=== PATIENT | female | born 1990 | race Caucasian/White ===

== ENCOUNTER 2016-06-20 18:29 | Emergency (ER) | payer MEDICAID ==
[~2016-06-20] VITALS: Ht 167.6 cm; Wt 98.9 kg
[~2016-06-20 18:29] MED LIST: ALBUTEROL-200 PUFFS/ IH; ANUSOL 1%-12.5%1 OIN TP; BACTRIM DS 8001 TAB PO; CLINDAMYCIN300 MG PO; DARVOCET-N 1001 EACH PO; DARVOCET-N6 EACH/PAK PO; DILAUDID2 MG PO; ELIMITE 5%60 GM/TUB1 TP; ENDOMETRIN100 MG VG; FLEXERIL10 MG PO; HYDROMORPHONE 44 MG PO; IBU-8800 MG PO; IMPLANON68 MG ID; KEFLEX 500MG.500 MG PO; KEFLEX500 M1 PO; LABETALOL200 MG PO; LEVAQUIN500 MG PO; LEVSIN/SL0.125 MG SL; LORTAB 5/500 501 TAB PO; MECLIZINE HYDRO25 MG PO; MEDROXYPROGESTE10 MG PO; MELOXICAM15 MG PO; MOTRIN 400MG.400 MG PO; MOTRIN600 MG PO; NAPROSYN 500MG500 MG PO; NOMEDS *; NOMEDS XX; NORCO 325 MG-51 TAB PO; ONDANSETRON ODT4 MG SL; PERCOCET 325 MG1 TA4 PO; PERCOCET 5/3251 EACH PO; PERCOCET 650 MG1 TAB PO; PHENERGAN 25MG.25 M1 PO; PHENERGAN25 M3 PO; PREDNISONE 20MG20 MG PO; PRENATAL PLUS1 TA1 PO; PROGESTERONE VG; PROVERA10 MG OR; PYRIDIUM 200MG200 MG PO; PYRIDIUM100 MG PO; ROBITUSSIN120 ML/BOT PO; SEPTRA DS 800 M1 TAB PO; TYLENOL ES500 M1 PO; TYLENOL ES500 MG PO; TYLENOL W/CODEI1 TA2 PO; TYLENOL WITH CO1 TA1 PO; ULTRAM 50 MG TA50 MG PO; ULTRAM50 MG PO; VERMOX100 MG PO; VIBRAMYCIN 100100 MG PO; VICODIN 5/500 T1 TAB PO; VOLTAREN75 MG PO; ZOFRAN ODT4 MG PO; ZOFRAN4 MG PO
[2016-06-20 18:45] LABS: UTC STREP SCREEN NOT DETECTED (NOTDETECTED)
[2016-06-20 18:47] VITALS: BP 124/89
[2016-06-20] MEDS ORDERED: ZITHROMAX Z PA250 MG PO (18:48)
[2016-06-20] MEDS ORDERED: MEDROL 4MG. DOSE4 MG PO (18:48)
--- NOTE | 2016-06-20 18:49 | Urgent Treatment Center Report ---
History of Present Issue Date/Time Seen by Provider 06/20/16 1842 Visit Reason Pt arrived:Walked Presenting Problem:HEADACHES, BLISTERS IN HER THROAT, FEVERS AND CHILLS. Location if Accident: Onset of symptoms date/time:/ or onset unknown for:MEDICAL HX UNKNOWN Have you (or family members/close friends) recently traveled outside the [place]? N If Yes, where/when: Have you had exposure to infectious disease within the past month? TB? Other? Specify: Patient states that she has blisters in her throat having fever chills and headaches state that she just doesn't feel well at all for the last 2 days. ALLERGIES Coded Allergies: penicillin G (06/10/15) History Medical History General CAD? No Angina: No [place]: No Hypertension? No Hyperlipidemia? No CHF? No DVT? No PE? No COPD? No Asthma? Yes Anemia? No GERD? No Gastric ulcers? No GI Bleed? No Hernia? No Thyroid Problems? No Hypothyroidism? No CVA? No Seizures? No Diabetes? No Insulin Pump: No Home FSBS? No Renal Insuffiency? No UTI? Yes Stones? No BPH? No GB Disease: Yes Nephritic Syndrome? No Asplenia? No Hepatitis? No Sickle Cell Disease? No Arthritis? No Migraines? No Cataracts? No Glaucoma? No MRSA? No HIV? No TB? No Anxiety? No Depression? No Cancer? No Immunization HX DT/Tetanus 1-4 Years Ago Flu Refused Pneumonia Refuses Surgical Hx Previous Surgery?Y D & C RT FALLOPIAN TUBE Family History Family HX Diabetes Yes CAD No Hypertension Yes Hyperlipidemia No Cancer Yes TB No Social History Smoking Hx Smoker: Current Every Day Smoker Tobacco: Yes Type Cigarettes Packs/day 1 1/2 - 2 Packs Alcohol Alcohol: No Review of Systems All Other Systems Reviewed and Negative Constitutional chills, fever ENT throat pain. Musculoskeletal other (body aches) Physical Exam Vital Signs Vital Signs Date Time Temp Pulse Resp B/P Pulse O2 O2 Flow FiO2 Ox Delivery Rate 06/20 1846 98.3 103 20 124/89 97 06/20 183 98.3 103 20 124/89 97 General Appearance Patient appears ill, sitting in chair, pale in color Ear, Nose, Throat tonsillar exudate, tonsillar swelling, Throat bright red, blisters noted on tonsils, white drainage from lesions noted Respiratory Status Yes: trachea midline, chest symmetrical. No: respiratory distress. 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 No Results/Orders Laboratory Tests 06/20/161835: Influenza Type A Ag Pending, Influenza Type B Ag Pending, Group A Strep Screen Pending Orders Procedure Date/time Status UTC STREP SCREEN 06/21 1835 Active UTC FLU A,B 06/21 1835 Active Departure Departure Time of Disposition 1848 Disposition DC Home or Self Care(routine) Clinical Impression Primary Impression: Upper respiratory infection Qualifiers: URI type: acute tonsillitis Pharyngitis/tonsillitis etiology: unspecified etiology Qualified Code: J03.90 - Acute tonsillitis, unspecified Condition STABLE Referrals Berry Cage MD (Family) Patient Instructions Sore Throat Additional Instructions Over the counter Motrin or Tylenol as needed for fever Follow up with family doctor Return if needed Discharge Counseling Counseled pt/family regarding diagnosis, test results, medications/RX, home care, follow up needs Prescriptions Current Visit Scripts Azithromycin (Zithromycin (Z-LEN) 250MG Tab) 250 MG PO DAILY #6 TAB TAKE TWO (2) TABLETS ON DAY 1, THEN ONE (1) TABLET DAY #2 THRU #5 Methylprednisolone (Medrol Dose Len) 4 MG PO UD #1 LEN TAKE DIRECTED ON PACKAGING at 1849
== END 2016-06-20 18:53 | disposition home or self-care (01) ==
LOC: UTC 18:29
PROVIDERS: Nurse Practitioner
DX: J03.90 Acute tonsillitis, unspecified (principal)

== ENCOUNTER 2016-10-18 23:10 | Emergency (ER) | payer MEDICAID ==
[~2016-10-18] VITALS: Ht 167.6 cm; Wt 95.3 kg
[~2016-10-18 23:10] MED LIST changes: +CLINDAMYCIN HC300 MG PO; +IBUPROFEN800 MG PO; +MEDROL 4MG. DOSE4 MG PO; +ZITHROMAX Z PA250 MG PO
[2016-10-18 23:24] LABS: URINE BILIRUBIN - DIPSTICK NEGATIVE (NEG); URINE BLOOD NEGATIVE (NEG)
--- NOTE | 2016-10-18 23:24 | Emergency Room Report ---
History of Present Illness Time Seen by MD Quiles Presenting Problem in Triage Pt arrived:Walked Presenting Problem:THINKS SHE MAY BE REQUESTING TEST AND WANTS CONTROL BAR REMOVED. 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 N Clinical Suspician of Infection? N Mental Status: 1 - Regular (Normal Baseline) Sepsis Risk:Low Sepsis Risk Have you (or family members/close friends) recently traveled outside the [place]? N If Yes, where/when: Have you had exposure to infectious disease within the past month? N TB? Other? Specify: Source patient, RN notes reviewed, family, old records Exam Limitations no limitations Comment pt with abm menses and had possible home preg test pos - no bleeding - has implant Cardiac Chest Pain Chest pain indicative of cardiac No Timing/Duration this evening Severity moderate ALLERGIES Coded Allergies: penicillin G (08/09/16) History Medical History General CAD? No Angina: No [place]: No Hypertension? No Hyperlipidemia? No CHF? No DVT? No PE? No COPD? No Asthma? Yes Anemia? No GERD? No Gastric ulcers? No GI Bleed? No Hernia? No Thyroid Problems? No Hypothyroidism? No CVA? No Seizures? No Diabetes? No Insulin Pump: No Home FSBS? No Renal Insuffiency? No End Stage Renal Disease? No UTI? Yes Stones? No BPH? No GB Disease: Yes Nephritic Syndrome? No Asplenia? No Hepatitis? No Sickle Cell Disease? No Arthritis? No Migraines? Yes Cataracts? No Glaucoma? No MRSA? No HIV? No TB? No Anxiety? No Depression? No Cancer? 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 Respiratory denies cough, denies shortness of breath, denies wheezing Cardiovascular denies chest pain, denies palpitations, denies syncope Gastrointestinal see HPI, denies abdominal pain, nausea, denies vomiting Genitourinary see HPI. denies: dysuria, frequency, hesitancy, hematuria. Musculoskeletal denies back pain, denies joint pain, denies joint swelling, denies neck pain Skin denies rash Psychiatric/Neurological denies seizure Physical Exam Vital Signs Vital Signs Date Time Temp Pulse Resp B/P Pulse O2 O2 Flow FiO2 Ox Delivery Rate 10/18 2313 98.2 83 18 154/100 99 - WBC >12,000 or <4,000 or 10% bands? 2 or more SIRS Criteria Met? B/P:154/100 MAP:118 Creatinine >2.0? UA output<0.5ml/kg/hr for 2 hrs? Platelet count >100,000? Lactate >2.0mmol/1? INR >1.2 or PTT > than 60 sec? Evidence of Organ Dysfunction? Provider documented clinical suspician of infection? N Sepsis Criteria Count: 0 Sepsis Risk: Low Sepsis Risk General Appearance no apparent distress Eye Exam - bilateral eye PERRL, bilateral eye EOMI Ear, Nose, Throat normal ENT inspection Neck supple Respiratory Status No: respiratory distress. 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 No Results/Orders Laboratory Tests 10/18/165: Urine Color YELLOW, Urine Appearance CLEAR, Urine pH 6.0, Ur Specific [place] >= 1.030, Urine Protein TRACE H, Urine Ketones NEGATIVE, Urine Blood NEGATIVE, Urine Nitrate NEGATIVE, Urine Bilirubin NEGATIVE, Urine Urobilinogen 0.2, Ur Leukocyte Esterase NEGATIVE, Urine RBC OCC, Urine WBC 3-5, Ur Squamous Epith Cells 3-5, Amorphous Sediment 1+, Urine Bacteria 1+, Urine Mucus 1+, Urine Glucose NEGATIVE Orders Procedure Date/time Status URINALYSIS/COMPLETE 10/18 2316 Complete URINE 10/18 2316 Complete Departure Departure Time of Disposition 2344 Disposition DC Home or Self Care(routine) Clinical Impression Primary Impression: Menstrual abnormality Condition STABLE Referrals Berry Cage MD (Family) Patient Instructions Medications and Additional Instructions see autotransfusionist for follow up Discharge Counseling Counseled pt/family regarding diagnosis, test results, follow up needs ED Critical Care Critical Care No at [id number]
--- NOTE | 2016-10-18 23:24 | Emergency Room Report ---
History of Present Illness Time Seen by MD Quiles Presenting Problem in Triage Pt arrived:Walked Presenting Problem:THINKS SHE MAY BE REQUESTING TEST AND WANTS CONTROL BAR REMOVED. 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 N Clinical Suspician of Infection? N Mental Status: 1 - Regular (Normal Baseline) Sepsis Risk:Low Sepsis Risk Have you (or family members/close friends) recently traveled outside the [place]? N If Yes, where/when: Have you had exposure to infectious disease within the past month? N TB? Other? Specify: Source patient, RN notes reviewed, family, old records Exam Limitations no limitations Comment pt with abm menses and had possible home preg test pos - no bleeding - has implant Cardiac Chest Pain Chest pain indicative of cardiac No Timing/Duration this evening Severity moderate ALLERGIES Coded Allergies: penicillin G (08/09/16) History Medical History General CAD? No Angina: No [place]: No Hypertension? No Hyperlipidemia? No CHF? No DVT? No PE? No COPD? No Asthma? Yes Anemia? No GERD? No Gastric ulcers? No GI Bleed? No Hernia? No Thyroid Problems? No Hypothyroidism? No CVA? No Seizures? No Diabetes? No Insulin Pump: No Home FSBS? No Renal Insuffiency? No End Stage Renal Disease? No UTI? Yes Stones? No BPH? No GB Disease: Yes Nephritic Syndrome? No Asplenia? No Hepatitis? No Sickle Cell Disease? No Arthritis? No Migraines? Yes Cataracts? No Glaucoma? No MRSA? No HIV? No TB? No Anxiety? No Depression? No Cancer? 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 Respiratory denies cough, denies shortness of breath, denies wheezing Cardiovascular denies chest pain, denies palpitations, denies syncope Gastrointestinal see HPI, denies abdominal pain, nausea, denies vomiting Genitourinary see HPI. denies: dysuria, frequency, hesitancy, hematuria. Musculoskeletal denies back pain, denies joint pain, denies joint swelling, denies neck pain Skin denies rash Psychiatric/Neurological denies seizure Physical Exam Vital Signs Vital Signs Date Time Temp Pulse Resp B/P Pulse O2 O2 Flow FiO2 Ox Delivery Rate 10/18 2313 98.2 83 18 154/100 99 - WBC >12,000 or <4,000 or 10% bands? 2 or more SIRS Criteria Met? B/P:154/100 MAP:118 Creatinine >2.0? UA output<0.5ml/kg/hr for 2 hrs? Platelet count >100,000? Lactate >2.0mmol/1? INR >1.2 or PTT > than 60 sec? Evidence of Organ Dysfunction? Provider documented clinical suspician of infection? N Sepsis Criteria Count: 0 Sepsis Risk: Low Sepsis Risk General Appearance no apparent distress Eye Exam - bilateral eye PERRL, bilateral eye EOMI Ear, Nose, Throat normal ENT inspection Neck supple Respiratory Status No: respiratory distress. 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 No Results/Orders Laboratory Tests 10/18/165: Urine Color YELLOW, Urine Appearance CLEAR, Urine pH 6.0, Ur Specific [place] >= 1.030, Urine Protein TRACE H, Urine Ketones NEGATIVE, Urine Blood NEGATIVE, Urine Nitrate NEGATIVE, Urine Bilirubin NEGATIVE, Urine Urobilinogen 0.2, Ur Leukocyte Esterase NEGATIVE, Urine RBC OCC, Urine WBC 3-5, Ur Squamous Epith Cells 3-5, Amorphous Sediment 1+, Urine Bacteria 1+, Urine Mucus 1+, Urine Glucose NEGATIVE Orders Procedure Date/time Status URINALYSIS/COMPLETE 10/18 2316 Complete URINE 10/18 2316 Complete Departure Departure Time of Disposition 2344 Disposition DC Home or Self Care(routine) Clinical Impression Primary Impression: Menstrual abnormality Condition STABLE Referrals Berry Cage MD (Family) Patient Instructions Medications and Additional Instructions see window decorator for follow up Discharge Counseling Counseled pt/family regarding diagnosis, test results, follow up needs ED Critical Care Critical Care No at [id number]
--- OUTSIDE RECORDS SUMMARY | 2016-10-18 23:32 | External Medical Summary Rpt ---
Author Author , Organization [employer] Address Unknown Phone Unavailable Care Team Providers Care Foster Winder Name Role Phone A Mariama LONG MD PSC, A Unavailable Unavailable Mariama LONG MD PSC ALFARIS MOH, ALFARIS Unavailable Unavailable MOH ALFARIS MOH, ALFARIS Unavailable Unavailable MOH Casey Israel MD, Unavailable Unavailable Casey DOE, GOLDY DOE Unavailable Unavailable [facility] Unavailable Unavailable [facility], [facility] Unavailable Unavailable [facility]IES, [facility]available Unavailable SERVICE, [facility] Unavailable Unavailable SERVICE, [facility] LANGSTON VEL, LANGSTON Unavailable Unavailable VEL LANGSTON VEL, LANGSTON Unavailable Unavailable VEL MELA LANGSTON, Unavailable Unavailable MELA LANGSTON [facility], Unavailable Unavailable [facility], Unavailable Unavailable [facility] СЕРГЕЙ LEVY, Unavailable Unavailable СЕРГЕЙ LEVY MARIPOSA, ANTONIO Unavailable Unavailable MARIPOSA ANTONIO MARIPOSA, ANTONIO Unavailable Unavailable MARIPOSA ISABELA ALVAREZ, Unavailable Unavailable ISABELA ALVAREZ MD, Unavailable Unavailable GIANCARLO CARBAJAL MD HARPEYvon LÓPEZ, HARPEL Unavailable Unavailable LÓPEZ HARPEYvon LÓPEZ, HARPEL Unavailable Unavailable LÓPEZ [facility] Unavailable Unavailable CENTER, [facility] Unavailable Unavailable CENTER, HOSP Unavailable Unavailable INC, [facility] Un[facility], [facility] OZ W[facility], Unavailable Unavailable O[facility] W[facility] Unavailable Unavailable SERVICES, [facility] RANDY RACHEL, RANDY RACHEL Unavailable Unavailable RANDY RACHEL, RANDY RACHEL Unavailable Unavailable [facility] Unavailable Unavailable LAB[facility] Unavailable Unavailable LAB, [id number], Unavailable Unavailable [id number] CHRISTEN PRESCOTT, CHRISTEN PRESCOTT Unavailable Unavailable CHRISTEN PRESCOTT, CHRISTEN PRESCOTT Unavailable Unavailable SOKAN BAB, SOKAN BAB Unavailable Unavailable [facility] Unavailable Unavailable #[id number], [id number] DOREEN BARCLAY III, Unavailable Unavailable DOREEN BARCLAY III TANNER FELIPE HART Unavailable Unavailable LONG A, ETHAN A Unavailable Unavailable Purpose Continuity of Care Document - 04-05-2009 through 2016 Problems Code Diagnosis DOS Provider Status 1121 CANDIDIASIS 11-28-2013 [facility] S V259 UNSPECIFIED 11-28-2013 HARPEL LÓPEZ CONTRACEPTI VE MANAGEMENT V7231 ROUTINE 11-28-2013 HARPEL LÓPEZ GYNECOLOGIC AL EXAMINATION 6825 CELLULITIS 07-02-2013 ALFARIS MOH AND ABSCESS OF BUTTOCK 8471 THORACIC 02-14-2013 RANDY RACHEL SPRAIN AND STRAIN V8534 BODY MASS 02-14-2013 RANDY RACHEL INDEX 34.0-34.9 ADULT 8483 SPRAIN AND 01-20-2013 RANDY RACHEL STRAIN OF RIBS 00480 OTHER ACUTE 01-15-2013 [facility] PAIN V2509 OT GENERAL 11-22-2012 HARPEL LÓPEZ CNSL&ADVICE CONTRACEPT MANAGEMENT V242 ROUTINE 11-15-2012 HARPEL LÓPEZ FOLLOW-UP 64441 SEVERE 10-13-2012 HARPEL LÓPEZ PRE-ECLAMPS IA, WITH DELIVERY 22488 ABNORM 10-13-2012 HARPEL LÓPEZ HEART RATE/RHYTHM ANTPRTM COND/COMP 75501 C/S DELIV 10-13-2012 HARPEL LÓPEZ W/O INDICAT DELIV W/WO ANTPRTM COND V270 OUTCOME OF 10-13-2012 HARPEL LÓPEZ DELIVERY SINGLE LIVEBORN 84682 MILD OR 10-11-2012 CHRISTEN PRESCOTT UNSPECIFIED PRE-ECLAMPS IA WITH DELIVERY 09885 ABN FETL 10-11-2012 CHRISTEN PRESCOTT HRT RATE/RHYTHM DELIV W/WO ANTPRTM COND 00975 UNSPEC 10-08-2012 HARPEL LÓPEZ HYPERTENSIO N COND/COMPL 22941 OTHER 10-08-2012 [facility] SPECIFED [facility] COMPLICATIO N ANTEPARTUM V221 SUPERVISION 10-08-2012 HARPEL LÓPEZ OF OTHER NORMAL 73800 OTH CURRENT 09-17-2012 [facility] E ELSW ANTPRTM 7245 UNSPECIFIED 09-17-2012 [facility] 789.67 789.67 09-17-2012 [facility] ABDOMINAL [facility] TENDERNESS, Hospital GENERALIZED 21432 ABDOMINAL 09-17-2012 [facility] TENDERNESS, [facility] GENERALIZED 36423 HEAD 09-17-2012 [facility] INJURY, AMBULANCE UNSPECIFIED SERVICE E849.8 E849.8 09-17-2012 [facility] ACCIDENT IN [facility] E880.9 E880.9 FALL 09-17-2012 [facility] ON [facility] STAIR/STEP Hospital [facility] E8809 ACCIDENTAL 09-17-2012 ABHIJIT FALL ON OR EMERGENCY FROM OTHER SERVICES STAIRS OR STEPS E8889 UNSPECIFIED 09-17-2012 [facility] V22.2 V22.2 PREG 09-17-2012 [facility] Hospital V222 09-17-2012 [facility] INCIDENTAL [facility] V286 SCREENING 09-13-2012 [facility] STREPTOCOCC INC US B 5990 URINARY 08-30-2012 [facility] TRACT [facility] INFECTION INC SITE NOT SPECIFIED 13355 THREATENED 08-30-2012 [facility] PRE[facility] LABOR ANTEPARTUM 79407 UNSPECIFIED 07-29-2012 HARPEL LÓPEZ VAGINITIS AND VULVOVAGINI TIS V771 SCREENING 07-18-2012 [facility] FOR [facility] DIABETES INC MELLITUS 32572 DECR 06-19-2012 [facility] MOVMNTS MGMT MOTH ANTPRTM COND/COMP 558.9 558.9 06-09-2012 [facility] IT NEC 5589 OTH&UNSPEC 06-09-2012 [facility]ECT[facility] US SERVICES GASTROENTER ITIS&COLITI S 75725 OTH CURRENT 06-09-2012 [facility]NAL [facility] CCE-COMPL SERVICES PG CB/PP-UNS EOC V2889 OTHER 05-23-2012 [facility] SPECIFIED [facility] SCREENING 32731 UNSPEC 03-25-2012 HARPEL LÓPEZ HEMORRHAGE EARLY ANTEPARTUM 62748 THREATENED 03-16-2012 [facility] , [facility] ANTEPARTUM INC 94776 UNSPEC 03-16-2012 ANTONIO MARIPOSA HEMORR EARLY PG UNSPEC EPIS CARE 6268 OTH D/O 03-09-2012 [facility] MENSTRUATIO [facility] N&OTH ABN INC BLEED FE GNT TRACT V2881 ENCOUNTER 03-01-2012 HARPEL LÓPEZ FOR ANATOMIC SURVEY V704 EXAMINATION 03-01-2012 HARPEL LÓPEZ FOR MEDICOLEGAL REASON 86285 TRICHOMONAL 08-28-2011 HARPEL LÓPEZ VULVOVAGINI TIS V745 SCREENING 08-17-2011 HARPEL LÓPEZ EXAMINATION FOR VENEREAL DISEASE 6262 EXCESSIVE 08-07-2011 HARPEL LÓPEZ OR FREQUENT MENSTRUATIO N 7840 HEADACHE 05-24-2011 Lori LONG MD [facility] 7614 FETUS/NEWBO 03-03-2011 GIANCARLO Love RN AFFECTED ANURADHA DOE ECTOPIC MOTHER V2502 GENERAL 03-03-2011 GIANCARLO Love CNSL ANURADHA DOE INITIATION OT CONTRACEPT MEASURES 6202 OTHER AND 02-17-2011 GIANCARLO Love UNSPECIFIED ANURADHA DOE OVARIAN CYST 27014 TUBAL 02-17-2011 PATHOLOGY & CYTOLOGY WITHOUT LAB INTRAUTERIN E 77289 UNSPEC 02-16-2011 [facility] WITHOUT IMAGING ASS INTRAUTERIN E PG 632 MISSED 02-11-2011 [facility] V7242 02-08-2011 [facility] EXAMINATION HE[facility] OR TEST CENTER POSITIVE RESULT 6269 UNS D/O 05-31-2009 ABHIJIT MENSTRUATIO EMERGENCY N&OTH ABN SERVICES BLEED FE ASSOCIATES GNT TRACT 10687 UNSPECIFIED 05-21-2009 [facility] DENTAL [facility] CARIES INC 5259 UNSPECIFIED 05-21-2009 ABHIJIT DISORDER EMERGENCY TEETH&SUPPO SERVICES [facility] STRUCTURES 6238 OTHER 04-27-2009 [place] NONINFLAMMA [facility] DISORDER VAGINA B34.9 VIRAL INFECTION, UNSPECIFIED B86 SCABIES E86.0 DEHYDRATION H81.399 OTHER PERIPHERAL VERTIGO, UNSPECIFIED EAR J40 BRONCHITIS, NOT SPECIFIED ACUTE OR CHRONIC K11.20 SIALOADENIT IS, UNSPECIFIED K52.9 NONINFECTIV E GASTROENTER ITIS AND COLITIS, UNSPECIFIED K75.9 INFLAMMATOR Y LIVER DISEASE, UNSPECIFIED K80.00 CALCULUS OF GALLBLADDER W ACUTE CHOLECYST W/O OBSTRUCTION K80.20 CALCULUS OF GALLBLADDER W/O CHOLECYSTIT IS W/O OBSTRUCTION K80.50 CALCULUS OF BILE DUCT W/O CHOLANGITIS OR CHOLECYST W/O OBST L02.31 CUTANEOUS ABSCESS OF BUTTOCK L03.317 CELLULITIS OF BUTTOCK L05.91 PILONIDAL CYST WITHOUT ABSCESS M54.9 DORSALGIA, UNSPECIFIED N39.0 URINARY TRACT INFECTION, SITE NOT SPECIFIED O26.611 LIVER AND BILIARY TRACT DISORD IN , FIRST TRIMESTER O26.613 LIVER AND BILIARY TRACT DISORD IN , THIRD TRIMESTER R10.11 RIGHT UPPER QUADRANT PAIN R10.9 UNSPECIFIED ABDOMINAL PAIN R11.2 NAUSEA WITH VOMITING, UNSPECIFIED R51 HEADACHE Z33.1 STATE, INCIDENTAL Z34.90 ENCNTR FOR SUPRVSN OF NORMAL , UNSP, UNSP TRIMESTER Z72.0 TOBACCO USE Allergies, Adverse Reactions, Alerts Type Drug Allergy Adverse Reaction to Substance Substance Reaction Severity Penicillin I-HIVES Unknown Medications Na ND Rx Da Fi Fi Am Da Di Ph RX Ph St me C No te ll ll ou ys ag ar # ys at rm s nt no ma ic us Or Da si cy ia de te s n re d Ke 50 06 0 No to 11 -3 ro 10 0- Lo la 60 20 ng c 80 13 er 10 1 MG Ac ti Ta ve bl et Ke 50 06 0 No to 11 -2 ro 10 9- Lo la 60 20 ng c 80 13 er 10 1 MG Ac ti Ta ve bl et So 00 06 0 No di 07 -2 um 47 8- Lo 10 20 ng Ch 12 13 er lo 3 ri Ac de ti ve 0. 9% 10 0M L Ad v CL 00 06 0 No EO 00 -2 CI 90 8- Lo N 90 20 ng PH 21 13 er OS 8 Ac 15 ti 0 ve MG /M L AL MA 00 06 2 No PA 90 -2 P 41 8- Lo 32 98 20 ng 5 26 13 er MG 1 Ac TA ti BL ve ET OX 00 06 2 No YC 40 -2 OD 60 8- Lo ON 55 20 ng E 26 13 er HC 2 L Ac 5 ti MG ve TA BL ET Si 00 06 2 No me 18 -2 th 28 8- Lo ic 64 20 ng on 38 13 er e 9 80 Ac MG ti ve Ch ew ab le Ta bl ON 00 06 0 No DA 64 -2 NS 16 8- Lo ET 08 20 ng RO 02 13 er N 5 HC Ac L ti 4 ve MG /2 ML AL KE 00 06 2 No TO 40 -2 RO 93 8- Lo LA 79 20 ng C 50 13 er 30 1 Ac MG ti /M ve L AL SO 00 06 0 No DI 40 -2 UM 97 8- Lo 98 20 ng CH 43 13 er LO 7 RI Ac DE ti ve 0. 9% SO TONY TI ON LE 25 06 0 No VO 02 -2 FL 10 8- Lo OX 13 20 ng AC 28 13 er IN 2 Ac 50 ti 0 ve MG /1 00 ML -D 5W LA [address] 40 -2 AT 97 8- Lo ED 95 20 ng 30 13 er RI 9 NG Ac ER ti S ve IN JE CT IO N MA 00 06 4 No GN 40 -2 ES 96 6- Lo IU 72 20 ng M 90 13 er GOINS 3 LF Ac ti 20 ve G/ 50 0 ML BA G MA 00 06 1 No GN 40 -2 ES 96 5- Lo IU 72 20 ng M 90 13 er GOINS 3 LF Ac ti 20 ve G/ 50 0 ML BA G LA [address] 40 -2 AT 97 5- Lo ED 95 20 ng 30 13 er RI 9 NG Ac ER ti S ve IN JE CT IO N BU 55 06 0 No TO 39 -2 RP 00 5- Lo GUNN 18 20 ng NO 30 13 er L 1 1 Ac MG ti /M ve L AL ON 55 02 0 No DA 11 -2 NS 10 4- Lo ET 15 20 ng RO 31 13 er N 3 HC Ac L ti 4 ve MG TA BL ET ME 00 02 02 00 10 10 [place] [address] 55 -1 -2 .0 L- 58 HR ti OX 50 5- 6- 00 MA 60 MA ve YP 77 20 20 RT 2 N RO 90 10 10 II GE [address] AR WI ER MA LL ON CY IA E M 10 #5 E 91 MG TA B 00 02 02 00 12 3 WA 44 RU Ac 40 -0 -1 .0 L- 83 SH ti 60 1- 1- 00 MA 20 ve 35 20 20 RT 6 NE 70 10 10 IL 5 PH C AR MA CY #5 91 00 01 01 00 12 2 RI 81 GUNN Ac 40 -1 -2 .0 TE 75 RP ti 60 6- 8- 00 05 EL ve 35 20 20 AI 70 10 10 D GE 5 PH RA AR LD M R #3 93 8 00 01 01 00 10 3 RI 81 GUNN Ac 07 -1 -2 .0 TE 75 RP ti 80 6- 8- 00 04 EL ve 05 20 20 AI 40 10 10 D GE 5 PH RA AR LD M R #3 93 8 00 01 01 00 20 2 WA 44 CL Ac 40 -0 -1 .0 L- 82 AR ti 60 8- 4- 00 MA 60 KE ve 35 20 20 RT 7 70 10 10 DE 5 PH RE AR K MA J CY #5 91 Vital Signs 10-11-2012 07:06 Name Value Interpretat Reference Comment ion Range Weight 251 [lb_av] Measured Weight 113.853 kg Measured 09-17-2012 19:36 Name Value Interpretat Reference Comment ion Range BP 78 mm[Hg] Diastolic BP Systolic 145 mm[Hg] 09-17-2012 19:35 Name Value Interpretat Reference Comment ion Range Body 98.6 [degF] Temperature Heart 91 /min Rate/Pulse O2% 98 % Respiratory 16 /min Rate 09-17-2012 19:34 Name Value Interpretat Reference Comment ion Range BP 78 mm[Hg] Diastolic BP Systolic 145 mm[Hg] Heart 91 /min Rate/Pulse O2% 98 % Respiratory 16 /min Rate 06-09-2012 22:14 Name Value Interpretat Reference Comment ion Range Body 98.4 [degF] Temperature BP 69 mm[Hg] Diastolic BP Systolic 134 mm[Hg] Heart 81 /min Rate/Pulse O2% 97 % Respiratory 17 /min Rate 06-09-2012 22:12 Name Value Interpretat Reference Comment ion Range Body 98.4 [degF] Temperature 06-09-2012 21:42 Name Value Interpretat Reference Comment ion Range BP 85 mm[Hg] Diastolic BP Systolic 127 mm[Hg] Heart 80 /min Rate/Pulse O2% 98 % Respiratory 17 /min Rate Results Labs Lab Lab Date Result Refere Interp Status Commen Order Detail nces retati t Range on pH BldCo (10-11-2012 09:01) pH 7.37 7.35-7. complet BldCo 013 UNK 45 ed 09:01 Magnesium SerPl-mCnc (10-10-2012 06:50) Magnesi 3.2 1.4-2.2 complet um 013 mg/dL ed SerPl-m 06:50 Cnc BASIC METABOLIC PANEL (10-10-2012 06:50) Glucose 83 74-106 complet 013 mg/dL ed Bld-mCn 06:50 c BUN 4 mg/dL 7-18 complet Bld-mCn 013 ed c 06:50 Creat 2 0.6 0.6-1.0 complet SerPl-m 013 mg/dL ed Cnc 06:50 ESTIMAT 0627-2 267 50-200 complet ED 013 ML/MIN ed CREATIN 06:50 INE CLEARAN CE GFR 126 59- complet (ESTIMA 013 ML/MIN ed JUDITH) 06:50 Sodium 137 136-145 complet SerPl-s 013 mmoL/L ed Cnc 06:50 Potassi 3.8 3.5-5.1 complet um 013 mmoL/L ed SerPl-s 06:50 Cnc Chlorid 105 98-107 complet e 013 mmoL/L ed SerPl-s 06:50 Cnc CO2 24 21.0-32 complet SerPl-s 013 mmoL/L .0 ed Cnc 06:50 Calcium 7.7 8.5-10. complet 013 mg/dL 1 ed SerPl-m 06:50 Cnc URIC ACID (10-10-2012 06:50) URIC 5.5 2.6-7.2 complet ACID 013 mg/dL ed 06:50 AST SerPl-cCnc (10-10-2012 06:50) AST 10 U/L 15-37 complet SerPl-c 013 ed Cnc 06:50 ALT SerPl-cCnc (10-10-2012 06:50) ALT 25 U/L 30-65 complet SerPl-c 013 ed Cnc 06:50 PROTIME/INR (10-10-2012 06:50) PROTHRO 9.2 9.9-11. complet MBIN 013 SECONDS 6 ed TIME 06:50 INR Bld 0.86 0.9-1.1 complet 013 UNK ed 06:50 ACT PARTIAL THROMBO TIME (10-10-2012 06:50) ACT 25.7 25.3-32 complet PARTIAL 013 SECONDS .0 ed 06:50 THROMBO TIME Fibrinogen PPP-mCnc (10-10-2012 06:50) Fibrino Greater 204.1-4 complet gen 013 than 58.1 ed PPP-mCn 06:50 500.0 c mg/dL D Dimer PPP (10-10-2012 06:50) D Dimer 1280 0-400 High complet PPP 013 ng/mL alert ed 06:50 CBC with AUTO DIFF (10-10-2012 06:50) WBC # 06-27-2 11.9 4.8-10. complet Bld 013 K/MM3 8 ed Auto 06:50 RBC # 0627-2 4.03 4.2-5.4 complet Bld 013 M/mm3 ed Auto 06:50 Hgb 10-10-2 12.0 12.2-16 complet Bld-mCn 013 g/dL .2 ed c 06:50 Hct Fr 10-10-2 36.8 % 37.0-47 complet Bld 013 .0 ed 06:50 MCV RBC 10-10-2 91.2 fl 82.2-97 complet 013 .8 ed 06:50 MCH RBC 10-10-2 29.7 pg 27-31.2 complet Qn 013 ed Auto 06:50 MEAN 10-10-2 32.5 31.8-35 complet CORPUSC 013 g/dl .4 ed ULAR 06:50 HGB CONC RDW RBC 10-10-2 13.9 % 11.5-17 complet Auto 013 .5 ed 06:50 Platele 10-10-2 300 142-424 complet t Bld 013 K/mm3 ed Ql 06:50 Manual MEAN 10-10-2 8.0 fl 7.4-10. complet PLATELE 013 4 ed T 06:50 VOLUME Granulo 10-10-2 75.2 % 37.0-80 complet cytes 013 .0 ed Fr Bld 06:50 Auto LYMPH % -27-2 18.8 % 10-50.0 complet 013 ed 06:50 Monocyt 27-2 4.8 % 1.7-9.3 complet es Fr 013 ed Bld 06:50 Auto Eosinop -27-2 1.2 % 0.1-12. complet hil Fr 013 0 ed Bld 06:50 Auto Basophi -27-2 0.1 % 0.1-2.0 complet ls Fr 013 ed Bld 06:50 Auto Granulo 06-27-2 8.9 1.8-7.8 complet cytes # 013 K/mm3 ed Bld 06:50 Auto Lymphoc -27-2 2.2 0.7-4.5 complet ytes Fr 013 K/mm3 ed Bld 06:50 Auto Monocyt 06-27-2 0.6 0.1-1.0 complet es # 013 K/mm3 ed Bld 06:50 Auto Eosinop 2 0.1 0.0-0.4 complet hil # 013 K/mm3 ed Bld 06:50 Auto Basophi 2 0.0 0-0.2 complet ls # 013 K/MM3 ed Bld 06:50 Auto URINE TOTAL PROT 24 HOUR (10-09-2012 17:45) URINE 24 complet COLLECT 013 HOURS ed ION 17:45 TIME URINE 3000 mL 600-160 complet TOTAL 013 0 ed VOLUME 17:45 URINE 381 40-90 complet TOTAL 013 mg/24 ed PROTEIN 17:45 HR CONC Magnesium SerPl-mCnc (10-09-2012 06:15) Magnesi 4.4 1.4-2.2 complet um 013 mg/dL ed SerPl-m 06:15 Cnc BASIC METABOLIC PANEL (10-08-2012 12:20) Glucose 77 74-106 complet 013 mg/dL ed Bld-mCn 12:20 c BUN 6 mg/dL 7-18 complet Bld-mCn 013 ed c 12:20 Creat 0.6 0.6-1.0 complet SerPl-m 013 mg/dL ed Cnc 12:20 GFR 126 59- complet (ESTIMA 013 ML/MIN ed JUDITH) 12:20 Sodium 136 136-145 complet SerPl-s 013 mmoL/L ed Cnc 12:20 Potassi 3.9 3.5-5.1 complet um 013 mmoL/L ed SerPl-s 12:20 Cnc Chlorid 105 98-107 complet e 013 mmoL/L ed SerPl-s 12:20 Cnc CO2 22 21.0-32 complet SerPl-s 013 mmoL/L .0 ed Cnc 12:20 Calcium 8.5 8.5-10. complet 013 mg/dL 1 ed SerPl-m 12:20 Cnc URIC ACID (10-08-2012 12:20) URIC 5.6 2.6-7.2 complet ACID 013 mg/dL ed 12:20 Magnesium SerPl-mCnc (10-08-2012 12:20) Magnesi 3.2 1.4-2.2 complet um 013 mg/dL ed SerPl-m 12:20 Cnc AST SerPl-cCnc (10-08-2012 12:20) AST 9 U/L 15-37 complet SerPl-c 013 ed Cnc 12:20 ALT SerPl-cCnc (10-08-2012 12:20) ALT 26 U/L 30-65 complet SerPl-c 013 ed Cnc 12:20 PROTIME/INR (10-08-2012 12:20) PROTHRO 9.4 9.9-11. complet MBIN 013 SECONDS 6 ed TIME 12:20 INR Bld 0.88 0.9-1.1 complet 013 UNK ed 12:20 ACT PARTIAL THROMBO TIME (10-08-2012 12:20) ACT 25.9 25.3-32 complet PARTIAL 013 SECONDS .0 ed 12:20 THROMBO TIME Fibrinogen PPP-mCnc (10-08-2012 12:20) Fibrino Greater 204.1-4 complet gen 013 than 58.1 ed PPP-mCn 12:20 500.0 c mg/dL D Dimer PPP (10-08-2012 12:20) D Dimer 1080 0-400 High complet PPP 013 ng/mL alert ed 12:20 CBC with AUTO DIFF (10-08-2012 12:20) WBC # 10-08-2 14.8 4.8-10. complet Bld 013 K/MM3 8 ed Auto 12:20 RBC # 4.41 4.2-5.4 complet Bld 013 M/mm3 ed Auto 12:20 Hgb 12.9 12.2-16 complet Bld-mCn 013 g/dL .2 ed c 12:20 Hct Fr 39.7 % 37.0-47 complet Bld 013 .0 ed 12:20 MCV RBC 90.0 fl 82.2-97 complet 013 .8 ed 12:20 MCH RBC 29.3 pg 27-31.2 complet Qn 013 ed Auto 12:20 MEAN 06-25-2 32.5 31.8-35 complet CORPUSC 013 g/dl .4 ed ULAR 12:20 HGB CONC RDW RBC 06-25-2 13.6 % 11.5-17 complet Auto 013 .5 ed 12:20 Platele 06-25-2 321 142-424 complet t Bld 013 K/mm3 ed Ql 12:20 Manual MEAN 06-25-2 8.0 fl 7.4-10. complet PLATELE 013 4 ed T 12:20 VOLUME Granulo 06-25-2 79.3 % 37.0-80 complet cytes 013 .0 ed Fr Bld 12:20 Auto LYMPH % 06-25-2 15.4 % 10-50.0 complet 013 ed 12:20 Monocyt 06-25-2 3.7 % 1.7-9.3 complet es Fr 013 ed Bld 12:20 Auto Eosinop 06-25-2 1.3 % 0.1-12. complet hil Fr 013 0 ed Bld 12:20 Auto Basophi 06-25-2 0.3 % 0.1-2.0 complet ls Fr 013 ed Bld 12:20 Auto Granulo 06-25-2 11.7 1.8-7.8 complet cytes # 013 K/mm3 ed Bld 12:20 Auto Lymphoc 06-25-2 2.3 0.7-4.5 complet ytes Fr 013 K/mm3 ed Bld 12:20 Auto Monocyt 06-25-2 0.6 0.1-1.0 complet es # 013 K/mm3 ed Bld 12:20 Auto Eosinop 06-25-2 0.2 0.0-0.4 complet hil # 013 K/mm3 ed Bld 12:20 Auto Basophi 06-25-2 0.0 0-0.2 complet ls # 013 K/MM3 ed Bld 12:20 Auto URINALYSIS/COMPLETE (06-09-2012 21:05) URINE 02-24-2 YELLOW YELLOW complet COLOR 013 ed 21:05 URINE 02-24-2 CLEAR CLEAR complet APPEARA 013 ed NCE 21:05 URINE -24-2 NEGATIV NEG complet GLUCOSE 013 E ed - 21:05 DIPSTIC K URINE 24-2 NEGATIV NEG complet BILIRUB 013 E ed IN - 21:05 DIPSTIC K URINE 24-2 NEGATIV NEG complet KETONE 013 E mg/dL ed 21:05 URINE 24-2 1.010 1.005-1 complet SPECIFI 013 UNK .030 ed C 21:05 GRAVITY URINE 24-2 NEGATIV NEG complet BLOOD 013 E ed 21:05 URINE 24-2 7.0 UNK 5.0-8.5 complet PH 013 ed 21:05 URINE 24-2 NEGATIV NEG complet PROTEIN 013 E mg/dL ed - 21:05 DIPSTIC K URINE 24-2 0.2 NEG complet UROBILI 013 E.U./dL ed NOGEN - 21:05 DIPSTIC K URINE 24-2 NEGATIV NEG complet NITRATE 013 E ed - 21:05 DIPSTIC K URINE 24-2 NEGATIV NEG complet LEUK 013 E ed ESTERAS 21:05 E URINE 06-09-2 3-5 0-5 complet SQUAMOU 013 #/hpf ed S CELLS 21:05 Procedures Procedure DOS Code Location Performer Comment URINLS 10945 HARPEL HARPEL DIP 4 LÓPEZ LÓPEZ STICK/TAB LET REAGNT NON-AUTO MICRSCPY IADNA 71275 BIO BIO CHLAMYDIA 4 REFERNCE REFERNCE LABORATOR LABORATOR TRACHOMAT IES IES IS AMPLIFIED PROBE TQ CULTURE 50712 HARPEL HARPEL CHLAMYDIA 4 LÓPEZ LÓPEZ ANY SOURCE CYTP C/V 99982 BIO BIO AUTO THIN 4 REFERNCE REFERNCE LYR LABORATOR LABORATOR PREPJ SCR IES IES MNL RESCR PHYS IADNA 57572 HARPEL HARPEL NEISSERIA 4 LÓPEZ LÓPEZ GONORRHOE AE DIRECT PROBE TQ IADNA 10833 BIO BIO NEISSERIA 4 REFERNCE REFERNCE LABORATOR LABORATOR GONORRHOE IES IES AE AMPLIFIED PROBE TQ IADNA NOS 86326 BIO BIO 4 REFERNCE REFERNCE 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 PROBE TQ IES IES EACH ORGANISM IADNA 33724 BIO BIO TRICHOMON 4 REFERNCE REFERNCE LABORATOR LABORATOR VAGINALIS IES IES AMPLIFIED PROBE TECH INCISION 00270 ALFARIS ALFARIS & 4 MOH MOH DRAINAGE ABSCESS COMPLICAT ED/MULTIP LE INCISION 41222 ANTONIO ANTONIO & 3 MARIPOSA MARIPOSA DRAINAGE ABSCESS COMPLICAT ED/MULTIP LE CUL BACT 90519 [facility] OREILLY XCPT 3 [facility] URINE INC INC BLOOD/STO OL AEROBIC ISOL SMR PRIM 24433 [facility] L[facility]PEZ L[facility]Z [place] [facility] AGT URINE 57323 [facility] L[facility]PEZ LÓPEZ TEST VISUAL COLOR CMPRSN METHS ETONOGEST J7307 [facility] REL 3 L[facility] L[facility] CNTRACPT IMPL SYS INCL IMPL & SPL INSJ 32854 [facility] NON-BIODE 3 L[facility] L[facility] GRADABLE DRUG DELIVERY IMPLANT CYTP C/V 90473 BIO BIO AUTO THIN 3 REFERNCE REFERNCE LYR LABORATOR LABORATOR PREPJ SCR IES IES MNL RESCR [facility] 36487 [facility] DISCHARGE 3 LÓPEZ LÓPEZ DAY MANAGEMEN T 30 MIN/< SBSQ 76796 [facility] 3 LÓPEZ LÓPEZ CARE/DAY 15 MINUTES LOW 741 [facility] ORE[facility] CERVICAL 3 [facility] INC SECTION 77052 [facility] DELIVERY 3 LÓPEZ LÓPEZ ONLY ANESTHESI 13666 [facility] SHA A 3 DELIVERY ONLY SBSQ 34298 [facility] 3 LÓPEZ LÓPEZ CARE/DAY 15 MINUTES SBSQ 99677 [facility] 3 LÓPEZ LÓPEZ CARE/DAY 15 MINUTES US PREG 70678 [facility] UTERUS 3 [facility] REAL TIME F/U TRNSABDL PER FETUS 35209 [facility] BIOPHYSIC 3 LÓPEZ LÓPEZ AL PROFILE NON-STRES S TESTING 92255 [facility] BIOPHYSIC 3 [facility] [facility] AL PROFILE NON-STRES S TESTING US PELVIC 54730 [facility] 3 [facility] NONOBSTET INC INC RODRIGUEZ REAL-TIME IMAGE COMPLETE GROUND A0425 [facility] 3 AMBULANCE AMBULANCE PER SERVICE SERVICE STATUTE MILE AMBULANCE A0429 [facility] SERVICE 3 AMBULANCE AMBULANCE BLS SERVICE SERVICE EMERGENCY TRANSPORT PARTICLE 94498 [facility] AGGLUTINA 3 [facility] TION INC INC SCREEN EACH ANTIBODY CUL 85764 [facility] PRSMPTV 3 LÓPEZ LÓPE[facility] PTHGNC ORGANISM SCRN W/COLONY ESTIMJ 85349 KIAN [facility] NONSTRESS 3 VEL VEL TEST URNLS DIP 65084 [facility] STICK/TAB INC INC LET REAGENT AUTO MICROSCOP Y FTL 73561 [facility] FIBRONECT 3 [facility] IN INC INC CERVICOVA G SECRETION S SEMI-DARWIN SMR PRIM 48075 [facility] SRC WET 3 LÓPEZ LÓ[facility] MOUNT NFCT AGT GLUCOSE 31384 [facility] POST 3 [facility] GLUCOSE INC INC DOSE BLOOD 78463 [facility] COUNT 3 [facility] COMPLETE INC INC AUTO&AUTO DIFRNTL WBC SMR PRIM 33508 [facility] SRC WET 3 LÓ[facility] MOUNT NFCT AGT 35784 KIAN LANGSTON NONSTRESS 3 VEL VEL TEST US PREG 52724 [facility] UTERUS 3 LÓPEZ LÓPEZ AFTER 1ST TRIMEST GESTATION IAADI 67404 [facility] INFLUENZA 3 [facility] B VIRUS INC INC IAADI 06344 [facility] INFFLUENZ 3 [facility] A A VIRUS INC INC ONDANSETR Q0162 [facility] ON 1 MG 3 [facility] ORL NOT INC [place]CE[place] [address] [place] [address] ABHIJIT HART 3 EMERGENCY UTERUS SERVICES LIMITED 1/> FETUSES URNLS DIP 77378 [facility] STICK/TAB INC INC [place] [address] [facility] ESTRIOL 3 [facility] INC INC ALPHA-FET 39362 [facility] OPROTEIN 3 [facility] SERUM INC INC GONADOTRO 79395 [facility] PIN 3 [facility] CHORIONIC INC INC QU[place]ITAT ANT [place] PREG 03124 [facility] UTERUS 2 LÓPEZ LÓPEZ REAL TIME W/[place] [address] [facility] TRANSVAGI 2 [facility] NAL INC INC URNLS DIP 48000 [facility] 2 [facility] STICK/TAB INC [place] [address] [facility] 2 LÓPEZ LÓPEZ UTERUS LIMITED 1/> FETUSES GONADOTRO 20549 [facility] PIN 2 [facility] CHORIONIC INC INC QUANTITAT ANT URINLS 22748 [facility] DIP 2 LÓPEZ LÓPEZ STICK/TAB LET REAGNT NON-AUTO MICRSCPY CULTURE 18427 [facility] CHLAMYDIA 2 LÓPEZ LÓPEZ ANY SOURCE IADNA 00606 [facility] HERPES 2 LÓPEZ LÓ[facility] SIMPLX VIRUS DIRECT PROBE TQ IADNA 48741 [facility] NEISSERIA 2 LÓPEZ LÓPE[facility] GONORRHOE AE DIRECT PROBE TQ IAADIADOO 07421 [facility] 2 LÓPEZ LÓPE[facility] TRICHOMON VAGINALIS IAADIADOO 16367 [facility] 2 LÓPEZ LÓPEZ TRICHOMON VAGINALIS IADNA NOS 75504 BIO BIO 2 REFERNCE REFERNCE 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 PROBE TQ IES IES EACH ORGANISM IADNA 47020 [facility] HAR[facility] HERPES 2 LÓPEZ LÓPEZ SIMPLX VIRUS DIRECT PROBE TQ CULTURE 53566 [facility] HARPEL CHLAMYDIA 2 LÓPEZ LÓPEZ ANY SOURCE URINLS 82294 [facility]PE[facility] DIP 2 LÓPEZ LÓPEZ STICK/TAB LET REAGNT NON-AUTO MICRSCPY IADNA 61746 [facility] HARPEL NEISSERIA 2 LÓPEZ LÓPEZ GONORRHOE AE DIRECT PROBE TQ URINE 79763 GIANCARLO R HARPEL 1 ANURADHA DOE LÓPEZ TEST [place]ISUAL [place] [address] PATHOLOGY WINSLOW JAM SURG 1 & PATHOLOGY CYTOLOGY LAB GROSS&MARIPOSA ROSCOPIC EXAM LAPAROSCO 54982 GIANCARLO CARBAJAL PY 1 ANURADHA DAWN SALPINGOS NAYLA LAPS SURG 18700 GIANCARLO CARBAJAL W/ASPIR 1 ANURADHA DOE LÓPEZ CAVITY/CY ST SINGLE/MU LTIPLE GONADOTRO 44256 [facility] PIN [facility] CHORIONIC INC INC QUANTITAT ANT US PREG 17833 [facility] UTERUS 1 [facility] REAL TIME INC INC W/IMAGE DCMTN TRANSVAG BLOOD 93202 [facility] TYPING 1 [facility] SEROLOGIC INC INC RH (D) BLOOD 74276 [facility] COUNT 1 [facility] COMPLETE INC INC AUTO&AUTO DIFRNTL WBC US PREG 23165 [facility] REAL TIME CLINIC OF W/IMAGE LINDA DCMTN TRANSVAG ANTIBODY 92682 [facility] SCREEN 1 [facility] RBC EACH INC INC SERUM TECHNIQUE BLOOD 73635 [facility] TYPING 1 [facility] SEROLOGIC INC INC ABO BASIC 96595 [facility] METABOLIC 1 [facility] PANEL INC INC CALCIUM TOTAL GONADOTRO 38855 [facility] PIN 1 [facility] CH[facility]IONIC INC INC QUANTITAT ANT GONADOTRO 24220 [facility] PIN 1 [facility] CHORION[facility] INC INC QUANTITAT ANT GONADOTRO 02682 [facility] PIN 1 [facility] CHORIONIC INC INC QUANTITAT ANT URINE 79252 [facility] 1 [facility] VISUAL COLOR CMPRSN METHS BLOOD 40873 [facility] COUNT 1 [facility] COMPLETE INC INC AUTO&AUTO DIFRNTL WBC GONADOTRO 89317 [facility] PIN 0 [facility] CHORIONIC INC INC QUALITATI VE BLOOD 88892 [facility] COUNT 0 [facility] COMPLETE INC INC AUTO&AUTO DIFRNTL WBC URINE 51422 [facility] 0 [facility] TEST INC [place] [address] ARMIN DELGADOVAGI 0 MEDICAL СЕРГЕЙ NAL IMAGING ASSOCIATE S ASPIRATIO 6952 [facility] N 0 [facility] CURETTAGE [place]LLOW[place]IV[place]/ [place] [address] [facility] INFUSION 0 [facility] THERAPY/P INC INC ROPHYLAXI S /DX 1ST TO 1 [place] [address] [facility] INFUSION 0 [facility] THERAPY INC INC PROPHYLAX IS/DX EA HOUR BLOOD 78562 [facility] COUNT 0 [facility] COMPLETE INC INC AUTO&[place] [address] PATHOLOGY PATHOLOGY SURG 0 & & PATHOLOGY CYTOLOGY CYTOLOGY LAB LAB GROSS&MARIPOSA ROSCOPIC EXAM COMPREHEN 50259 [facility] SIVE 0 [facility] METABOLIC INC INC PANEL GONADOTRO 19519 [facility] PIN 0 [facility] CHORIONIC INC INC QUANTITAT ANT US PREG 21194 [facility]US 0 [facility] J REAL TIME CLINIC OF W/IMAGE DCMTN [place] [facility] IADNA 38170 PATHOLOGY PATHOLOGY CHLAMYDIA 9 & & CYTOLOGY CYTOLOGY TRACHOMAT LAB LAB IS AMPLIFIED PROBE TQ CYTP C/V 09668 PATHOLOGY PATHOLOGY AUTO THIN 9 & & LYR CYTOLOGY CYTOLOGY PREPJ SCR LAB LAB MNL RESCR PHYS IADNA 71627 PATHOLOGY PATHOLOGY NEISSERIA 9 & & CYTOLOGY CYTOLOGY GONORRHOE LAB LAB AE AMPLIFIED PROBE TQ URINE 11514 [facility] VISUAL COLOR CMPRSN METHS GONADOTRO 13618 [facility] PIN 9 [facility] CHORIONIC INC INC QUANTITAT ANT GONADOTRO 85622 [facility] PIN 9 [facility] CHORIONIC INC INC QUANTITAT ANT BLOOD 50892 [facility] TYPING 9 [facility] SEROLOGIC INC INC RH (D) BLOOD 30708 [facility] COUNT 9 [facility] COMPLETE INC INC AUTO&AUTO DIFRNTL WBC US PREG 61781 [facility]ON UTERUS 9 [facility] REAL TIME INC INC W/IMAGE DCMTN TRANSVAG Encounters Encounter Start End Date Code Location Performer Type Date PERIODIC 83988 HARPE[facility] HARPEL PREVENTIV 4 4 LÓPEZ LÓPEZ E MED EST PATIENT 18-39 YRS EMERGENCY 18539 ALFARIS ALFARIS 4 4 [facility] DEPARTMEN T VISIT MODERATE SEVERITY EMERGENCY 54554 ALFARIS ALFARIS 4 4 [facility] DEPARTMEN T VISIT MODERATE SEVERITY OFFICE 40905 RANDY RACHEL RANDY RACHEL OUTPATIEN 3 3 T VISIT 15 MINUTES OFFICE 73801 RANDY RACHEL RANDY RACHEL OUTPATIEN 3 3 T VISIT 15 MINUTES EMERGENCY 17394 ANTONIO ANTONIO 3 3 [facility] DEPARTMEN T VISIT HIGH/URGE NT SEVERITY HOSPITAL [facility] - 3 3 [facility] OUTPATIEN INC T EMERGENCY 21187 ANTONIO ANTONIO 3 3 [facility] DEPARTMEN T VISIT HIGH/URGE NT SEVERITY OFFICE 50761 [facility] HARPEL OUTPATIEN 3 3 LÓPEZ LÓPEZ T VISIT 15 MINUTES OFFICE 99155 HARPEL HARPEL OUTPATIEN 3 3 LÓPEZ LÓPEZ T VISIT 15 MINUTES OFFICE 70973 HARPEL HARPEL OUTPATIEN 3 3 LÓPEZ LÓPEZ T VISIT 15 MINUTES OFFICE 96605 [facility] HARPEL OUTPATIEN 3 3 LÓPEZ LÓPEZ T VISIT 15 MINUTES Inpatient BHARGAV Carbajal MD (IN) 3 11:30 3 11:10 [facility] - 3 3 [facility] INPATIENT INC OFFICE 50430 HARPEL HARPEL OUTPATIEN 3 3 LÓPEZ LÓPEZ T VISIT 15 MINUTES OFFICE 20133 HARPE[facility] HARPEL OUTPATIEN 3 3 LÓPEZ LÓPEZ T VISIT 15 MINUTES OFFICE 46158 HARPE[facility] HARPEL OUTPATIEN 3 3 LÓPEZ LÓPEZ T VISIT 15 MINUTES Emergency JUANITA Israel MD (ER) 3 18:05 3 19:37 [facility] - 3 3 [facility] OUTPATIEN INC T EMERGENCY 78057 [facility] 3 3 [facility] DEPARTMEN INC T VISIT LOW/MODER SEVERITY EMERGENCY 68389 ABHIJIT VICKERS 3 3 EMERGENCY DEPARTMEN SERVICES T VISIT HIGH/URGE NT SEVERITY OFFICE 51676 [facility] OUTPATIEN 3 3 LÓPEZ LÓPEZ T VISIT 15 MINUTES HOSPITAL [facility] - 3 3 [facility] OUTPATIEN INC T OFFICE 61433 HARPEL HAR[facility]L OUTPATIEN 3 3 LÓPEZ LÓPEZ T VISIT 15 MINUTES HOSPITAL [facility] - 3 3 [facility] OUTPATIEN INC T OFFICE 61739 HARPEL [facility]PEL OUTPATIEN 3 3 LÓPEZ LÓPEZ T VISIT 15 MINUTES OFFICE 12004 HARPEL HARPEL OUTPATIEN 3 3 LÓPEZ LÓPEZ T VISIT 15 MINUTES HOSPITAL [facility] - 3 3 [facility] OUTPATIEN INC T OFFICE 34645 HARPEL HARPEL OUTPATIEN 3 3 LÓPEZ LÓPEZ T VISIT 15 MINUTES OFFICE 84172 [facility] OUT[facility] 3 3 [facility] T VISIT 15 MINUTES OFFICE 35018 HARPE[facility] HARPEL OUTPATIEN 3 3 LÓPEZ LÓPEZ T VISIT 15 MINUTES Emergency JUANITA WANG (ER) 3 21:12 3 22:13 [facility] EMERGENCY 49817 [facility] 3 3 [facility] DEPARTMEN [facility] T VISIT MODERATE SEVERITY EMERGENCY 13584 ABHIJIT FELIPE HART DEPT 3 3 EMERGENCY VISIT SERVICES HIGH SEVERITY& THREAT [facility] - 3 3 [facility]PATIEN [facility] - 3 3 [facility] OUTPATIEN INC T OFFICE 41326 HARPEL HARPEL OUTPATIEN 3 3 LÓPEZ LÓPEZ T VISIT 15 MINUTES OFFICE 70475 HARPEL HARPEL OUTPATIEN 3 3 LÓPEZ LÓPEZ T VISIT 15 MINUTES OFFICE 65433 HARPEL HARPEL OUTPATIEN 2 2 LÓPEZ LÓPEZ T VISIT 15 MINUTES EMERGENCY 03070 ANTONIO ALVAREZ DEPT 2 2 [facility] VISIT HIGH SEVERITY& THREAT [facility] EMERGENCY 67310 [facility] 2 2 [facility] T VISIT MODERATE SEVERITY HOSPITAL [facility] - 2 2 [facility] OUTPATIEN [facility] OFFICE 42894 HARPEL HARPEL OUTPATIEN 2 2 LÓPEZ LÓPEZ T VISIT 15 MINUTES HOSPITAL [facility] - 2 2 [facility] OUTPATIEN INC T PERIODIC 22465 HAR[facility] PREVENTIV 2 2 LÓPEZ E MED EST PATIENT 18-39 YRS OFFICE 68893 HARPE[facility] HARPEL OUTPATIEN 2 2 LÓPEZ LÓPEZ T VISIT 15 MINUTES OFFICE 36282 HARPEL HARPEL OUTPATIEN 2 2 LÓPEZ LÓPEZ T VISIT 15 MINUTES PERIODIC 14853 HARPEL PREVENTIV 2 2 LÓPEZ E MED EST PATIENT 18-39 YRS OFFICE 75437 A C LONG A OUTPATIEN 2 2 ETHAN DOE T NEW 45 PSC MINUTES OFFICE 37020 GIANCARLO CARBAJAL OUTPATIEN 1 1 ANURADHA DAWN T VISIT 15 MINUTES OFFICE 97206 GIANCARLO CARBAJAL OUTPATIEN 1 1 ANURADHA DAWN T VISIT 25 MINUTES HOSPITAL [facility] - 1 1 [facility] OUTPATIEN INC T OFFICE 90643 GIANCARLO CARBAJAL OUTPATIEN 1 1 ANURADHA DAWN T NEW 60 MINUTES HOSPITAL [facility] - 1 1 [facility] INC T [facility] - 1 1 [facility]PAT[facility] INC T [facility] - 1 1 [facility] OUTPAT[facility]EN INC [facility] - 1 1 [facility] OUTPATIEN INC T EMERGENCY 24246 [facility] 1 1 [facility] DEPARTMEN INC T VISIT HIGH/URGE NT SEVERITY OFFICE 31851 [facility] OUTPATIEN 1 [facility] CENTER 15 MINUTES [facility]OSP[facility] - 0 0 [facility] OUTPATIEN INC T EMERGENCY 19012 ABHIJIT BARCLAY 0 0 EMERGENCY III, DEPARTMEN SERVICES DOREEN T VISIT HIGH/URGE ASSOCIATE NT S SEVERITY EMERGENCY 27225 [facility] 0 0 [facility] DEPARTMEN INC T VISIT MODERATE SEVERITY [facility] - 0 0 [facility] OUTPATIEN [facility] T EMERGENCY 80936 ABHIJIT ALVAREZ, 0 0 EMERGENCY ISABELA S DEPARTMEN SERVICES T VISIT MODERATE ASSOCIATE SEVERITY S EMERGENCY 25019 [facility] 0 0 [facility] DEPARTMEN INC T VISIT LOW/MODER SEVERITY [facility] - 0 0 [facility] T [facility] - 0 0 [facility] OUTPATIEN [facility] T HOSPITAL [facility] - 0 0 [facility] INC T OFFICE 22993 [facility] V[facility] C[facility] CENTER 15 MINUTES [facility] - 9 9 [facility] - 9 9 [facility] OUTPATIEN INC T EMERGENCY 88560 [facility] 9 9 [facility] VISIT MODERATE SEVERITY
--- OUTSIDE RECORDS SUMMARY | 2016-10-18 23:32 | External Medical Summary Rpt ---
Author Author , Organization [employer] Address Unknown Phone Unavailable Care Team Providers Care Front Desk Worker Name Role Phone A Mariama LONG MD PSC, A Unavailable Unavailable Mariama LONG MD PSC ALFARIS MOH, ALFARIS Unavailable Unavailable MOH ALFARIS MOH, ALFARIS Unavailable Unavailable MOH Casey Israel MD, Unavailable Unavailable Casey DOE, GOLDY DOE Unavailable Unavailable [facility] Unavailable Unavailable [facility]ORATORIES, [facility] Unavailable Unavailable [facility]ATORIES, [facility] Unavailable Unavailable SERVICE, [facility] Unavailable Unavailable SERVICE, [facility] [place] [facility], [place] [...] LÓPEZ HARPEYvon LÓPEZ, HARPEL Unavailable Unavailable LÓPEZ [facility] Unavailable Unavailable CENTER, [facility] Unavailable Unavailable CENTER, [facility] Unavailable Unavailable INC, [facility] Un[facility], [facility] W[facility], Unavailable Unavailable O[facility] W[facility] Unavailable Unavailable SERVICES, [facility] RANDY RACHEL, RANDY RACHEL Unavailable Unavailable RANDY RACHEL, RANDY RACHEL Unavailable Unavailable [facility] Unavailable Unavailable LAB, [facility] Unavailable Unavailable LAB, [id number], Unavailable Unavailable [id number] CHRISTEN PRESCOTT, CHRISTEN PRESCOTT Unavailable Unavailable CHRISTEN PRESCOTT, CHRISTEN PRESCOTT Unavailable Unavailable SOKAN BAB, SOKAN BAB Unavailable Unavailable [facility] Unavailable Unavailable #591, [facility] DOREEN BARCLAY III, Unavailable Unavailable [...] AND 01-20-2013 RANDY RACHEL STRAIN OF RIBS 34876 OTHER ACUTE 01-15-2013 [facility] PAIN V2509 OT GENERAL 11-22-2012 HARPEL LÓPEZ CNSL&ADVICE CONTRACEPT MANAGEMENT V242 ROUTINE 11-15-2012 HARPEL LÓPEZ FOLLOW-UP 25078 SEVERE 10-13-2012 HARPEL LÓPEZ PRE-ECLAMPS IA, WITH DELIVERY 96200 ABNORM 10-13-2012 HARPEL LÓPEZ HEART RATE/RHYTHM ANTPRTM COND/COMP 38476 C/S DELIV 10-13-2012 HARPEL LÓPEZ W/O INDICAT DELIV W/WO ANTPRTM COND V270 OUTCOME OF 10-13-2012 HARPEL LÓPEZ DELIVERY SINGLE LIVEBORN 67470 MILD OR 10-11-2012 CHRISTEN PRESCOTT UNSPECIFIED PRE-ECLAMPS IA WITH DELIVERY 31468 ABN FETL 10-11-2012 CHRISTEN PRESCOTT HRT RATE/RHYTHM DELIV W/WO ANTPRTM COND 52288 UNSPEC 10-08-2012 HARPEL LÓPEZ HYPERTENSIO N COND/COMPL 97688 OTHER 10-08-2012 [facility] SPECIFED [place] COMPLICATIO N ANTEPARTUM V221 SUPERVISION 10-08-2012 HARPEL LÓPEZ OF OTHER NORMAL 80853 OTH CURRENT 09-17-2012 ABHIJIT COLBERT EMERGENCY CLASSIFIABL SERVICES E ELSW ANTPRTM 7245 UNSPECIFIED 09-17-2012 [facility] 789.67 789.67 09-17-2012 Denilson ABDOMINAL [facility] TENDERNESS, Hospital GENERALIZED 30550 ABDOMINAL 09-17-2012 DENILSON TENDERNESS, [facility] GENERALIZED 81344 HEAD 09-17-2012 [facility] INJURY, AMBULANCE UNSPECIFIED SERVICE E849.8 E849.8 09-17-2012 Denilson ACCIDENT IN [facility] Hospital E880.9 E880.9 FALL 09-17-2012 Denilson ON [facility] STAIR/STEP Hospital [facility] E8809 ACCIDENTAL 09-17-2012 ABHIJIT FALL ON OR EMERGENCY FROM OTHER SERVICES STAIRS OR STEPS E8889 UNSPECIFIED 09-17-2012 [facility] FALL [place] V22.2 V22.2 PREG 09-17-2012 [facility] Hospital V222 09-17-2012 [facility] INCIDENTAL [facility] V286 SCREENING 09-13-2012 [facility] US B 5990 URINARY 08-30-2012 [facility] [place] TRACT [facility] INFECTION INC SITE NOT SPECIFIED 03909 THREATENED 08-30-2012 KIAN VEL PREMATURE LABOR ANTEPARTUM 44474 UNSPECIFIED 07-29-2012 HARPEL LÓPEZ VAGINITIS AND VULVOVAGINI TIS V771 SCREENING 07-18-2012 DENILSON FOR [facility] DIABETES INC MELLITUS 54047 DECR 06-19-2012 KIAN VEL MOVMNTS MGMT MOTH ANTPRTM COND/COMP 558.9 558.9 06-09-2012 [facility] IT NEC 5589 OTH&UNSPEC 06-09-2012 [facility] NONINFECTIO EMERGENCY US SERVICES GASTROENTER ITIS&COLITI S 82928 OTH CURRENT 06-09-2012 [facility] MATERNAL EMERGENCY CCE-COMPL SERVICES PG CB/PP-UNS EOC V2889 OTHER 05-23-2012 [facility] SPECIFIED [facility] SCREENING 69960 UNSPEC 03-25-2012 HARPEL LÓPEZ HEMORRHAGE EARLY ANTEPARTUM 91069 THREATENED 03-16-2012 DENILSON , [facility] ANTEPARTUM INC 93415 UNSPEC 03-16-2012 ANTONIO MARIPOSA HEMORR EARLY PG UNSPEC EPIS CARE 6268 OTH D/O 03-09-2012 [facility] MENSTRUATIO [facility] N&OTH ABN INC BLEED FE GNT TRACT V2881 ENCOUNTER 03-01-2012 HARPEL LÓPEZ FOR ANATOMIC SURVEY V704 EXAMINATION 03-01-2012 HARPEL LÓPEZ FOR MEDICOLEGAL REASON 78962 TRICHOMONAL 08-28-2011 HARPEL LÓPEZ VULVOVAGINI TIS V745 SCREENING 08-17-2011 HARPEL LÓPEZ EXAMINATION FOR VENEREAL DISEASE 6262 EXCESSIVE 08-07-2011 HARPEL LÓPEZ OR FREQUENT MENSTRUATIO N 7840 HEADACHE 05-24-2011 Lori LONG MD [facility] 7614 FETUS/NEWBO 03-03-2011 GIANCARLO Love RN AFFECTED ANURADHA DOE ECTOPIC MOTHER V2502 GENERAL 03-03-2011 GIANCARLO Love CNSL ANURADHA DOE INITIATION OT CONTRACEPT MEASURES 6202 OTHER AND 02-17-2011 GIANCARLO Love UNSPECIFIED ANURADHA DOE OVARIAN CYST 36730 TUBAL 02-17-2011 PATHOLOGY & CYTOLOGY WITHOUT LAB INTRAUTERIN E 08163 UNSPEC 02-16-2011 [place] [facility] WITHOUT IMAGING ASS INTRAUTERIN E PG 632 MISSED 02-11-2011 [place] [place] [facility] V7242 02-08-2011 [facility] EXAMINATION HEALTH OR TEST CENTER POSITIVE RESULT 6269 UNS D/O 05-31-2009 ABHIJIT MENSTRUATIO EMERGENCY N&OTH ABN SERVICES BLEED FE ASSOCIATES GNT TRACT 33926 UNSPECIFIED 05-21-2009 [place] DENTAL [facility] CARIES INC 5259 UNSPECIFIED 05-21-2009 ABHIJIT DISORDER EMERGENCY TEETH&SUPPO SERVICES [facility] STRUCTURES 6238 OTHER 04-27-2009 [place] SPECIFIED MEDICAL NONINFLAMMA IMAGING TORY [facility]OC[facility] DISORDER [...] Procedure DOS Code Location Performer Comment URINLS 88668 HARPEL HARPEL DIP 4 LÓPEZ LÓPEZ STICK/TAB LET REAGNT NON-AUTO MICRSCPY IADNA 53468 BIO BIO CHLAMYDIA 4 REFERNCE REFERNCE LABORATOR LABORATOR TRACHOMAT IES IES IS AMPLIFIED PROBE TQ CULTURE 92429 HARPEL HARPEL CHLAMYDIA 4 LÓPEZ LÓPEZ ANY SOURCE CYTP C/V 52101 BIO BIO AUTO THIN 4 REFERNCE REFERNCE LYR LABORATOR LABORATOR PREPJ SCR IES IES MNL RESCR PHYS IADNA 17803 HARPEL HARPEL NEISSERIA 4 LÓPEZ LÓPEZ GONORRHOE AE DIRECT PROBE TQ IADNA 27131 BIO BIO NEISSERIA 4 REFERNCE REFERNCE LABORATOR LABORATOR GONORRHOE IES IES AE AMPLIFIED PROBE TQ IADNA NOS 48085 BIO BIO 4 REFERNCE REFERNCE 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 PROBE TQ IES IES EACH ORGANISM IADNA 51996 BIO BIO TRICHOMON 4 REFERNCE REFERNCE LABORATOR LABORATOR VAGINALIS IES IES AMPLIFIED PROBE TECH INCISION 71055 ALFARIS ALFARIS & 4 MOH MOH DRAINAGE ABSCESS COMPLICAT ED/MULTIP LE INCISION 79801 ANTONIO ANTONIO & 3 MARIPOSA MARIPOSA DRAINAGE ABSCESS COMPLICAT ED/MULTIP LE CUL BACT 37008 DENILSON OREILLY XCPT 3 [facility] URINE INC INC BLOOD/STO OL AEROBIC ISOL SMR PRIM 59568 HARPEL [employer] [facility] [facility] CLINICPE[facility] SRC WET 3 LÓPEZ LÓPEZ [place] NFCT AGT URINE 55545 HARPEL [employer] [facility] [facility] CLINICPEL 3 LÓPEZ LÓPEZ TEST VISUAL COLOR CMPRSN METHS ETONOGEST J7307 [employer] [facility] [facility] CLINICPEL [employer] [facility] [facility] CLINICPEL REL 3 LÓPEZ LÓPEZ CNTRACPT IMPL SYS INCL IMPL & SPL INSJ 75094 [facility] NON-BIODE 3 LÓPEZ LÓPEZ GRADABLE DRUG DELIVERY IMPLANT CYTP C/V 56835 BIO BIO AUTO THIN 3 REFERNCE REFERNCE LYR LABORATOR LABORATOR PREPJ SCR IES IES MNL RESCR [facility] 99970 [facility] DISCHARGE 3 LÓPEZ LÓPEZ DAY MANAGEMEN T 30 MIN/< SBSQ 56572 [facility] 3 LÓPEZ LÓPEZ CARE/DAY 15 MINUTES LOW 741 DENILSON OREILLY CERVICAL 3 [facility]OS[facility] INC INC SECTION 14247 [facility] DELIVERY 3 LÓPEZ LÓPEZ ONLY ANESTHESI 42442 [facility]RISTEN VELÁSQUEZ SHA A 3 DELIVERY ONLY SBSQ 19280 [facility] 3 LÓPEZ LÓPEZ CARE/DAY 15 MINUTES SBSQ 54613 [facility] 3 LÓPEZ LÓPEZ CARE/DAY 15 MINUTES US PREG 85372 [facility] UTERUS 3 [place] [facility] REAL TIME F/U TRNSABDL PER FETUS 13237 [facility] BIOPHYSIC 3 LÓPEZ LÓPEZ AL PROFILE NON-STRES S TESTING 39219 [facility] BIOPHYSIC 3 [place] AL PROFILE NON-STRES S TESTING US PELVIC 49180 [facility] OREILLY 3 [facility] NONOBSTET INC INC RODRIGUEZ REAL-TIME IMAGE COMPLETE GROUND A0425 [facility] MILEAGE 3 AMBULANCE AMBULANCE PER SERVICE SERVICE STATUTE MILE AMBULANCE A0429 [facility] SERVICE 3 AMBULANCE AMBULANCE BLS SERVICE SERVICE EMERGENCY TRANSPORT PARTICLE 63941 DEN[facility] OREILLY AGGLUTINA 3 [facility] TION INC INC SCREEN EACH ANTIBODY CUL 99013 HARPEL HARPEL PRSMPTV 3 LÓPEZ LÓPEZ PTHGNC ORGANISM SCRN W/COLONY ESTIMJ 18311 [facility]IAN [place] NONSTRESS 3 VEL VEL TEST URNLS DIP 98508 [facility] OREILLY 3 [facility] STICK/TAB INC INC LET REAGENT AUTO MICROSCOP Y FTL 24664 [facility] OREILLY FIBRONECT 3 [facility] IN INC INC CERVICOVA G SECRETION S SEMI-DARWIN SMR PRIM 04969 HARPEL HARPEL SRC WET 3 LÓPEZ LÓPEZ [place] NFCT AGT GLUCOSE 78094 [facility] OREILLY POST 3 [facility] GLUCOSE INC INC DOSE BLOOD 60794 [facility] OREILLY COUNT 3 [facility] COMPLETE INC INC AUTO&AUTO DIFRNTL WBC SMR PRIM 95397 HARPEL HARPEL SRC WET 3 LÓPEZ LÓPEZ MOUNT NFCT AGT 46184 [facility] [place] NONSTRESS 3 VEL VEL TEST US PREG 60652 HARPEL HARPEL UTERUS 3 LÓPEZ LÓPEZ AFTER 1ST TRIMEST GESTATION IAADI 86052 [facility] OREILLY INFLUENZA 3 [facility] B VIRUS INC INC IAADI 50897 [facility] OREILLY INFFLUENZ 3 [facility] A A VIRUS INC INC ONDANSETR Q0162 [facility] OREILLY ON 1 MG 3 [facility] ORL NOT INC [place]CE[place] [address] [place] [address] ABIHJIT HART 3 EMERGENCY UTERUS SERVICES LIMITED 1/> FETUSES URNLS DIP 56721 [facility] OREILLY 3 [facility] STICK/TAB INC INC [place] [address] DEN[facility] OREILLY ESTRIOL 3 [facility] INC INC ALPHA-FET 22792 [facility] OREILLY OPROTEIN 3 [facility] SERUM INC INC GONADOTRO 13551 [facility] OREILLY PIN 3 [facility] CHORIONIC INC INC QUANTITAT ANT US PREG 69633 HARPEL HARPEL UTERUS 2 LÓPEZ LÓPEZ REAL TIME W/[place] [address] DEN[facility] OREILLY TRANSVAGI 2 [facility] NAL INC INC URNLS DIP 79133 [facility] OREILLY 2 [facility] STICK/TAB INC [place] [address] HARPEL HARPEL 2 LÓPEZ LÓPEZ UTERUS LIMITED 1/> FETUSES GONADOTRO 05320 DEN[facility] OREILLY PIN 2 [facility] CHORIONIC INC INC QUANTITAT ANT URINLS 33272 HARPEL HARPEL DIP 2 LÓPEZ LÓPEZ STICK/TAB LET REAGNT NON-AUTO MICRSCPY CULTURE 51172 HARPEL HARPEL CHLAMYDIA 2 LÓPEZ LÓPEZ ANY SOURCE IADNA 53868 HARPEL HARPEL HERPES 2 LÓPEZ LÓPEZ SIMPLX VIRUS DIRECT PROBE TQ IADNA 16085 HARPEL HARPEL NEISSERIA 2 LÓPEZ LÓPEZ GONORRHOE AE DIRECT PROBE TQ IAADIADOO 90946 HARPEL HARPEL 2 LÓPEZ LÓPEZ TRICHOMON VAGINALIS IAADIADOO 37068 HARPEL HARPEL 2 LÓPEZ LÓPEZ TRICHOMON VAGINALIS IADNA NOS 57820 BIO BIO 2 REFERNCE REFERNCE 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 PROBE TQ IES IES EACH ORGANISM IADNA 04505 HARPEL HARPEL HERPES 2 LÓPEZ LÓPEZ SIMPLX VIRUS DIRECT PROBE TQ CULTURE 06619 HARPEL HARPEL CHLAMYDIA 2 LÓPEZ LÓPEZ ANY SOURCE URINLS 83086 HARPEL HARPEL DIP 2 LÓPEZ LÓPEZ STICK/TAB LET REAGNT NON-AUTO MICRSCPY IADNA 05170 HARPEL HARPEL NEISSERIA 2 LÓPEZ LÓPEZ GONORRHOE AE DIRECT PROBE TQ URINE 09576 GIANCARLO R HARPEL 1 ANURADHA DOE LÓPEZ TEST [place]ISUAL [place] [address] PATHOLOGY WINSLOW JAM SURG 1 & PATHOLOGY CYTOLOGY LAB GROSS&MARIPOSA ROSCOPIC EXAM LAPAROSCO 12549 GIANCARLO CARBAJAL PY 1 ANURADHA DAWN SALPINGOS NAYLA LAPS SURG 37344 GIANCARLO CARBAJAL W/ASPIR 1 ANURADHA DOE LÓPEZ CAVITY/CY ST SINGLE/MU LTIPLE GONADOTRO 88356 DEN[facility] OREILLY PIN 1 [facility] CHORIONIC INC INC QUANTITAT ANT US PREG 34864 DEN[facility] OREILLY UTERUS 1 [facility] REAL TIME INC INC W/IMAGE DCMTN TRANSVAG BLOOD 49547 [facility] ORE[facility] TYPING 1 [facility] SEROLOGIC INC INC RH (D) BLOOD 64659 [facility] OREILLY COUNT 1 [facility] COMPLETE INC INC AUTO&AUTO DIFRNTL WBC [place] PREG 82524 [facility] UTERUS 1 [facility]ALTH [facility]EL REAL TIME CLINIC OF W/IMAGE LINDA DCMTN TRANSVAG ANTIBODY 47068 [facility] OREILLY SCREEN 1 [facility] RBC EACH INC INC SERUM TECHNIQUE BLOOD 70143 [facility] OREILLY TYPING 1 [facility] SEROLOGIC INC INC ABO BASIC 84025 [facility] ORE[facility]Y METABOLIC 1 [facility] PANEL INC INC CALCIUM TOTAL GONADOTRO 41158 [facility] OREILLY PIN 1 [facility] CHORIONIC INC INC QUANTITAT ANT GONADOTRO 44406 [facility]IL[facility] OREILLY PIN 1 [facility] CHORIONIC INC INC QUANTITAT ANT GONADOTRO 21424 DEN[facility] OREILLY PIN 1 [facility] CHORIONIC INC INC QUANTITAT ANT URINE 00175 DEN[facility] OREILLY 1 [facility] CENTER VISUAL COLOR CMPRSN METHS BLOOD 57135 DEN[facility] OREILLY COUNT 1 [facility] COMPLETE INC INC AUTO&AUTO DIFRNTL WBC GONADOTRO 66138 DEN[facility] OREILLY PIN 0 [facility] CHORIONIC INC INC QUALITATI VE BLOOD 06082 DEN[facility] CHRISTIANSONON COUNT 0 [facility] COMPLETE INC INC AUTO&AUTO DIFRNTL WBC URINE 01771 [facility] OREILLY 0 [facility] TEST INC [place] V[place] [address] ARMIN DELGADOVAGI 0 MEDICAL СЕРГЕЙ NAL IMAGING ASSOCIATE S ASPIRATIO 6952 [facility] OREILLY N 0 [facility] CURETTAGE [place] FO[place]ING [place] [address] DENILSON OREILLY INFUSION 0 [facility] THERAPY/P INC INC ROPHYLAXI S /DX 1ST TO 1 [place] [address] [facility] OREILLY INFUSION 0 [facility] THERAPY INC INC PROPHYLAX IS/DX EA HOUR BLOOD 30226 [facility] OREILLY COUNT 0 [facility] COMPLETE INC INC AUTO&[place] [address] PATHOLOGY PATHOLOGY SURG 0 & & PATHOLOGY CYTOLOGY CYTOLOGY LAB LAB GROSS&MARIPOSA ROSCOPIC EXAM COMPREHEN 36834 [facility] ORE[facility]Y SIVE 0 [facility] METABOLIC INC INC PANEL GONADOTRO 45785 [facility] OREILLY PIN 0 [facility] CHORIONIC INC INC QUANTITAT ANT US PREG 68583 [facility], UTERUS 0 HEALTH MELA J REAL TIME CLINIC OF W/IMAGE DCMTN [facility] IADNA 70756 PATHOLOGY PATHOLOGY CHLAMYDIA 9 & & CYTOLOGY CYTOLOGY TRACHOMAT LAB LAB IS AMPLIFIED PROBE TQ CYTP C/V 71726 PATHOLOGY PATHOLOGY AUTO THIN 9 & & LYR CYTOLOGY CYTOLOGY PREPJ SCR LAB LAB MNL RESCR PHYS IADNA 34130 PATHOLOGY PATHOLOGY NEISSERIA 9 & & CYTOLOGY CYTOLOGY GONORRHOE LAB LAB AE AMPLIFIED PROBE TQ URINE 70746 [facility]ENTER VISUAL COLOR CMPRSN METHS GONADOTRO 55292 [facility] OREILLY PIN 9 [facility] CHORIONIC INC INC QUANTITAT ANT GONADOTRO 39222 [facility] OREILLY PIN 9 [facility] CHORIONIC INC INC QUANTITAT ANT BLOOD 02683 [facility] ORE[facility] TYPING 9 [facility] SEROLOGIC INC INC RH (D) BLOOD 25162 DEN[facility] OREILLY COUNT 9 [facility] COMPLETE INC INC AUTO&AUTO [place]NTL [place]BC [place] PREG 30824 DEN[facility]RISTIANSONON UTERUS 9 [facility] REAL TIME INC INC W/IMAGE DCMTN TRANSVAG Encounters Encounter Start End Date Code Location Performer Type Date PERIODIC 86151 HARPEL HARPEL PREVENTIV 4 4 LÓPEZ LÓPEZ E MED EST PATIENT 18-39 YRS EMERGENCY 06448 ALFARIS ALFARIS 4 4 [facility] DEPARTMEN T VISIT MODERATE SEVERITY EMERGENCY 80273 ALFARIS ALFARIS 4 4 [facility] DEPARTMEN T VISIT MODERATE SEVERITY OFFICE 62501 RANDY RACHEL RANDY RACHEL OUTPATIEN 3 3 T VISIT 15 MINUTES OFFICE 18805 RANDY RACHEL RANDY RACHEL OUTPATIEN 3 3 T VISIT 15 MINUTES EMERGENCY 89272 ANTONIO ANTONIO 3 3 [facility] MARIPOSA DEPARTMEN T VISIT HIGH/URGE NT SEVERITY HOSPITAL DENIL[facility] - 3 3 [facility] OUTPATIEN INC T EMERGENCY 03142 ANTONIO ANTONIO 3 3 MARIPOSA MARIPOSA DEPARTMEN T VISIT HIGH/URGE NT SEVERITY OFFICE 14394 HARPEL HARPEL OUTPATIEN 3 3 LÓPEZ LÓPEZ T VISIT 15 MINUTES OFFICE 22443 HARPEL HARPEL OUTPATIEN 3 3 LÓPEZ LÓPEZ T VISIT 15 MINUTES OFFICE 72325 HARPEL HARPEL OUTPATIEN 3 3 LÓPEZ LÓPEZ T VISIT 15 MINUTES OFFICE 25437 HARPEL HARPEL OUTPATIEN 3 3 LÓPEZ LÓPEZ T VISIT 15 MINUTES Inpatient BHARGAV Carbajal MD (IN) 3 11:30 3 11:10 [facility]ILSON - 3 3 [facility] INPATIENT INC OFFICE 44203 HARPEL HARPEL OUTPATIEN 3 3 LÓPEZ LÓPEZ T VISIT 15 MINUTES OFFICE 00313 HARPEL HARPEL OUTPATIEN 3 3 LÓPEZ LÓPEZ T VISIT 15 MINUTES OFFICE 30117 HARPEL HARPEL OUTPATIEN 3 3 LÓPEZ LÓPEZ T VISIT 15 MINUTES Emergency JUANITA Israel MD (ER) 3 18:05 3 19:37 [facility] DEN[facility]SON - 3 3 [facility] OUTPATIEN INC T EMERGENCY 01520 [facility] 3 3 [facility] DEPARTMEN INC T VISIT LOW/MODER SEVERITY EMERGENCY 81239 ABHIJIT VICKERS 3 3 EMERGENCY DEPARTMEN SERVICES T VISIT HIGH/URGE NT SEVERITY OFFICE 49674 HARPEL HARPEL OUTPATIEN 3 3 LÓPEZ LÓPEZ T VISIT 15 MINUTES HOSPITAL [facility] - 3 3 [facility] OUTPATIEN INC T OFFICE 82130 HARPEL HARPEL OUTPATIEN 3 3 LÓPEZ LÓPEZ T VISIT 15 MINUTES HOSPITAL [facility] - 3 3 [facility] OUTPATIEN INC T OFFICE 10507 HARPEL HARPEL OUTPATIEN 3 3 LÓPEZ LÓPEZ T VISIT 15 MINUTES OFFICE 00776 HARPEL HARPEL OUTPATIEN 3 3 LÓPEZ LÓPEZ T VISIT 15 MINUTES HOSPITAL [facility] - 3 3 [facility] OUTPATIEN INC T OFFICE 08649 HARPEL HARPEL OUTPATIEN 3 3 LÓPEZ LÓPEZ T VISIT 15 MINUTES OFFICE 08293 [facility] OUTPATIEN 3 3 VEL VEL T VISIT 15 MINUTES OFFICE 06483 HARPEL HARPEL OUTPATIEN 3 3 LÓPEZ LÓPEZ T VISIT 15 MINUTES Emergency JUANITA WANG (ER) 3 21:12 3 22:13 [facility] EMERGENCY 84736 [facility] 3 3 [facility] DEPARTMEN [facility] T VISIT MODERATE SEVERITY EMERGENCY 91663 ABHIJIT FELIPE HART DEPT 3 3 EMERGENCY VISIT SERVICES HIGH SEVERITY& THREAT [facility] DENILSON - 3 3 [facility] - 3 3 [facility] OUTPATIEN INC T OFFICE 01877 HARPEL HARPEL OUTPATIEN 3 3 LÓPEZ LÓPEZ T VISIT 15 MINUTES OFFICE 56734 HARPEL HARPEL OUTPATIEN 3 3 LÓPEZ LÓPEZ T VISIT 15 MINUTES OFFICE 13009 HARPEL HARPEL OUTPATIEN 2 2 LÓPEZ LÓPEZ T VISIT 15 MINUTES EMERGENCY 35556 ANTONIO ALVAREZ DEPT 2 2 MARIPOSA MARIPOSA VISIT HIGH SEVERITY& THREAT [facility] 85487 [facility] 2 2 [facility] T VISIT MODERATE SEVERITY HOSPITAL [facility] - 2 2 [facility]IEN [facility] OFFICE 98521 HARPEL HARPEL OUTPATIEN 2 2 LÓPEZ LÓPEZ T VISIT 15 MINUTES HOSPITAL [facility] - 2 2 [facility] OUTPATIEN INC T PERIODIC 67693 HARPEL PREVENTIV 2 2 LÓPEZ E MED EST PATIENT 18-39 YRS OFFICE 12370 HARPEL HARPEL OUTPATIEN 2 2 LÓPEZ LÓPEZ T VISIT 15 MINUTES OFFICE 25218 HARPEL HARPEL OUTPATIEN 2 2 LÓPEZ LÓPEZ T VISIT 15 MINUTES PERIODIC 26599 HARPEL PREVENTIV 2 2 LÓPEZ E MED EST PATIENT 18-39 YRS OFFICE 64463 A C LONG A OUTPATIEN 2 2 ETHAN DOE T NEW 45 PSC MINUTES OFFICE 88438 GIANCARLO CARBAJAL OUTPATIEN 1 1 ANURADHA DAWN T VISIT 15 MINUTES OFFICE 09090 GIANCARLO CARBAJAL OUTPATIEN 1 1 ANURADHA DAWN T VISIT 25 MINUTES HOSPITAL [facility] - 1 1 [facility] OUTPATIEN INC T OFFICE 76571 GIANCARLO CARBAJAL OUTPATIEN 1 1 ANURADHA DAWN T NEW 60 MINUTES HOSPITAL [facility] - 1 1 [facility] OUTPATIEN INC T HOSPITAL [facility] - 1 1 [facility] OUTPATIEN INC T HOSPITAL [facility] - 1 1 [facility] T EMERGENCY [id number] [facility] 1 1 [facility] DEPARTMEN INC T VISIT HIGH/URGE NT SEVERITY OFFICE [id number] [facility] OREILLY OUTPATIEN 1 1 [facility] T VISIT CENTER CENTER 15 MINUTES [facility] 0 [facility] T EMERGENCY [id number] ABHIJIT BARCLAY 0 0 EMERGENCY III, DEPARTMEN SERVICES DOREEN T VISIT HIGH/URGE ASSOCIATE NT S SEVERITY EMERGENCY 78214 [facility] 0 0 [facility] T VISIT MODERATE SEVERITY [facility] 0 [facility] T EMERGENCY 08825 ABHIJIT ALVAREZ, 0 0 EMERGENCY ISABELA S DEPARTMEN SERVICES T VISIT MODERATE ASSOCIATE SEVERITY S EMERGENCY [id number] [facility] 0 0 [facility] DE[facility] T VISIT LOW/MODER SEVERITY [facility] 0 [facility] T [facility] 0 [facility] T [facility]OSP[facility] - 0 0 [facility] T OFFICE [id number] [facility] 9 9 [facility] T VISIT CENTER CENTER 15 MINUT[facility] - 9 9 [facility] 9 9 [facility] T EMERGENCY [id number] [facility] 9 9 [facility] MODERATE SEVERITY
--- OUTSIDE RECORDS SUMMARY | 2016-10-18 23:35 | External Medical Summary Rpt ---
Author Author MARC Brennan, MARC Brennan Organization [employer] Address Unknown Phone Unavailable
--- OUTSIDE RECORDS SUMMARY | 2016-10-18 23:35 | External Medical Summary Rpt ---
Author Author , Organization [employer] Address Unknown Phone Unavailable Purpose Continuity of Care Document - 06-06-1995 through 2016 Immunization Name Date Route CVX Reacti Commen Provid Is Given on t er Refuse d Hep B, Histor H149 No 2003 ical ped/ad Inform ol ation - Source Unspec ified Hep B, Histor H149 No 2002 ical ped/ad Inform ol ation - Source Unspec ified Td Histor H149 No (adult 2002 ical ), Inform adsorb ation ed - Source Unspec ified Hep B, Histor H149 No 2002 ical ped/ad Inform ol ation - Source Unspec ified MMR Histor H149 No 1995 ical Inform ation - Source Unspec ified DTaP, Histor H149 No UF 1995 ical Inform ation - Source Unspec ified Polio- Histor H149 No OPV 1995 ical Inform ation - Source Unspec ified DTP Histor H149 No 1995 ical Inform ation - Source Unspec ified
--- OUTSIDE RECORDS SUMMARY | 2016-10-18 23:35 | External Medical Summary Rpt ---
Author Author , Organization [employer] Address Unknown Phone Unavailable Care Team Providers Care Customer Retention Representative Name Role Phone A Mariama LONG MD PSC, Lori Unavailable Unavailable Mariama LONG MD PSC ALFARIS MOH, ALFARIS Unavailable Unavailable MOH ALFARIS MOH, ALFARIS Unavailable Unavailable MOH WINSLOW JAM, WINSLOW JAM Unavailable Unavailable [facility] Unavailable Unavailable [facility], [facility] Unavailable Unavailable [facility]ATORIES, [facility] Unavailable Unavailable SERVICE, [facility] Unavailable Unavailable SERVICE, [facility] LANGSTON VEL, LANGSTON Unavailable Unavailable VEL LANGSTON VEL, LANGSTON Unavailable Unavailable VEL LANGSTON, MELA J, Unavailable Unavailable MELA LANGSTON J [facility], Unavailable Unavailable [facility], Unavailable Unavailable [facility], Unavailable Unavailable [facility], [facility] ANTONIO MARIPOSA, ANTONIO Unavailable Unavailable MARIPOSA ANTONIO MARIPOSA, ANTONIO Unavailable Unavailable MARIPOSA ISABELA ALVAREZ, Unavailable Unavailable ISABELA ALVAREZ MD, Unavailable Unavailable GIANCARLO LING MD HARPEL LÓPEZ, HARPEL Unavailable Unavailable LÓPEZ HARPEL LÓPEZ, HARPEL Unavailable Unavailable LÓPEZ [facility] Unavailable Unavailable CENTER, [facility] Unavailable Unavailable CENTER, [facility] Unavailable Unavailable INC, [facility] Unavailable Unavailable [facility], [facility] Unavailable Unavailable SERVICES, [facility] RANDY RACHEL, RANDY RACHEL Unavailable Unavailable RANDY RACHEL, RANDY RACHEL Unavailable Unavailable [facility] Unavailable Unavailable LAB, [facility] Unavailable Unavailable LAB, [id number], Unavailable Unavailable [id number] CHRISTEN STORM SHA Unavailable Unavailable CHRISTEN STORM SHA Unavailable Unavailable SOKAN BAB, SOKAN BAB Unavailable Unavailable [facility] Unavailable Unavailable #[facility], [facility] DOREEN BARCLAY III, Unavailable Unavailable DOREEN BARCLAY III, WELLS KIM Unavailable Unavailable LONG A, LONG A Unavailable Unavailable Purpose Continuity of Care [...] AND 01-20-2013 RANDY RACHEL STRAIN OF RIBS 39361 OTHER ACUTE 01-15-2013 [facility] PAIN V2509 OT GENERAL 11-22-2012 HARPEL LÓPEZ CNSL&ADVICE CONTRACEPT MANAGEMENT V242 ROUTINE 11-15-2012 HARPEL LÓPEZ FOLLOW-UP 88665 SEVERE 10-13-2012 HARPEL ÓLPEZ PRE-ECLAMPS IA, WITH DELIVERY 64802 ABNORM 10-13-2012 HARPEL LÓPEZ HEART RATE/RHYTHM ANTPRTM COND/COMP 01388 C/S DELIV 10-13-2012 HARPEL LÓPEZ W/O INDICAT DELIV W/WO ANTPRTM COND V270 OUTCOME OF 10-13-2012 HARPEL LÓPEZ DELIVERY SINGLE LIVEBORN 41459 MILD OR 10-11-2012 CHRISTEN PRESCOTT UNSPECIFIED PRE-ECLAMPS IA WITH DELIVERY 64334 ABN FETL 10-11-2012 CHRISTEN PRESCOTT HRT RATE/RHYTHM DELIV W/WO ANTPRTM COND 10441 UNSPEC 10-08-2012 HARPEL LÓPEZ HYPERTENSIO N COND/COMPL 86625 OTHER 10-08-2012 [facility] SPECIFED [place] COMPLICATIO N ANTEPARTUM V221 SUPERVISION 10-08-2012 HARPEL LÓPEZ OF OTHER NORMAL 97662 OT CURRENT 09-17-2012 [facility]HI[facility]IT COLBERT [facility] CLASSIFIABL SERVICES E ELSW ANTPRTM 7245 UNSPECIFIED 09-17-2012 ABHIJIT BACKACHE EMERGENCY SERVICES 55468 ABDOMINAL 09-17-2012 [facility] INC GENERALIZED 07233 HEAD 09-17-2012 [facility] INJURY, AMBULANCE UNSPECIFIED SERVICE E8809 ACCIDENTAL 09-17-2012 ABHIJIT FALL ON OR EMERGENCY FROM OTHER SERVICES STAIRS OR STEPS E8889 UNSPECIFIED 09-17-2012 [facility] FALL [place] V222 09-17-2012 [facility], [facility] INCIDENTAL INC V286 SCREENING 09-13-2012 [facility] OF [facility] STREPTOCOCC INC US B 5990 URINARY 08-30-2012 [facility] TRACT [facility] INFECTION INC SITE NOT SPECIFIED 77078 THREATENED 08-30-2012 [facility] PREMATURE LABOR ANTEPARTUM 00377 UNSPECIFIED 07-29-2012 HARPEL LÓPEZ VAGINITIS AND VULVOVAGINI TIS V771 SCREENING 07-18-2012 [facility] FOR [facility] DIABETES INC MELLITUS 66113 DECR 06-19-2012 [facility] VEL MOVMNTS MGMT MOTH ANTPRTM COND/COMP 5589 OTH&UNSPEC 06-09-2012 [facility] NONINFECTIO EM[facility]GENCY US SERVICES GASTROENTER ITIS&COLITI S 42053 OT CURRENT 06-09-2012 [facility] MATERNAL EMERGENCY CCE-COMPL SERVICES PG CB/PP-UNS EOC V2889 OTHER 05-23-2012 [facility] SPECIFIED [facility] INC SCREENING 42513 UNSPEC 03-25-2012 HARPEL LÓPEZ HEMORRHAGE EARLY ANTEPARTUM 80893 THREATENED 03-16-2012 [facility] , [facility] ANTEPARTUM INC 76630 UNSPEC 03-16-2012 ANTONIO MARIPOSA HEMORR EARLY PG UNSPEC EPIS CARE 6268 OT D/O 03-09-2012 [facility] MENSTRUATIO [facility] N&OTH ABN INC BLEED FE GNT TRACT V2881 ENCOUNTER 03-01-2012 HARPEL LÓPEZ FOR ANATOMIC SURVEY V704 EXAMINATION 03-01-2012 HARPEL LÓPEZ FOR MEDICOLEGAL REASON 97502 TRICHOMONAL 08-28-2011 HARPEL LÓPEZ VULVOVAGINI TIS V745 SCREENING 08-17-2011 HARPEL LÓPEZ EXAMINATION FOR VENEREAL DISEASE 6262 EXCESSIVE 08-07-2011 HARPEL LÓPEZ OR FREQUENT MENSTRUATIO N 7840 HEADACHE 05-24-2011 Lori LONG MD PSC 7614 FETUS/NEWBO 03-03-2011 GIANCARLO Love RN AFFECTED ANURADHA DOE ECTOPIC MOTHER V2502 GENERAL 03-03-2011 GIANCARLO Love CNSL ANURADHA DOE INITIATION OT CONTRACEPT MEASURES 6202 OTHER AND 02-17-2011 GIANCARLO Love UNSPECIFIED ANURADHA DOE OVARIAN CYST 62707 TUBAL 02-17-2011 PATHOLOGY & CYTOLOGY WITHOUT LAB INTRAUTERIN E 73480 UNSPEC 02-16-2011 [facility] WITHOUT IMAGING ASS INTRAUTERIN E PG 632 MISSED 02-11-2011 [facility] V7242 02-08-2011 [facility] CO EXAMINATION HEALTH OR TEST CENTER POSITIVE RESULT 6269 UNS D/O 05-31-2009 ABHIJIT MENSTRUATIO EMERGENCY N&OTH ABN SERVICES BLEED FE ASSOCIATES GNT TRACT 43111 UNSPECIFIED 05-21-2009 [facility] DENTAL [facility] CARIES INC 5259 UNSPECIFIED 05-21-2009 ABHIJIT DISORDER EMERGENCY TEETH&SUPPO SERVICES RTING ASSOCIATES STRUCTURES 6238 OTHER 04-27-2009 [place] SPECIFIED MEDICAL NONINFLAMMA IMAGING TORY ASSOCIATES DISORDER VAGINA Medications Na ND Rx Da Fi Fi Am Da Di Ph RX Ph St me C No te ll ll ou ys ag ar # ys at rm s nt no ma ic us Or Da si cy ia de te s n re d ME 00 02 02 00 10 10 [...] AR K MA J CY #5 91 Procedures Procedure DOS Code Location Performer Comment URINLS 89131 HARPEL HARPEL DIP 4 LÓPEZ LÓPEZ STICK/TAB LET REAGNT NON-AUTO MICRSCPY IADNA 10595 BIO BIO CHLAMYDIA 4 REFERNCE REFERNCE LABORATOR LABORATOR TRACHOMAT IES IES IS AMPLIFIED PROBE TQ IADNA 81018 BIO BIO TRICHOMON 4 REFERNCE REFERNCE LABORATOR LABORATOR VAGINALIS IES IES AMPLIFIED PROBE TECH IADNA 68582 HARPEL HARPEL NEISSERIA 4 LÓPEZ LÓPEZ GONORRHOE AE DIRECT PROBE TQ IADNA 32584 BIO BIO NEISSERIA 4 REFERNCE REFERNCE LABORATOR LABORATOR GONORRHOE IES IES AE AMPLIFIED PROBE TQ IADNA NOS 38591 BIO BIO 4 REFERNCE REFERNCE 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 PROBE TQ IES IES EACH ORGANISM CULTURE 43596 HARPEL HARPEL CHLAMYDIA 4 LÓPEZ LÓPEZ ANY SOURCE CYTP C/V 09952 BIO BIO AUTO THIN 4 REFERNCE REFERNCE LYR LABORATOR LABORATOR PREPJ SCR IES IES MNL RESCR PHYS INCISION 92023 ALFARIS ALFARIS & 4 MOH MOH DRAINAGE ABSCESS COMPLICAT ED/MULTIP LE INCISION 38092 [facility] OREILLY & 3 [facility] DRAINAGE INC INC ABSCESS COMPLICAT ED/MULTIP LE CUL BACT 11248 [facility] ORE[facility]Y XCPT 3 [facility] URINE INC INC BLOOD/STO OL AEROBIC ISOL SMR PRIM 90637 HARPEL HARPEL SRC WET 3 LÓPEZ LÓPEZ MOUNT NFCT AGT URINE 30266 HARPEL HARPEL 3 LÓPEZ LÓPEZ TEST VISUAL COLOR CMPRSN METHS INSJ 29853 HARPEL HARPEL NON-BIODE 3 LÓPEZ LÓPEZ GRADABLE DRUG DELIVERY IMPLANT ETONOGEST J7307 HARPEL HARPEL REL 3 LÓPEZ LÓPEZ CNTRACPT IMPL SYS INCL IMPL & SPL CYTP C/V 70092 BIO BIO AUTO THIN 3 REFERNCE REFERNCE LYR LABORATOR LABORATOR PREPJ SCR IES IES MNL RESCR [facility] 18124 HARPEL HARPEL DISCHARGE 3 LÓPEZ LÓPEZ DAY MANAGEMEN T 30 MIN/< SBSQ 63429 [facility] LÓPEZ LÓPEZ CARE/DAY 15 MINUTES 39278 HARPEL HARPEL DELIVERY 3 LÓPEZ LÓPEZ ONLY ANESTHESI 40267 CHRISTEN PRESCOTT A 3 DELIVERY ONLY LOW 741 [facility] OREILLY CERVICAL 3 [facility] INC INC SECTION SBSQ 12798 [facility] 3 LÓPEZ LÓPEZ CARE/DAY 15 MINUTES SBSQ 01452 [facility] 3 LÓPEZ LÓPEZ CARE/DAY 15 MINUTES US PREG 92752 [facility] UTERUS 3 [facility] REAL TIME F/U TRNSABDL PER FETUS 91194 HARPEL HARPEL BIOPHYSIC 3 LÓPEZ LÓPEZ AL PROFILE NON-STRES S TESTING 66678 [facility] BIOPHYSIC 3 [facility] [facility] AL PROFILE NON-STRES S TESTING US PELVIC 19127 [facility] OREILLY 3 [facility] NONOBSTET INC INC RODRIGUEZ REAL-TIME IMAGE COMPLETE GROUND A0425 [facility] 3 AMBULANCE AMBULANCE PER SERVICE SERVICE STATUTE MILE AMBULANCE A0429 [facility] SERVICE 3 AMBULANCE AMBULANCE BLS SERVICE SERVICE EMERGENCY TRANSPORT CUL 24538 HARPEL HARPEL PRSMPTV 3 LÓPEZ LÓPEZ PTHGNC ORGANISM SCRN W/COLONY ESTIMJ PARTICLE 72416 [facility] ORE[facility] AGGLUTINA 3 [facility] TION INC INC SCREEN EACH ANTIBODY 80956 KIAN [facility] NONSTRESS 3 VEL VEL TEST FTL 41566 [facility] FIBRONECT 3 [facility] IN INC INC CERVICOVA G SECRETION S SEMI-DARWIN URNLS DIP 45154 [facility] OREILLY 3 [facility] STICK/TAB INC INC LET REAGENT AUTO MICROSCOP Y SMR PRIM 54678 HARPEL HARPEL SRC WET 3 LÓPEZ LÓPEZ MOUNT NFCT AGT BLOOD 58893 [facility] COUNT 3 [facility] COMPLETE INC INC AUTO&AUTO DIFRNTL WBC GLUCOSE 04512 [facility] POST 3 [facility] GLUCOSE INC INC DOSE SMR PRIM 94848 HARPEL HARPEL SRC WET 3 LÓPEZ LÓPEZ MOUNT NFCT AGT 22420 KIAN [facility] NONSTRESS 3 VEL VEL TEST US PREG 57844 HARPEL HARPEL UTERUS 3 LÓPEZ LÓPEZ AFTER 1ST TRIMEST GESTATION IAADI 32720 [facility] ORE[facility] INFLUENZA 3 [facility] B VIRUS INC INC IAADI 22618 [facility] O[facility] INFFLUENZ 3 [facility] [place] [address] ABHIJIT HART 3 EMERGENCY UTERUS SERVICES LIMITED / FETUSES ONDANSETR Q0162 [facility] ON 1 MG 3 [facility] ORL NOT INC INC EXCEED 48 HR DOSE REG URNLS DIP 07640 [facility] OREILLY 3 [facility] STICK/TAB INC INC LET REAGENT AUTO MICROSCOP Y GONADOTRO 05850 [facility] PIN 3 [facility] [place] [address] [facility] ESTRIOL 3 [facility] INC INC ALPHA-FET 98712 [facility] OPROTEIN 3 [facility] [place]UM [place] PREG 28754 HARPEL HARPEL UTERUS 2 LÓPEZ LÓPEZ REAL TIME W/[place] [address] [facility] TRANSVAGI 2 [facility] NAL URNLS DIP 84345 [facility] OREILLY 2 [facility] STICK/TAB INC [place] [address] HARPEL HARPEL 2 LÓPEZ LÓPEZ UTERUS LIMITED /> FETUSES GONADOTRO 17374 [facility] PIN 2 [facility] CHORIONIC INC INC QUANTITAT ANT IADNA 82170 HARPEL HARPEL NEISSERIA 2 LÓPEZ LÓPEZ GONORRHOE AE DIRECT PROBE TQ CULTURE 74938 HARPEL HARPEL CHLAMYDIA 2 LÓPEZ LÓPEZ ANY SOURCE IAADIADOO 38739 HARPEL HARPEL 2 LÓPEZ LÓPEZ TRICHOMON VAGINALIS URINLS 15937 HARPEL HARPEL DIP 2 LÓPEZ LÓPEZ STICK/TAB LET REAGNT NON-AUTO MICRSCPY IADNA 74775 HARPEL HARPEL HERPES 2 LÓPEZ LÓPEZ SIMPLX VIRUS DIRECT PROBE TQ IAADIADOO 90175 HARPEL HARPEL 2 LÓPEZ LÓPEZ TRICHOMON VAGINALIS IADNA NOS 77160 BIO BIO 2 REFERNCE REFERNCE 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 PROBE TQ IES IES EACH ORGANISM IADNA 50916 HARPEL HARPEL HERPES 2 LÓPEZ LÓPEZ SIMPLX VIRUS DIRECT PROBE TQ URINLS 52373 HARPEL HARPEL DIP 2 LÓPEZ LÓPEZ STICK/TAB LET REAGNT NON-AUTO MICRSCPY IADNA 79416 HARPEL HARPEL NEISSERIA 2 LÓPEZ LÓPEZ GONORRHOE AE DIRECT PROBE TQ CULTURE 88283 HARPEL HARPEL CHLAMYDIA 2 LÓPEZ LÓPEZ ANY SOURCE URINE 84470 GIANCARLO DOMINGUEZPEL 1 ANURADHA DOE LÓPEZ TEST VIS[place] [address] PATHOLOGY WINSLOW JAM SURG 1 & PATHOLOGY CYTOLOGY LAB GROSS&MARIPOSA ROSCOPIC EXAM LAPS SURG 26938 GIANCARLO PFEIFFERL W/ASPIR 1 ANURADHA DAWN CAVITY/CY ST SINGLE/MU LTIPLE LAPAROSCO 61145 GIANCARLO LING PY 1 ANURADHA DOE LÓPEZ SALPINGOS NAYLA US PREG 68149 [place] [facility] UTERUS 1 MEDICAL [place] REAL TIME IMAGING W/IMAGE ASS DCMTN TRANSVAG GONADOTRO 49374 [facility] PIN 1 [facility] CHORIONIC INC INC QUANTITAT ANT US PREG 53490 [facility] UTERUS 1 HEALTH VEL REAL TIME CLINIC OF W/IMAGE LINDA DCMTN TRANSVAG BLOOD 70454 [facility] TYPING 1 [facility] SEROLOGIC INC INC RH (D) BASIC 50109 [facility] METABOLIC 1 [facility] PANEL INC INC CALCIUM TOTAL BLOOD 25557 [facility] COUNT 1 [facility] COMPLETE INC INC AUTO&AUTO DIFRNTL WBC ANTIBODY 56430 [facility] SCREEN 1 [facility] RBC EACH INC INC SERUM TECHNIQUE BLOOD 85111 [facility] ORE[facility] TYPING 1 [facility] SEROLOGIC INC INC ABO GONADOTRO 19559 [facility] OREILLY PIN 1 [facility] CHORIONIC INC INC QUANTITAT ANT GONADOTRO 33703 [facility] PIN 1 [facility] CHORIONIC INC INC QUANTITAT ANT GONADOTRO 66198 [facility] PIN 1 [facility] CHORIONIC INC INC QUANTITAT ANT BLOOD 31668 [facility] COUNT 1 [facility] COMPLETE INC INC AUTO&AUTO DIFRNTL WBC URINE 96011 [facility] OREILLY 1 [facility] CENTER VISUAL COLOR CMPRSN METHS GONADOTRO 07281 [facility] OREILLY PIN 0 [facility] CHORIONIC INC INC QUALITATI VE BLOOD 10123 [facility] OREILLY COUNT 0 [facility] COMPLETE INC INC AUTO&AUTO DIFRNTL WBC URINE 43563 DENILSONBOBBY OREILLY 0 [facility] TEST INC [place] V[place] [address] MEKA DELGADO 0 [facility]ICAL [facility] [place] [address] [facility] ORE[facility]Y INFUSION 0 [facility] THERAPY INC INC PROPHYLAX IS/DX EA HOUR BLOOD 71224 [facility] COUNT 0 [facility] COMPLETE INC INC AUTO&[place] [address] [facility] OREILLY INFUSION 0 [facility] THERAPY/P INC INC ROPHYLAXI S /DX 1ST TO 1 HR COMPREHEN 11943 [facility] ORE[facility] SIVE 0 [facility] METABOLIC INC INC PANEL ASPIRATIO 6952 [facility] ORE[facility] N 0 [facility] CURETTAGE INC INC FOLLOWING DELIVERY/ [place] [address] PATHOLOGY PATHOLOGY SURG 0 & & PATHOLOGY CYTOLOGY CYTOLOGY LAB LAB GROSS&MARIPOSA [place] EX[place] PREG 45980 [facility], UTERUS 0 HEALTH MELA J REAL TIME CLINIC OF W/IMAGE DCMTN [place] [facility] GONADOTRO 32761 [facility] OREILLY PIN 0 [facility] CHORIONIC INC INC QUANTITAT ANT IADNA 03502 PATHOLOGY PATHOLOGY CHLAMYDIA 9 & & CYTOLOGY CYTOLOGY TRACHOMAT LAB LAB IS AMPLIFIED PROBE TQ CYTP C/V 68629 PATHOLOGY PATHOLOGY AUTO THIN 9 & & LYR CYTOLOGY CYTOLOGY PREPJ SCR LAB LAB MNL RESCR PHYS IADNA 46409 PATHOLOGY PATHOLOGY NEISSERIA 9 & & CYTOLOGY CYTOLOGY GONORRHOE LAB LAB AE AMPLIFIED PROBE TQ URINE 87405 [facility] OREILLY 9 [facility] CENTER VISUAL COLOR CMPRSN METHS GONADOTRO 83545 [facility] OREILLY PIN 9 [facility] CHORIONIC INC INC QUANTITAT ANT GONADOTRO 03992 [facility] OREILLY PIN 9 [facility] CHORIONIC INC INC QUANTITAT ANT US PREG 90618 [facility] UTERUS 9 [facility] REAL TIME INC INC W/IMAGE DCMTN TRANSVAG BLOOD 87799 [facility] TYPING 9 [facility] SEROLOGIC INC INC RH (D) BLOOD 95413 [facility] COUNT 9 [facility] COMPLETE INC INC AUTO&AUTO DIFRNTL WBC Encounters Encounter Start End Date Code Location Performer Type Date PERIODIC 22600 HARPEL HARPEL PREVENTIV 4 4 LÓPEZ LÓPEZ E MED EST PATIENT 18-39 YRS EMERGENCY 80957 ALFARIS ALFARIS 4 4 [facility] DEPARTMEN T VISIT MODERATE SEVERITY EMERGENCY 90474 ALFARIS ALFARIS 4 4 [facility] DEPARTMEN T VISIT MODERATE SEVERITY OFFICE 01033 RANDY HENDERSONES RACHEL OUTPATIEN 3 3 T VISIT 15 MINUTES OFFICE 02436 RANDY HENDERSONES RACHEL OUTPATIEN 3 3 T VISIT 15 MINUTES EMERGENCY 97924 ANTONIO ALVAREZ 3 3 [facility] DEPARTMEN T VISIT HIGH/URGE NT SEVERITY EMERGENCY 69326 [facility] 3 3 [facility] DEPARTMEN INC T VISIT HIGH/URGE NT SEVERITY HOSPITAL [facility] - 3 3 [facility] OUTPATIEN INC T OFFICE 40635 HARPEL HARPEL OUTPATIEN 3 3 LÓPEZ LÓPEZ T VISIT 15 MINUTES OFFICE 79577 HARPEL HARPEL OUTPATIEN 3 3 LÓPEZ LÓPEZ T VISIT 15 MINUTES OFFICE 61730 HARPEL HARPEL OUTPATIEN 3 3 LÓPEZ LÓPEZ T VISIT 15 MINUTES OFFICE 20862 HARPEL HARPEL OUTPATIEN 3 3 LÓPEZ LÓPEZ T VISIT 15 MINUTES OFFICE 27263 HARPEL HARPEL OUTPATIEN 3 3 LÓPEZ LÓPEZ T VISIT 15 MINUTES HOSPITAL [facility] - 3 3 [facility] INPATIENT INC OFFICE 08210 HARPEL HARPEL OUTPATIEN 3 3 LÓPEZ LÓPEZ T VISIT 15 MINUTES OFFICE 25227 HARPEL HARPEL OUTPATIEN 3 3 LÓPEZ LÓPEZ T VISIT 15 MINUTES EMERGENCY 97849 ABHIJIT VICKERS 3 3 EMERGENCY DEPARTMEN SERVICES T VISIT HIGH/URGE NT SEVERITY EMERGENCY 44308 [facility] 3 3 [facility] DEPARTMEN INC T VISIT LOW/MODER SEVERITY HOSPITAL [facility] - 3 3 [facility] OUTPATIEN INC T [facility]OSPITAL [facility] - 3 3 [facility] OUTPATIEN INC T OFFICE 99935 HARPEL HARPEL OUTPATIEN 3 3 LÓPEZ LÓPEZ T VISIT 15 MINUTES OFFICE 80995 HARPEL HARPEL OUTPATIEN 3 3 LÓPEZ LÓPEZ T VISIT 15 MINUTES HOSPITAL [facility] - 3 3 [facility] OUTPATIEN INC T OFFICE 73886 HARPEL HARPEL OUTPATIEN 3 3 LÓPEZ LÓPEZ T VISIT 15 MINUTES OFFICE 51275 HARPEL HARPEL OUTPATIEN 3 3 LÓPEZ LÓPEZ T VISIT 15 MINUTES HOSPITAL [facility] - 3 3 [facility] OUTPATIEN INC T OFFICE 37276 HARPEL HARPEL OUTPATIEN 3 3 LÓPEZ LÓPEZ T VISIT 15 MINUTES OFFICE 03776 [facility] OUTPATIEN 3 3 VEL VEL T VISIT 15 MINUTES OFFICE 12833 HARPEL HARPEL OUTPATIEN 3 3 LÓPEZ LÓPEZ T VISIT 15 MINUTES HOSPITAL [facility] - 3 3 [facility] OUTPATIEN INC T EMERGENCY 28356 ABHIJIT HART DEPT 3 3 EMERGENCY VISIT SERVICES HIGH SEVERITY& THREAT FUN EMERGENCY 36671 [facility] 3 3 [facility] DEPARTMEN INC T VISIT MODERATE SEVERITY HOSPITAL [facility] - 3 3 [facility] OUTPATIEN INC T OFFICE 77336 HARPEL HARPEL OUTPATIEN 3 3 LÓPEZ LÓPEZ T VISIT 15 MINUTES OFFICE 14908 HARPEL HARPEL OUTPATIEN 3 3 LÓPEZ LÓPEZ T VISIT 15 MINUTES OFFICE 44405 HARPEL HARPEL OUTPATIEN 2 2 LÓPEZ LÓPEZ T VISIT 15 MINUTES EMERGENCY 26251 [facility] 2 2 [facility] DEPARTMEN INC T VISIT MODERATE SEVERITY HOSPITAL [facility] - 2 2 [facility] OUTPATIEN INC T EMERGENCY 39775 ANTONIO ALVAREZ DEPT 2 2 MARIPOSA MARIPOSA VISIT HIGH SEVERITY& THREAT [facility] OFFICE 38148 HARPEL HARPEL OUTPATIEN 2 2 LÓPEZ LÓPEZ T VISIT 15 MINUTES HOSPITAL [facility] - 2 2 [facility] OUTPATIEN INC T PERIODIC 37960 HARPEL PREVENTIV 2 2 LÓPEZ E MED EST PATIENT 18-39 YRS OFFICE 92732 HARPEL HARPEL OUTPATIEN 2 2 LÓPEZ LÓPEZ T VISIT 15 MINUTES OFFICE 74837 HARPEL HARPEL OUTPATIEN 2 2 LÓPEZ LÓPEZ T VISIT 15 MINUTES PERIODIC 67989 HARPEL PREVENTIV 2 2 LÓPEZ E MED EST PATIENT 18-39 YRS OFFICE 64966 A C ETHAN A OUTPATIEN 2 2 ETHAN DOE T NEW 45 PSC MINUTES OFFICE 05583 GIANCARLO Love HARPEL OUTPATIEN 1 1 ANURADHA DEO LÓPEZ T VISIT 15 MINUTES OFFICE 72282 GIANCARLO Love HARPEL OUTPATIEN 1 1 ANURADHA DOE LÓPEZ T VISIT 25 MINUTES HOSPITAL [facility] - 1 1 [facility] OUTPATIEN INC T OFFICE 83454 GIANCARLO R HARPEL OUTPATIEN 1 1 ANURADHA DOE LÓPEZ T NEW 60 MINUTES HOSPITAL [facility] - 1 1 [facility] OUTPATIEN [facility] T HOSP[facility] - 1 1 [facility] OUTPATIEN [facility] T HOSP[facility] - 1 1 [facility] OUTPATIEN INC T OFFICE 21387 [facility] OREILLY OUTPATIEN 1 1 [facility] T VISIT CENTER CENTER 15 MINUTES EMERGENCY [id number] [facility] 1 1 [facility] DEPARTMEN INC T VISIT HIGH/URGE NT SEVERITY [facility] T EMERGENCY [id number] [facility] 0 0 [facility] T VISIT MODERATE SEVERITY [facility] T EMERGENCY 47049 ABHIJIT BARCLAY 0 0 EMERGENCY III, DEPARTMEN SERVICES DORE[facility] T VISIT HIGH/URGE ASSOCIATE NT S SEVERITY EMERGENCY [id number] ABHIJIT ALVAREZ, 0 0 EMERGENCY [facility] T VISIT MODERATE ASSOCIATE SEVERITY [facility] - 0 0 [facility] T EMERGENCY [id number] [facility] 0 0 [facility] T VISIT [facility]OW/MODER SEVERITY [facility] - 0 0 [facility] - 0 0 [facility] 0 0 [facility] T OFFICE [id number] [facility] OREILLY OUTPAEN 9 9 [facility] 15 MINUTES [facility] - 9 9 [facility] - 9 9 [facility] T EMERGENCY [id number] [facility] 9 9 [facility] DEPART[facility] INC T VISIT MODERATE SEVERITY
--- OUTSIDE RECORDS SUMMARY | 2016-10-18 23:35 | External Medical Summary Rpt ---
Author Author , Organization [employer] Address Unknown Phone Unavailable Care Team Providers Care Mosaicist Name Role Phone A Mariama LONG MD PSC, Lori Unavailable Unavailable Mariama LONG MD PSC ALFARIS MOH, ALFARIS Unavailable Unavailable MOH ALFARIS MOH, ALFARIS Unavailable Unavailable MOH WINSLOW JAM, WINSLOW JAM Unavailable Unavailable [facility] Unavailable Unavailable [facility]ORATORIES, [facility] Unavailable Unavailable LABORATORIES, [facility] Unavailable Unavailable SERVICE, [facility] Unavailable Unavailable SERVICE, [facility] VEL, LANGSTON Unavailable Unavailable [...] LÓPEZ HARPEL LÓPEZ, HARPEL Unavailable Unavailable LÓPEZ [facility] Unavailable Unavailable CENTER, [facility] Unavailable Unavailable [facility]ENTER, [facility] Unavailable Unavailable INC, [facility] Unavailable Unavailable [facility], [facility] Unavailable Unavailable SERVICES, [facility] RANDY RACHEL, RANDY RACHEL Unavailable [...] AND 01-20-2013 RANDY RACHEL STRAIN OF RIBS 60627 OTHER ACUTE 01-15-2013 [facility] PAIN V2509 OT GENERAL 11-22-2012 HARPEL LÓPEZ CNSL&ADVICE CONTRACEPT MANAGEMENT V242 ROUTINE 11-15-2012 HARPEL LÓPEZ FOLLOW-UP 71842 SEVERE 10-13-2012 HARPEL LÓPEZ PRE-ECLAMPS IA, WITH DELIVERY 30018 ABNORM 10-13-2012 HARPEL LÓPEZ HEART RATE/RHYTHM ANTPRTM COND/COMP 54262 C/S DELIV 10-13-2012 HARPEL LÓPEZ W/O INDICAT DELIV W/WO ANTPRTM COND V270 OUTCOME OF 10-13-2012 HARPEL LÓPEZ DELIVERY SINGLE LIVEBORN 59256 MILD OR 10-11-2012 [facility] PRESCOTT UNSPECIFIED PRE-ECLAMPS IA WITH DELIVERY 82752 ABN FETL 10-11-2012 [facility]RISTEN PRESCOTT HRT RATE/RHYTHM DELIV W/WO ANTPRTM COND 10420 UNSPEC 10-08-2012 HARPEL LÓPEZ HYPERTENSIO N COND/COMPL 02121 OTHER 10-08-2012 [facility] SPECIFED [place] COMPLICATIO N ANTEPARTUM V221 SUPERVISION 10-08-2012 HARPEL LÓPEZ OF OTHER NORMAL 94562 OT CURRENT 09-17-2012 ABHIJIT COLBERT [facility] CLASSIFIABL SERVICES E ELSW ANTPRTM 7245 UNSPECIFIED 09-17-2012 ABHIJIT BACKACHE EMERG[facility]Y SERVICES 96089 ABDOMINAL 09-17-2012 [facility] GENERALIZED 12030 HEAD 09-17-2012 [facility] INJURY, AMBULANCE UNSPECIFIED SERVICE E8809 ACCIDENTAL 09-17-2012 ABHIJIT FALL ON OR EMERGENCY FROM OTHER SERVICES STAIRS OR STEPS E8889 UNSPECIFIED 09-17-2012 [facility] FALL [place] V222 09-17-2012 [facility] INCIDENTAL INC V286 SCREENING 09-13-2012 [facility] OF [facility] STREPTOCOCC INC US B 5990 URINARY 08-30-2012 [facility] TRACT [facility] INFECTION INC SITE NOT SPECIFIED 24726 THREATENED 08-30-2012 [facility] PRE[facility]URE LABOR ANTEPARTUM 07927 UNSPECIFIED 07-29-2012 HARPEL LÓPEZ VAGINITIS AND VULVOVAGINI TIS V771 SCREENING 07-18-2012 [facility] FOR [facility] DIABETES INC MELLITUS 83460 DECR 06-19-2012 [facility] MOVMNTS MGMT MOTH ANTPRTM COND/COMP 5589 OTH&UNSPEC 06-09-2012 [facility] NONINFECTIO EMERGENCY US SERVICES GASTROENTER ITIS&COLITI S 93598 OT CURRENT 06-09-2012 [facility] MATERNAL [facility]ERGENCY CCE-COMPL SERVICES PG CB/PP-UNS EOC V2889 OTHER 05-23-2012 [facility] SPECIFIED [facility] INC SCREENING 71766 UNSPEC 03-25-2012 HARPEL LÓPEZ HEMORRHAGE EARLY ANTEPARTUM 31123 THREATENED 03-16-2012 [facility] , [facility] ANTEPARTUM INC 90027 UNSPEC 03-16-2012 ANTONIO MARIPOSA HEMORR EARLY PG UNSPEC EPIS CARE 6268 OT D/O 03-09-2012 [facility] MENSTRUATIO [facility] N&OTH ABN INC BLEED FE GNT TRACT V2881 ENCOUNTER 03-01-2012 HARPEL LÓPEZ FOR ANATOMIC SURVEY V704 EXAMINATION 03-01-2012 HARPEL LÓPEZ FOR MEDICOLEGAL REASON 25253 TRICHOMONAL 08-28-2011 HARPEL LÓPEZ VULVOVAGINI TIS V745 SCREENING 08-17-2011 HARPEL LÓPEZ EXAMINATION FOR VENEREAL DISEASE 6262 EXCESSIVE 08-07-2011 HARPEL LÓPEZ OR FREQUENT MENSTRUATIO N 7840 HEADACHE 05-24-2011 Lori LONG MD PSC 7614 FETUS/NEWBO 03-03-2011 GIANCARLO Love RN AFFECTED ANURADHA DOE ECTOPIC MOTHER V2502 GENERAL 03-03-2011 GIANCARLO Love CNSL ANURADHA ODE INITIATION OT CONTRACEPT MEASURES 6202 OTHER AND 02-17-2011 GIANCARLO Love UNSPECIFIED ANURADHA DOE OVARIAN CYST 78505 TUBAL 02-17-2011 PATHOLOGY & CYTOLOGY WITHOUT LAB INTRAUTERIN E 59178 UNSPEC 02-16-2011 [facility]ICAL WITHOUT IMAGING ASS INTRAUTERIN E PG 632 MISSED 02-11-2011 [facility] V7242 02-08-2011 [facility] CO EXAMINATION HEALTH OR TEST CENTER POSITIVE RESULT 6269 UNS D/O 05-31-2009 ABHIJIT MENSTRUATIO EMERGENCY N&OTH ABN SERVICES BLEED FE ASSOCIATES GNT TRACT 19232 UNSPECIFIED 05-21-2009 [facility] DENTAL [facility] CARIES INC 5259 UNSPECIFIED 05-21-2009 ABHIJIT DISORDER EMERGENCY TEETH&SUPPO SERVICES RTING ASSOCIATES STRUCTURES 6238 OTHER 04-27-2009 [place] SPECIFIED MEDICAL NONINFLAMMA IMAGING TORY ASSOCIATES DISORDER [...] Procedure DOS Code Location Performer Comment URINLS 68335 HARPEL HARPEL DIP 4 LÓPEZ LÓPEZ STICK/TAB LET REAGNT NON-AUTO MICRSCPY IADNA 86878 BIO BIO CHLAMYDIA 4 REFERNCE REFERNCE LABORATOR LABORATOR TRACHOMAT IES IES IS AMPLIFIED PROBE TQ IADNA 30028 BIO BIO TRICHOMON 4 REFERNCE REFERNCE LABORATOR LABORATOR VAGINALIS IES IES AMPLIFIED PROBE TECH IADNA 43051 HARPEL HARPEL NEISSERIA 4 LÓPEZ LÓPEZ GONORRHOE AE DIRECT PROBE TQ IADNA 58821 BIO BIO NEISSERIA 4 REFERNCE REFERNCE LABORATOR LABORATOR GONORRHOE IES IES AE AMPLIFIED PROBE TQ IADNA NOS 60027 BIO BIO 4 REFERNCE REFERNCE 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 PROBE TQ IES IES EACH ORGANISM CULTURE 54343 HARPEL HARPEL CHLAMYDIA 4 LÓPEZ LÓPEZ ANY SOURCE CYTP C/V 76722 BIO BIO AUTO THIN 4 REFERNCE REFERNCE LYR LABORATOR LABORATOR PREPJ SCR IES IES MNL RESCR PHYS INCISION 46940 ALFARIS ALFARIS & 4 MOH MOH DRAINAGE ABSCESS COMPLICAT ED/MULTIP LE INCISION 95549 [facility] OREILLY & 3 [facility] DRAINAGE INC INC ABSCESS COMPLICAT ED/MULTIP LE CUL BACT 15245 [facility] OREILLY XCPT 3 [facility] URINE INC INC BLOOD/STO OL AEROBIC ISOL SMR PRIM 83773 HARPEL HARPEL SRC WET 3 LÓPEZ LÓPEZ MOUNT NFCT AGT URINE 12685 HARPEL HARPEL 3 LÓPEZ LÓPEZ TEST VISUAL COLOR CMPRSN METHS INSJ 35425 HARPEL HARPEL NON-BIODE 3 LÓPEZ LÓPEZ GRADABLE DRUG DELIVERY IMPLANT ETONOGEST J7307 HARPEL HARPEL REL 3 LÓPEZ LÓPEZ CNTRACPT IMPL SYS INCL IMPL & SPL CYTP C/V 11836 BIO BIO AUTO THIN 3 REFERNCE REFERNCE LYR LABORATOR LABORATOR PREPJ SCR IES IES MNL RESCR [facility] 47403 HARPEL HARPEL DISCHARGE 3 LÓPEZ LÓPEZ DAY MANAGEMEN T 30 MIN/< SBSQ 73110 [facility] LÓPEZ LÓPEZ CARE/DAY 15 MINUTES 78131 HARPEL HARPEL DELIVERY 3 LÓPEZ LÓPEZ ONLY ANESTHESI 01030 [facility] PRESCOTT A 3 DELIVERY ONLY LOW 741 [facility] ORE[facility]Y CERVICAL 3 [facility] INC INC SECTION SBSQ 76016 [facility] 3 LÓPEZ LÓPEZ CARE/DAY 15 MINUTES SBSQ 79542 [facility] 3 LÓPEZ LÓPEZ CARE/DAY 15 MINUTES US PREG 99725 [facility] UTERUS 3 [facility] REAL TIME F/U TRNSABDL PER FETUS 04822 HARPEL HARPEL BIOPHYSIC 3 LÓPEZ LÓPEZ AL PROFILE NON-STRES S TESTING 16391 [facility] BIOPHYSIC 3 [place] [facility] AL PROFILE NON-STRES S TESTING US PELVIC 91846 [facility] OREILLY 3 [facility] NONOBSTET INC INC RODRIGUEZ REAL-TIME IMAGE COMPLETE GROUND A0425 [facility] 3 AMBULANCE AMBULANCE PER SERVICE SERVICE STATUTE MILE AMBULANCE A0429 [facility] SERVICE 3 AMBULANCE AMBULANCE BLS SERVICE SERVICE EMERGENCY TRANSPORT CUL 22250 HARPEL HARPEL PRSMPTV 3 LÓPEZ LÓPEZ PTHGNC ORGANISM SCRN W/COLONY ESTIMJ PARTICLE 87232 [facility]RE[facility] AGGLUTINA 3 [facility] TION INC INC SCREEN EACH ANTIBODY 96384 KIAN [facility] NONSTRESS 3 VEL VEL TEST FTL 99354 [facility] ORE[facility] FIBRONECT 3 [facility] IN INC INC CERVICOVA G SECRETION S SEMI-DARWIN URNLS DIP 91214 [facility] OREILLY 3 [facility] STICK/TAB INC INC LET REAGENT AUTO MICROSCOP Y SMR PRIM 61387 HARPEL HARPEL SRC WET 3 ÓLPEZ LÓPEZ MOUNT NFCT AGT BLOOD 47610 [facility] COUNT 3 [facility] COMPLETE INC INC AUTO&AUTO DIFRNTL WBC GLUCOSE 26233 [facility] POST 3 [facility] GLUCOSE INC INC DOSE SMR PRIM 35461 HARPEL HARPEL SRC WET 3 LÓPEZ LÓPEZ MOUNT NFCT AGT 66579 K[facility] NONSTRESS 3 VEL VEL TEST US PREG 91990 HARPEL HARPEL UTERUS 3 LÓPEZ LÓPEZ AFTER 1ST TRIMEST GESTATION IAADI 90297 [facility] INFLUENZA 3 [facility] B VIRUS INC INC IAADI 36743 [facility] O[facility] INFFLUENZ 3 [facility] [place] [address] ABHIJIT HART 3 EMERGENCY UTERUS SERVICES LIMITED / FETUSES ONDANSETR Q0162 [facility] ON 1 MG 3 [facility] ORL NOT INC INC EXCEED 48 HR DOSE REG URNLS DIP 62546 [facility] ORE[facility]Y 3 [facility] STICK/TAB INC INC LET REAGENT AUTO MICROSCOP Y GONADOTRO 90503 [facility] PIN 3 [facility] [place]ION[place] [address] [facility] O[facility] ESTRIOL 3 [facility] INC INC ALPHA-FET 32908 [facility] OPROTEIN 3 [facility] SERUM INC INC [place] PREG 22243 HARPEL HARPEL UTERUS 2 LÓPEZ LÓPEZ REAL TIME W/[place] [address] [facility] TRANSVAGI 2 [facility] NAL URNLS DIP 23293 [facility] OREILLY 2 [facility] STICK/TAB INC [place] [address] HARPEL HARPEL 2 LÓPEZ LÓPEZ UTERUS LIMITED /> FETUSES GONADOTRO 79429 [facility] PIN 2 [facility] CHORIONIC INC INC QUANTITAT ANT IADNA 92100 HARPEL HARPEL NEISSERIA 2 LÓPEZ LÓPEZ GONORRHOE AE DIRECT PROBE TQ CULTURE 94445 HARPEL HARPEL CHLAMYDIA 2 LÓPEZ LÓPEZ ANY SOURCE IAADIADOO 42883 HARPEL HARPEL 2 LÓPEZ LÓPEZ TRICHOMON VAGINALIS URINLS 06350 HARPEL HARPEL DIP 2 LÓPEZ LÓPEZ STICK/TAB LET REAGNT NON-AUTO MICRSCPY IADNA 22877 HARPEL HARPEL HERPES 2 LÓPEZ LÓPEZ SIMPLX VIRUS DIRECT PROBE TQ IAADIADOO 67539 HARPEL HARPEL 2 LÓPEZ LÓPEZ TRICHOMON VAGINALIS IADNA NOS 59961 BIO BIO 2 REFERNCE REFERNCE 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 PROBE TQ IES IES EACH ORGANISM IADNA 47756 HARPEL HARPEL HERPES 2 LÓPEZ LÓPEZ SIMPLX VIRUS DIRECT PROBE TQ URINLS 02272 HARPEL HARPEL DIP 2 LÓPEZ LÓPEZ STICK/TAB LET REAGNT NON-AUTO MICRSCPY IADNA 56526 HARPEL HARPEL NEISSERIA 2 LÓPEZ LÓPEZ GONORRHOE AE DIRECT PROBE TQ CULTURE 00821 HARPEL HARPEL CHLAMYDIA 2 LÓPEZ LÓPEZ ANY SOURCE URINE 18139 GIANCARLO DOMINGUEZPEL 1 ANURADHA DOE LÓPEZ TEST VISUAL [place] [address] PATHOLOGY WINSLOW JAM SURG 1 & PATHOLOGY CYTOLOGY LAB GROSS&MARIPOSA ROSCOPIC EXAM LAPS SURG 20103 GIANCARLO PFEIFFERL W/ASPIR 1 ANURADHA DAWN CAVITY/CY ST SINGLE/MU LTIPLE LAPAROSCO 27608 GIANCARLO LING PY 1 ANURADHA DOE LÓPEZ SALPINGOS NAYLA US PREG 84543 [place] [facility] UTERUS 1 MEDICAL [place] REAL TIME IMAGING W/IMAGE ASS DCMTN TRANSVAG GONADOTRO 30369 [facility] PIN 1 [facility] CHORIONIC INC [place]N [place] PREG 03208 [facility] UTERUS 1 HEALTH VEL REAL TIME CLINIC OF W/IMAGE LINDA DCMTN TRANSVAG BLOOD 43751 [facility] TYPING 1 [facility] SEROLOGIC INC INC RH (D) BASIC 55054 [facility] METABOLIC 1 [facility] PANEL INC INC CALCIUM TOTAL BLOOD 40609 [facility] COUNT 1 [facility] COMPLETE INC INC AUTO&AUTO DIFRNTL WBC ANTIBODY 08307 [facility] SCREEN 1 [facility] RBC EACH INC INC SERUM TECHNIQUE BLOOD 30527 [facility] ORE[facility]Y TYPING 1 [facility] HOSP SEROLOGIC INC INC ABO GONADOTRO 86849 [facility] OREILLY PIN 1 [facility] CHORIONIC INC INC QUANTITAT ANT GONADOTRO 81875 DEN[facility] PIN 1 [facility] HOSP CHORIONIC INC INC QUANTITAT ANT GONADOTRO 99113 [facility] PIN 1 [facility] CHORIONIC INC INC QUANTITAT ANT BLOOD 20598 [facility] COUNT 1 [facility] HOSP COMPLETE INC INC AUTO&AUTO DIFRNTL WBC URINE 46003 [facility] OREILLY 1 [facility] CENTER VISUAL COLOR CMPRSN METHS GONADOTRO 14757 [facility] OREILLY PIN 0 [facility] CHORIONIC INC INC QUALITATI VE BLOOD 13250 [facility] OREILLY COUNT 0 [facility] COMPLETE INC INC AUTO&AUTO DIFRNTL WBC URINE 45636 DENILSONBOBBY OREILLY 0 [facility] TEST INC [place] V[place] [address] MEKA DELGADO 0 [facility] [place] [address] [facility] ORE[facility]Y INFUSION 0 [facility] H[facility] THERAPY INC INC PROPHYLAX IS/DX EA HOUR BLOOD 54330 [facility] ORE[facility]Y COUNT 0 [facility] HOSP COMPLETE INC INC AUTO&[place] [address] [facility] OREILLY INFUSION 0 [facility] THERAPY/P INC INC ROPHYLAXI S /DX 1ST TO 1 HR COMPREHEN 65590 [facility] ORE[facility]Y SIVE 0 [facility] METABOLIC INC INC PANEL ASPIRATIO 6952 [facility] OREILLY N 0 [facility] HOSP CURETTAGE INC [place] [address] PATHOLOGY PATHOLOGY SURG 0 & & PATHOLOGY CYTOLOGY CYTOLOGY LAB LAB GROSS&MARIPOSA ROSCOPIC EXAM US PREG 37572 [facility], UTERUS 0 [facility]ALTH MELA J REAL TIME CLINIC OF W/IMAGE DCMTN [place] [facility] GONADOTRO 63926 [facility] OREILLY PIN 0 [facility] CHORIONIC INC INC QUANTITAT ANT IADNA 70916 PATHOLOGY PATHOLOGY CHLAMYDIA 9 & & CYTOLOGY CYTOLOGY TRACHOMAT LAB LAB IS AMPLIFIED PROBE TQ CYTP C/V 25967 PATHOLOGY PATHOLOGY AUTO THIN 9 & & LYR CYTOLOGY CYTOLOGY PREPJ SCR LAB LAB MNL RESCR PHYS IADNA 91895 PATHOLOGY PATHOLOGY NEISSERIA 9 & & CYTOLOGY CYTOLOGY GONORRHOE LAB LAB AE AMPLIFIED PROBE TQ URINE 30867 [facility] OREILLY 9 [facility] CENTER VISUAL COLOR CMPRSN METHS GONADOTRO 30040 [facility] ORE[facility]Y PIN 9 [facility] CHORIONIC INC INC QUANTITAT ANT GONADOTRO 54450 [facility]IL[facility] OREILLY PIN 9 [facility] CHORIONIC INC INC QUANTITAT ANT US PREG 71235 [facility] O[facility] UTERUS 9 [facility] REAL TIME INC INC W/IMAGE DCMTN TRANSVAG BLOOD 31072 [facility] TYPING 9 [facility] SEROLOGIC INC INC RH (D) BLOOD 86937 [facility] COUNT 9 [facility] COMPLETE INC INC AUTO&AUTO DIFRNTL WBC Encounters Encounter Start End Date Code Location Performer Type Date PERIODIC 77375 HARPEL HARPEL PREVENTIV 4 4 LÓPEZ LÓPEZ E MED EST PATIENT 18-39 YRS EMERGENCY 32246 ALFARIS ALFARIS 4 4 [facility] DEPARTMEN T VISIT MODERATE SEVERITY EMERGENCY 19516 ALFARIS ALFARIS 4 4 [facility] DEPARTMEN T VISIT MODERATE SEVERITY OFFICE 74510 RANDY HENDERSONES RACHEL OUTPATIEN 3 3 T VISIT 15 MINUTES OFFICE 61638 RANDY HENDERSONES RACHEL OUTPATIEN 3 3 T VISIT 15 MINUTES EMERGENCY 89072 ANTONIO ALVAREZ 3 3 [facility] DEPARTMEN T VISIT HIGH/URGE NT SEVERITY EMERGENCY 95761 [facility] 3 3 [facility] DEPARTMEN INC T VISIT HIGH/URGE NT SEVERITY HOSPITAL [facility] - 3 3 [facility] OUTPATIEN INC T OFFICE 82099 HARPEL HARPEL OUTPATIEN 3 3 LÓPEZ LÓPEZ T VISIT 15 MINUTES OFFICE 95966 HARPEL HARPEL OUTPATIEN 3 3 LÓPEZ LÓPEZ T VISIT 15 MINUTES OFFICE 59193 HARPEL HARPEL OUTPATIEN 3 3 LÓPEZ LÓPEZ T VISIT 15 MINUTES OFFICE 79344 HARPEL HARPEL OUTPATIEN 3 3 LÓPEZ LÓPEZ T VISIT 15 MINUTES OFFICE 85985 HARPEL HARPEL OUTPATIEN 3 3 LÓPEZ LÓPEZ T VISIT 15 MINUTES HOSPITAL [facility] - 3 3 [facility] INPATIENT INC OFFICE 23710 HARPEL HARPEL OUTPATIEN 3 3 LÓPEZ LÓPEZ T VISIT 15 MINUTES OFFICE 61257 HARPEL HARPEL OUTPATIEN 3 3 LÓPEZ LÓPEZ T VISIT 15 MINUTES EMERGENCY 48155 ABHIJIT VICKERS 3 3 EMERGENCY DEPARTMEN SERVICES T VISIT HIGH/URGE NT SEVERITY EMERGENCY 89652 [facility] 3 3 [facility] DEPARTMEN INC T VISIT LOW/MODER SEVERITY HOSPITAL [facility] - 3 3 [facility] OUTPATIEN INC T [facility]OSPITAL [facility] - 3 3 [facility] OUTPATIEN INC T OFFICE 95999 HARPEL HARPEL OUTPATIEN 3 3 LÓPEZ LÓPEZ T VISIT 15 MINUTES OFFICE 16719 HARPEL HARPEL OUTPATIEN 3 3 LÓPEZ LÓPEZ T VISIT 15 MINUTES HOSPITAL [facility] - 3 3 [facility] OUTPATIEN INC T OFFICE 78070 HARPEL HARPEL OUTPATIEN 3 3 LÓPEZ LÓPEZ T VISIT 15 MINUTES OFFICE 29825 HARPEL HARPEL OUTPATIEN 3 3 LÓPEZ LÓPEZ T VISIT 15 MINUTES HOSPITAL [facility] - 3 3 [facility] OUTPATIEN INC T OFFICE 71141 HARPEL HARPEL OUTPATIEN 3 3 LÓPEZ LÓPEZ T VISIT 15 MINUTES OFFICE 84198 [facility] OUTPATIEN 3 3 VEL VEL T VISIT 15 MINUTES OFFICE 82353 HARPEL HARPEL OUTPATIEN 3 3 LÓPEZ LÓPEZ T VISIT 15 MINUTES HOSPITAL [facility] - 3 3 [facility] OUTPATIEN INC T EMERGENCY 39319 ABHIJIT HART DEPT 3 3 EMERGENCY VISIT SERVICES HIGH SEVERITY& THREAT FUN EMERGENCY 64143 [facility] 3 3 [facility] DEPARTMEN INC T VISIT MODERATE SEVERITY HOSPITAL [facility] - 3 3 [facility] OUTPATIEN INC T OFFICE 85589 HARPEL HARPEL OUTPATIEN 3 3 LÓPEZ LÓPEZ T VISIT 15 MINUTES OFFICE 44291 HARPEL HARPEL OUTPATIEN 3 3 LÓPEZ LÓPEZ T VISIT 15 MINUTES OFFICE 53588 HARPEL HARPEL OUTPATIEN 2 2 LÓPEZ LÓPEZ T VISIT 15 MINUTES EMERGENCY 84149 [facility] 2 2 [facility] DEPARTMEN INC T VISIT MODERATE SEVERITY HOSPITAL [facility] - 2 2 [facility] OUTPATIEN INC T EMERGENCY 55019 ANTONIO ALVAREZ DEPT 2 2 MARIPOSA MARIPOSA VISIT HIGH SEVERITY& THREAT [facility] OFFICE 36323 HARPEL HARPEL OUTPATIEN 2 2 LÓPEZ LÓPEZ T VISIT 15 MINUTES HOSPITAL [facility] - 2 2 [facility] OUTPATIEN INC T PERIODIC 56589 HARPEL PREVENTIV 2 2 LÓPEZ E MED EST PATIENT 18-39 YRS OFFICE 04645 HARPEL HARPEL OUTPATIEN 2 2 LÓPEZ LÓPEZ T VISIT 15 MINUTES OFFICE 07272 HARPEL HARPEL OUTPATIEN 2 2 LÓPEZ LÓPEZ T VISIT 15 MINUTES PERIODIC 00169 HARPEL PREVENTIV 2 2 LÓPEZ E MED EST PATIENT 18-39 YRS OFFICE 49356 A C ETHAN A OUTPATIEN 2 2 ETHAN DOE T NEW 45 PSC MINUTES OFFICE 20491 GIANCARLO Love HARPEL OUTPATIEN 1 1 ANURADHA DOE LÓPEZ T VISIT 15 MINUTES OFFICE 83231 GIANCARLO Love HARPEL OUTPATIEN 1 1 ANURADHA DOE LÓPEZ T VISIT 25 MINUTES HOSPITAL [facility] - 1 1 [facility] OUTPATIEN INC T OFFICE 50553 GIANCARLO R HARPEL OUTPATIEN 1 1 ANURADHA DOE LÓPEZ T NEW 60 MINUTES HOSPITAL [facility] - 1 1 [facility]PATIEN [facility] - 1 1 [facility]PATIEN [facility] H[facility] - 1 1 [facility] OUTPATIEN INC T OFFICE 75811 [facility] OREILLY OUTPATIEN 1 1 [facility] T VISIT CENTER CENTER 15 MINUTES EMERGENCY 95847 [facility] 1 1 [facility] DEPARTMEN INC T VISIT HIGH/URGE NT SEVERITY [facility]OSPITAL [facility] - 1 1 [facility] OUTPATIEN INC T EMERGENCY 18561 [facility] 0 0 [facility] DEPARTMEN INC T VISIT MODERATE SEVERITY [facility] - 0 0 [facility] OUTPATIEN INC T EMERGENCY 39479 ABHIJIT BARCLAY 0 0 EMERGENCY III, DEPARTMEN SERVICES DOREEN T VISIT HIGH/URGE ASSOCIATE NT S SEVERITY EMERGENCY 32333 ABHIJIT ALVAREZ, 0 0 EMERGENCY [facility] T VISIT MODERATE ASSOCIATE SEVERITY [facility]IL[facility] - 0 0 [facility] OUTPATIEN [facility] T EMERGENCY 71693 [facility] 0 0 [facility] H[facility] T VISIT LOW/MODER SEVERITY [facility] DENILSON - 0 0 [facility] OUTPATIEN [facility] H[facility] - 0 0 [facility] OUTPATIEN [facility] - 0 0 [facility] OUTPATIEN [facility] T OFFICE 08929 [facility] OREILLY OUTPAEN 9 9 [facility] T VISIT CENTER CENTER 15 MINUTES HOSPITAL [facility] - 9 9 [facility]PATIEN [facility] T HOSPITAL [facility] - 9 9 [facility] OUTPATIEN [facility] T EMERGENCY 10275 [facility] 9 9 [facility] DEPARTMEN INC T VISIT MODERATE SEVERITY
[2016-10-18 23:50] VITALS: BP 124/69
== END 2016-10-18 23:50 | disposition home or self-care (01) ==
LOC: ER 23:10
PROVIDERS: Emergency Medicine
DX: N91.2 Amenorrhea, unspecified (principal)

== ENCOUNTER 2017-01-07 14:32 | Emergency (ER) | payer MEDICAID ==
[~2017-01-07] VITALS: Ht 167.6 cm; Wt 86.2 kg
[~2017-01-07 14:32] MED LIST changes: +FLONASE ALLERG9.9 ML NS; +ZITHROMAX Z-PA250 M2 PO
--- NOTE | 2017-01-07 15:53 | Urgent Treatment Center Report ---
History of Present Issue Date/Time Seen by Provider 01/07/17 1392 Visit Reason Pt arrived:Walked Presenting Problem:PT C/O SORE THROAT AND BLISTERS IN HER THROAT Location if Accident: Onset of symptoms date/time:/ or onset unknown for:MEDICAL HX UNKNOWN Have you (or family members/close friends) recently traveled outside the [place]? N If Yes, where/when: Have you had exposure to infectious disease within the past month? TB? Other? Specify: c/o sore throat starting in the middle of the night. Thinks she saw blisters in throat. right ear pain also starting around that time. Feels swollen. tender to touch. No fever, ear drainage, malaise. No treatment prior to arrival. Two kids w/ fever and cold symptoms, both dx OM. Source patient Exam Limitations no limitations ALLERGIES Coded Allergies: Penicillins (Mild, 01/07/17) Home Medications Active Scripts Azithromycin (Zithromax) 250 MG PO DAILY #6 TAB Prov: 11/04/16 Fluticasone Propionate (Flonase Allergy Relief) 9.9 ML NS DAILY 14 Days Prov: 11/04/16 History Medical History General CAD? No Angina: No [place]: No Hypertension? No Hyperlipidemia? No CHF? No DVT? No PE? No COPD? No Asthma? Yes Anemia? No GERD? No Gastric ulcers? No GI Bleed? No Hernia? No Thyroid Problems? No Hypothyroidism? No CVA? No Seizures? No Diabetes? No Insulin Pump: No Home FSBS? No Renal Insuffiency? No UTI? Yes Stones? No BPH? No GB Disease: Yes Nephritic Syndrome? No Asplenia? No Hepatitis? No Sickle Cell Disease? No Arthritis? No Migraines? Yes Cataracts? No Glaucoma? No MRSA? No HIV? No TB? No Anxiety? No Depression? No Cancer? No More? No Immunization HX DT/Tetanus 1-4 Years Ago Flu Refused Pneumonia Refuses Surgical Hx Previous Surgery?Y D & C RT FALLOPIAN TUBE Cholecystectomy TUBAL Family History Family HX Diabetes Yes CAD No Hypertension Yes Hyperlipidemia No Cancer Yes TB No Social History Smoking Hx Smoker: Current Every Day Smoker Tobacco: Yes Type Cigarettes Packs/day 1 1/2 - 2 Packs Alcohol Alcohol: No Review of Systems All Other Systems Reviewed and Negative Constitutional see HPI Eyes denies drainage ENT see HPI. denies: nose discharge, nose congestion, throat swelling. Respiratory denies cough Gastrointestinal denies no symptoms reported Musculoskeletal denies other (no aches) Skin denies rash Psychiatric/Neurological denies headache Physical Exam Vital Signs Vital Signs Date Time Temp Pulse Resp B/P Pulse O2 O2 Flow FiO2 Ox Delivery Rate 01/07 1621 98.3 98 18 116/75 98 01/07 1621 98.3 98 18 116/75 98 01/07 1513 98.3 98 18 116/75 98 General Appearance normal appearance, no apparent distress but obviously overwhelmed by two sick children. Very short tempered. Eye Exam - bilateral eye normal exam Ear, Nose, Throat normal pharynx, normal nares, left EAC and TM normal, right eac slightly erythematous and very tender, TM normal Neck non-tender, supple Respiratory Status No: respiratory distress, productive cough, non productive cough. Lung Sounds anterior: lungs clear. posterior: lungs clear. bilateral: lungs clear. Cardiovascular regular rate/rhythm, no peripheral edema, no murmur Neurologic alert, oriented x 3 Skin normal color, warm/dry Lymphatic no adenopathy Medical Decision Making LABS/Meds/Orders Pt receiving controlled substance in ED? No Results/Orders Laboratory Tests 01/07/17 1510: Group A Strep Screen NOT DETECTED Orders Procedure Date/time Status [facility] STREP SCREEN 01/07 1516 Complete Departure Departure Time of Disposition 1612 Disposition DC Home or Self Care(routine) Clinical Impression Primary Impression: Right otitis externa Qualifiers: Otitis externa type: unspecified type Chronicity: acute Qualified Code: H60.501 - Unspecified acute noninfective otitis externa, right ear Secondary Impressions: Sore throat Condition STABLE Referrals Berry Cage MD (Family) Immediately for new or worsening symptoms, no noticeable improvement in 48-72 hours AND in 10-14 days to ensure ears are back to baseline. Patient Instructions DI for Otitis Externa, Sore Throat Additional Instructions * Start antibiotic drops BERNADETTE and be sure to take as ordered for the FULL length of time although you should start to feel better in 24-48 hours. * Monitor Temp. No fever expected. * warm compress often helps when placed over ear * Avoid water in ear. No swimming, cover when showering. bacteria like warm, dark, moist places and your ear is already warm and dark. * sleep elevated * * warm salt water gargles * warm fluids * sore throat lozenges * * Your throat swab was sent for culture. Those results are typically sent to your primary care. Be sure to follow up in 2-3 days if no improvement so they can review those results and treat if necessary. If you don't have primary care, I recommend you get one but in the mean time, you will have to return to a walk in clinic. Discharge Counseling Counseled pt/family regarding diagnosis, test results, medications/RX, home care, follow up needs Prescriptions Current Visit Scripts OFLOXACIN (Floxin 0.3% Otic Solution 5ML) 10 DROP OT BID #1 BOT at [id number]
[2017-01-07] MEDS ORDERED: FLOXIN 0.3%5 ML/BOT OT (16:14)
[2017-01-07 16:21] VITALS: BP 116/75
== END 2017-01-07 16:22 | disposition home or self-care (01) ==
LOC: ER 14:32 → UTC 14:37
DX: H60.501 Unspecified acute noninfective otitis externa, right ear (principal); R07.0 Pain in throat; Z88.0 Allergy status to penicillin; J45.909 Unspecified asthma, uncomplicated; F17.210 Nicotine dependence, cigarettes, uncomplicated

== ENCOUNTER 2017-01-12 15:34 | Emergency (ER) | payer MEDICAID ==
[~2017-01-12] VITALS: Ht 167.6 cm; Wt 90.7 kg
[~2017-01-12 15:34] MED LIST changes: +FLOXIN 0.3%5 ML/BOT OT
[2017-01-12] MEDS ORDERED: ALBUTEROL-200 PUFFS/ IH (16:08)
[2017-01-12] MEDS ORDERED: ZITHROMAX Z PA250 MG PO (16:08)
[2017-01-12] MEDS ORDERED: MEDROL 4MG. DOSE4 MG PO (16:08)
--- NOTE | 2017-01-12 16:11 | Emergency Room Report ---
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 N Clinical Suspician of Infection? N Mental Status: 1 - Regular (Normal Baseline) Sepsis Risk:Low Sepsis Risk Have you (or family members/close friends) recently traveled outside the [place]? N If Yes, where/when: Have you had exposure to infectious disease within the past month? TB? Other? Specify: Patient states that she started off with some ear pain was placed on some eardrops that now she's had a congested cough and wheezing she states she has history of asthma she states she smokes she states she hasn't smoked in the past 3 days has malaise and fatigue and cough is congested but nonproductive, states she has a moderate achy sore throat. Feverishness ALLERGIES Coded Allergies: Penicillins (Mild, 01/12/17) Home Medications Active Scripts Azithromycin (Zithromax) 250 MG PO DAILY #6 TAB Prov: 11/04/16 Fluticasone Propionate (Flonase Allergy Relief) 9.9 ML NS DAILY 14 Days Prov: 11/04/16 OFLOXACIN (Floxin 0.3% Otic Solution 5ML) 10 DROP OT BID #1 BOT Prov: 01/07/17 History Medical History General CAD? No Angina: No [place]: No Hypertension? No Hyperlipidemia? No CHF? No DVT? No PE? No COPD? No Asthma? Yes Anemia? No GERD? No Gastric ulcers? No GI Bleed? No Hernia? No Thyroid Problems? No Hypothyroidism? No CVA? No Seizures? No Diabetes? No Insulin Pump: No Home FSBS? No Renal Insuffiency? No End Stage Renal Disease? No UTI? Yes Stones? No BPH? No GB Disease: Yes Nephritic Syndrome? No Asplenia? No Hepatitis? No Sickle Cell Disease? No Arthritis? No Migraines? Yes Cataracts? No Glaucoma? No MRSA? No HIV? No TB? No Anxiety? No Depression? No Cancer? No More? 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 Eyes: conjunctiva/corneas clear ENT: Mucous membranes moist. Neck: No jugular venous distention. Cardiac: regular rate and rhythm Lungs: to wheezes rhonchi auscultation bilaterally Abdomen: Nontender, Nondistended, positive bowel sounds, no rebound : No CVA tenderness Extremities: no edema Musculoskeletal: No chest wall tenderness Skin: No rashes or lesions to exposed skin. Neurologic: Alert. No gross focal deficits Psychiatric: Normal affect (Krish DOE, Lauri) General Appearance normal appearance Respiratory Status No: respiratory distress. Cardiovascular normal exam Neurologic alert Medical Decision Making LABS/Meds/Orders Pt receiving controlled substance in ED? No Departure Departure Time of Disposition 1604 Disposition DC Home or Self Care(routine) Clinical Impression Primary Impression: Bronchitis Secondary Impressions: Asthma Qualifiers: Asthma severity: mild intermittent Asthma complication type: uncomplicated Qualified Code: J45.20 - Mild intermittent asthma, uncomplicated Condition STABLE Referrals Berry Cage MD (Family) Patient Instructions Acute Bronchitis, Asthma -- Adult Additional Instructions Follow-up with her family doctor Quit smoking Return if worse Prescriptions Current Visit Scripts Azithromycin (Zithromycin (Z-CHU) 250MG Tab) 250 MG PO DAILY #6 TAB TAKE TWO (2) TABLETS ON DAY 1, THEN ONE (1) TABLET DAY #2 THRU #5 Methylprednisolone (Medrol Dose Chu) 4 MG PO UD #1 CHU TAKE DIRECTED ON PACKAGING Albuterol (Albuterol-Hfa Inhaler) 1-2 PUFFS IH Q4HP PRN SHORTNESS OF BREATH #1 INH ED Critical Care Critical Care No at 161
--- NOTE | 2017-01-12 16:11 | Emergency Room Report ---
See Addendum History of Present Illness Time Seen by MD Wilkerson Presenting Problem in Triage Pt arrived:Walked Presenting Problem:cough,congestion, recent dx of ear infection at 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 N Clinical Suspician of Infection? N Mental Status: 1 - Regular (Normal Baseline) Sepsis Risk:Low Sepsis Risk Have you (or family members/close friends) recently traveled outside the [place]? N If Yes, where/when: Have you had exposure to infectious disease within the past month? TB? Other? Specify: Patient states that she started off with some ear pain was placed on some eardrops that now she's had a congested cough and wheezing she states she has history of asthma she states she smokes she states she hasn't smoked in the past 3 days has malaise and fatigue and cough is congested but nonproductive, states she has a moderate achy sore throat. Feverishness ALLERGIES Coded Allergies: Penicillins (Mild, 01/12/17) Home Medications Active Scripts Azithromycin (Zithromax) 250 MG PO DAILY #6 TAB Prov: 11/04/16 Fluticasone Propionate (Flonase Allergy Relief) 9.9 ML NS DAILY 14 Days Prov: 11/04/16 OFLOXACIN (Floxin 0.3% Otic Solution 5ML) 10 DROP OT BID #1 BOT Prov: 01/07/17 History Medical History General CAD? No Angina: No [place]: No Hypertension? No Hyperlipidemia? No CHF? No DVT? No PE? No COPD? No Asthma? Yes Anemia? No GERD? No Gastric ulcers? No GI Bleed? No Hernia? No Thyroid Problems? No Hypothyroidism? No CVA? No Seizures? No Diabetes? No Insulin Pump: No Home FSBS? No Renal Insuffiency? No End Stage Renal Disease? No UTI? Yes Stones? No BPH? No GB Disease: Yes Nephritic Syndrome? No Asplenia? No Hepatitis? No Sickle Cell Disease? No Arthritis? No Migraines? Yes Cataracts? No Glaucoma? No MRSA? No HIV? No TB? No Anxiety? No Depression? No Cancer? No More? 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 Eyes: conjunctiva/corneas clear ENT: Mucous membranes moist. Neck: No jugular venous distention. Cardiac: regular rate and rhythm Lungs: to wheezes rhonchi auscultation bilaterally Abdomen: Nontender, Nondistended, positive bowel sounds, no rebound : No CVA tenderness Extremities: no edema Musculoskeletal: No chest wall tenderness Skin: No rashes or lesions to exposed skin. Neurologic: Alert. No gross focal deficits Psychiatric: Normal affect (Krish DOE, Lauri) General Appearance normal appearance Respiratory Status No: respiratory distress. Cardiovascular normal exam Neurologic alert Medical Decision Making LABS/Meds/Orders Pt receiving controlled substance in ED? No Departure Departure Time of Disposition 1604 Disposition DC Home or Self Care(routine) Clinical Impression Primary Impression: Bronchitis Secondary Impressions: Asthma Qualifiers: Asthma severity: mild intermittent Asthma complication type: uncomplicated Qualified Code: J45.20 - Mild intermittent asthma, uncomplicated Condition STABLE Referrals Berry Cage MD (Family) Patient Instructions Acute Bronchitis, Asthma -- Adult Additional Instructions Follow-up with her family doctor Quit smoking Return if worse Prescriptions Current Visit Scripts Azithromycin (Zithromycin (Z-CHU) 250MG Tab) 250 MG PO DAILY #6 TAB TAKE TWO (2) TABLETS ON DAY 1, THEN ONE (1) TABLET DAY #2 THRU #5 Methylprednisolone (Medrol Dose Chu) 4 MG PO UD #1 CHU TAKE DIRECTED ON PACKAGING Albuterol (Albuterol-Hfa Inhaler) 1-2 PUFFS IH Q4HP PRN SHORTNESS OF BREATH #1 INH ED Critical Care Critical Care No at 1612
[2017-01-12 17:12] VITALS: BP 124/82
== END 2017-01-12 17:14 | disposition home or self-care (01) ==
LOC: ER 15:34
DX: J20.9 Acute bronchitis, unspecified (principal); J45.20 Mild intermittent asthma, uncomplicated; Z88.0 Allergy status to penicillin; F17.210 Nicotine dependence, cigarettes, uncomplicated

== ENCOUNTER 2017-02-18 20:17 | Emergency (ER) | payer MEDICAID ==
[~2017-02-18] VITALS: Ht 167.6 cm; Wt 83.9 kg
--- OUTSIDE RECORDS SUMMARY | 2017-02-18 20:34 | External Medical Summary Rpt | CCD ---
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 Name Role Phone A Mariama LONG MD [facility], Lori Unavailable Unavailable Mariama LONG MD PSC ALFARIS MOH, ALFARIS Unavailable Unavailable [facility] Unavailable Unavailable [facility]ATOR[facility], [facility] Unavailable Unavailable SERVICE, [facility] VEL, LANGSTON Unavailable Unavailable [facility] Unavailable Unavailable [facility] [place], Unavailable Unavailable [facility] СЕРГЕЙ LEVY, Unavailable Unavailable [facility] ROBBINS MARIPOSA, ANTONIO Unavailable Unavailable MARIPOSA ISABELA ALVAREZ, Unavailable Unavailable ISABELA ALVAREZ MD, Unavailable Unavailable ANURADHA VILLANUEVA MD Unavailable Unavailable LÓPE[facility] Unavailable Unavailable CENTER, [facility] Unavailable Unavailable INC, [facility], Unavailable Unavailable [facility] Un[facility] Un[facility], [facility] Un[facility], [facility] Unavailable Unavailable SERVICES, [facility] RANDY RACHEL, RANDY RACHEL Unavailable Unavailable [facility], Unavailable [facility]available [facility], [facility] Unavailable Unavailable LAB, [id number], Unavailable Unavailable [id number] CHRISTEN STORM Unavailable [facility]available [facility], Unavailable Unavailable [facility] Unavailable Unavailable #591, [id number] DOREEN BARCLAY III, Unavailable Unavailable DOREEN BARCLAY III Continuity of Care Document - 04-05-2009 through 2016 Problems Code Diagnosis DOS Provider Status J0100 ACUTE 11-04-2016 [facility] SINUS[facility] UNSPECIFIED N912 AMENORRHEA 10-18-2016 [facility]PECIFIED [facility] INC N926 IRREGULAR 10-18-2016 [facility] N [facility] UNSPECIFIED G4483 PRIMARY 10-12-2016 [facility]GH [facility] HEADACHE INC R071 CHEST PAIN 10-12-2016 [facility] R091 PLEURISY 10-12-2016 [facility] K1120 SIALOADENIT 08-09-2016 [facility] IS [facility]IANS, UNSPECIFIED PLLC K1121 ACUTE 08-09-2016 [facility] SIALOADENIT [facility] IS INC Z720 TOBACCO USE 08-09-2016 [facility] J0390 ACUTE 06-20-2016 [facility] TONSILLITIS [facility] INC UNSPECIFIED D05680 OTHER 05-05-2016 [facility] PERIPHERAL [facility], VERTIGO PLL UNSPECIFIED EAR R51 HEADACHE 05-05-2016 [facility], [facility] J209 ACUTE 03-28-2016 [facility] BRONCHITIS [facility] UNSPECIFIED INC K529 NONINFECTIV 03-28-2016 [facility] E [facility] GASTROENTER INC ITIS & COLITIS UNS N920 EXCESS & 12-27-2015 [facility] FREQUENT PHYSICIANS MENSTRUATIO GROUP N W/REGULAR CYCLE Z309 ENCOUNTER 12-27-2015 [facility] FOR [facility]IANS CONTRACEPTI GROUP VE MANAGEMENT UNS B86 SCABIES 09-23-2015 [facility], [facility] N761 SUBACUTE 07-23-2015 GI[facility] Love AND CHRONIC ANURADHA DOE VAGINITIS Q43021 ATYP SQ 07-23-2015 GI[facility] Love CELLS UNDET ANURADHA DOE SIGNIFICANC E CYTOL SMER CERV B373 CANDIDIASIS 07-06-2015 GIANCARLO Love OF VULVA ANURADHA DOE AND VAGINA N70722 ENCOUNTER 06-29-2015 GI[facility] Love INITIAL ANURADHA DOE PRESCRIPTIO N OTH CONTRACEPTI VE B977 PAPILLOMAVI 06-18-2015 [facility] CAUSE REFERNCE OF DZ LABORATORIE CLASSIFIED S ELSEWHERE I49635 CERV HIGH 06-18-2015 [facility] RSK HUMAN REFERNCE [facility] LABORATORIE LIAM DNA S TEST POS Z392 ENCOUNTER 06-18-2015 [facility] FOR ROUTINE REFERNCE LABORATORIE FOLLOW-UP S K8010 CALCULUS GB 06-11-2015 [facility], W/CHRONIC LLC CHOLECYST W/O OBSTRUCTION K8020 CALCULUS GB 06-10-2015 [facility] W/O ANESTH OF CHOLECYSTIT THE BLUE IS W/O OBSTRUCTION K8000 CALCULUS GB 06-09-2015 [facility] W/ACUTE [facility] CHOLECYST INC W/O OBSTRUCTION K8030 CALCULUS BD 06-09-2015 [facility], W/CHOLANGIT PLLC IS UNS W/O OBSTRUCTION R1011 RIGHT UPPER 06-09-2015 [facility] QUADRANT [facility], PAIN PLLC R109 UNSPECIFIED 06-09-2015 [facility] ABDOMINAL AMBULANCE PAIN SERVICE R112 NAUSEA WITH 06-09-2015 [facility] VOMITING PHYSICIANS, UNSPECIFIED PLLC R945 ABNORMAL 06-01-2015 [facility] RESULTS OF [facility] LIVER INC FUNCTION STUDIES B85966 UNSPECIFIED 05-27-2015 [facility] ASTHMA [facility] UNCOMPLICAT INC ED O3421 MATERNAL 04-21-2015 [facility] CARE SCAR PHYSICIANS PREVIOUS GROUP DELIVERY O7582 ONSET SPNT 04-21-2015 [facility] LABR 37 WK PHYSICIANS GEST <39 WK GROUP DEL C SECTION Z370 SINGLE LIVE 04-21-2015 [facility] Z3A00 WEEKS OF 04-21-2015 [facility] GESTATION ANESTH OF OF THE BLUE NOT SPECIFIED K90303 OTHER SPEC 04-15-2015 [facility] RELATED INC COND 3RD TRIMESTER Z3480 ENC 04-15-2015 [facility] Love SUPERVISION ANURADHA DOE OT NORMAL PREG UNS TRIMESTER Z3A36 36 WEEKS 04-15-2015 [facility] OF INC I10 ESSENTIAL 04-02-2015 [facility]YPERTENSIO [facility] N R61687 SUP PREG 04-02-2015 [place] [facility] W/OTH POOR SERV REPRODUCTIV FOUNDATION E/OB HX THIRD TRI Y25630 UNS 04-02-2015 [facility] G HTN COMP PREG THIRD TRIMESTER Z36 ENCOUNTER 04-02-2015 [place] [facility] SCREENING OF MOTHER Z3A34 34 WEEKS 04-02-2015 [facility] HOSPITAL OF O6002 03-29-2015 GIANCARLO LING MD WITHOUT DELIVERY SECOND TRIMESTER Z3483 ENC 03-22-2015 [facility] Love SUPERVISION ANURADHA DOE OT NORMAL 3 TRIMESTER I37945 OTHER SPEC 03-13-2015 [facility] RELATED INC COND UNS TRIMESTER O471 FALSE LABOR 03-13-2015 GIANCARLO Love AT/AFTER ANURADHA DOE 37 COMPLETED WEEKS GEST O1490 UNSPECIFIED 03-09-2015 GIANCARLO LING MD PRE-ECLAMPS IA UNSPECIFIED TRIMESTER O1492 UNSPECIFIED 03-09-2015 [facility] PRE-ECLAMPS INC IA SECOND TRIMESTER O133 GESTATIONAL 03-05-2015 [facility] W/[facility] SIG PROTEINURIA THIRD TRI Z3A30 30 WEEKS 03-05-2015 [facility] OF Z3490 ENC 03-01-2015 [facility] MEDICAL NORMAL IMAGING ASS PREG UNS UNS TRIMESTER J23840 DISEASES 02-19-2015 [facility]IGESTIVE [facility] COMP INC 3RD TRI Z131 ENCOUNTER 01-27-2015 [facility] FOR [facility] SCREENING INC FOR DIABETES MELLITUS N760 ACUTE 01-22-2015 GI[facility] Love VAGINITIS ANURADHA DOE O2602 EXCESSIVE 01-22-2015 [facility] Love WEIGHT GAIN ANURADHA DOE SECOND TRIMESTER Z3482 ENC 01-22-2015 GI[facility] Love SUPERVISION ANURADHA DOE OT NORMAL 2 TRIMESTER A44358 OTHER SPEC 01-17-2015 [facility] RELATED INC COND 2ND TRIMESTER Z3A25 25 WEEKS 01-17-2015 [facility] GESTATION [facility] OF INC 24881 CALCU 12-25-2014 [facility] W/O MENTION IMAGING ASS CHOLECYST/O BST 43593 CHOLECYSTIT 12-25-2014 ANURADHA CATES MD UNSPECIFIED 85703 OT CURRENT 12-25-2014 [facility] MAT CONDS [facility] CLASSIFIABL INC E ELSW ANTPRTM 59204 DECR 12-25-2014 [facility] MOVMNTS [facility] MGMT MOTH INC ANTPRTM COND/COMP 35837 FEVER 12-25-2014 [facility] UNSPECIFIED [facility] INC 58051 NAUSEA WITH 12-25-2014 [facility] VOMITING [facility] INC 78196 ABDOMINAL 12-25-2014 [place] [facility] RIGHT MEDICAL UPPER IMAGING ASS QUADRANT V221 SUPERVISION 12-25-2014 GIANCARLO LING MD NORMAL V222 12-25-2014 [facility], MEDICAL INCIDENTAL IMAGING ASS 36206 OTHER 11-30-2014 [facility] SPECIFED PHYSICIANS, COMPLICATIO PLLC N ANTEPARTUM V2389 SUPERVISION 09-29-2014 GIANCARLO LING MD HIGH-RISK 31443 CALCU BD 09-28-2014 [facility] WITHOUT PHYSICIANS MENTION GROUP CHOLECYST/O BSTRUCTION 50396 ABDOMINAL 09-28-2014 [facility] PAIN, [facility] UNSPECIFIED INC SITE 5759 UNSPECIFIED 09-25-2014 [facility] DISORDER PHYSICIANS, OF PLLC GALLBLADDER 5990 URINARY 09-23-2014 [facility] TRACT PHYSICIANS, INFECTION PLLC SITE NOT SPECIFIED 74957 INFECTIONS 09-23-2014 [facility] OF PHYSICIANS, GENITOURINA PLLC RY TRACT ANTEPARTUM 5768 OTHER 09-05-2014 [place] [facility] SPECIFIED SERV DISORDERS FOUNDATION OF BILIARY TRACT 87106 TOB USE D/O 09-05-2014 [facility] COMP PG [facility] /PP INC ANTEPARTM COND/COMP 49253 UNSPEC 09-04-2014 [facility] EARLY IMAGING ASS ANTEPARTUM 74644 ABDOMINAL 09-04-2014 [place] PA[place], LEFT MEDICAL UPPER IMAGING ASS QUADRANT V140 PERSONAL 09-04-2014 [facility] ALLERGY TO PENICILLIN 08968 THREATENED 09-03-2014 GIANCARLO Love , ANURADHA DOE ANTEPARTUM 59534 ABDOMINAL 09-03-2014 [facility] PAIN OTHER PHYSICIANS, SPECIFIED PLLC SITE 6268 OTH D/O 09-01-2014 GIANCARLO Love MENSTRUATIO ANURADHA DOE N&OTH ABN BLEED FE GNT TRACT V2889 OTHER 09-01-2014 GIANCARLO LING MD SCREENING V7231 ROUTINE 09-01-2014 [facility] GYNECOLOGIC REFERNCE AL LABORATORIE EXAMINATION S V2509 OTH GENERAL 07-02-2014 GIANCARLO LING MD CNSL&ADVICE CONTRACEPT MANAGEMENT 6100 SOLITARY 06-12-2014 GIANCARLO Love CYST OF ANURADHA DOE BREAST 1121 CANDIDIASIS 11-28-2013 [facility] OF VULVA REFERNCE AND VAGINA LABORATORIE S V259 UNSPECIFIED 11-28-2013 HARPEL LÓPEZ CONTRACEPTI VE MANAGEMENT 6825 CELLULITIS 07-02-2013 ALFARIS MOH AND ABSCESS OF BUTTOCK 8471 THORACIC 02-14-2013 RANDY RACHEL SPRAIN AND STRAIN V8534 BODY MASS 02-14-2013 RANDY RACHEL INDEX 34.0-34.9 ADULT 8483 SPRAIN AND 01-20-2013 RANDY RACHEL STRAIN OF RIBS 18878 OTHER ACUTE 01-15-2013 ANTONIO MARIPOSA PAIN V242 ROUTINE 11-15-2012 [facility]PEL LÓPE[facility] FOLLOW-UP 18453 SEVERE 10-13-2012 [facility] LÓ[facility] PRE-ECLAMPS IA, WITH DELIVERY 62308 ABNORM 10-13-2012 [facility] L[facility] HEART RATE/RHYTHM ANTPRTM COND/COMP 27992 C/S DELIV 10-13-2012 [facility] W/O INDICAT DELIV W/WO ANTPRTM COND V270 OUTCOME OF 10-13-2012 [facility] LÓ[facility] DELIVERY SINGLE LIVEBORN 86886 MILD OR 10-11-2012 CHRISTEN PRESCOTT UNSPECIFIED PRE-ECLAMPS IA WITH DELIVERY 89000 ABN FETL 10-11-2012 CHRISTEN PRESCOTT HRT RATE/RHYTHM DELIV W/WO ANTPRTM COND 95634 UNSPEC 10-08-2012 HARPE[facility] LÓPE[facility] HYPERTENSIO N COND/COMPL 7245 UNSPECIFIED 09-17-2012 [facility] 14743 ABDOMINAL 09-17-2012 [facility] TENDERNESS, [facility] INC GENERALIZED 80565 HEAD 09-17-2012 [facility], AMBULANCE UNSPECIFIED SERVICE E8809 ACCIDENTAL 09-17-2012 ABHIJIT FALL ON OR EMERGENCY FROM OTHER SERVICES STAIRS OR STEPS E8889 UNSPECIFIED 09-17-2012 [facility] V286 SCREENING 09-13-2012 [facility] OF [facility] [place] [address] THREATENED 08-30-2012 [facility] PREMATURE LABOR ANTEPARTUM 60844 UNSPECIFIED 07-29-2012 HARPEL LÓPEZ VAGINITIS AND VULVOVAGINI TIS V771 SCREENING 07-18-2012 [facility] FOR [facility] DIABETES INC MELLITUS 5589 OTH&UNSPEC 06-09-2012 [facility] NONINFECTIO [facility]GENCY US SERVICES GASTROENTER ITIS&COLITI S 01279 OTH CURRENT 06-09-2012 [facility] MATERNAL [facility]Y CCE-COMPL SERVICES PG CB/PP-UNS EOC 74812 UNSPEC 03-16-2012 ANTONIO MONGE HEMORR EARLY PG UNSPEC EPIS CARE V2881 ENCOUNTER 03-01-2012 [facility] L[facility] FOR ANATOMIC SURVEY V704 EXAMINATION 03-01-2012 [facility] FOR MEDICOLEGAL REASON 87658 TRICHOMONAL 08-28-2011 [facility] LÓ[facility] VULVOVAGINI TIS V745 SCREENING 08-17-2011 [facility] LÓ[facility] EXAMINATION FOR VENEREAL DISEASE 6262 EXCESSIVE 08-07-2011 [facility] LÓ[facility] OR FREQUENT MENSTRUATIO N 7840 HEADACHE 05-24-2011 Lori LONG MD PSC 7614 FETUS/NEWBO 03-03-2011 GIANCARLO Love RN AFFECTED ANURADHA DOE ECTOPIC MOTHER V2502 GENERAL 03-03-2011 GIANCARLO Loev CNSL ANURADHA DOE INITIATION OTH CONTRACEPT MEASURES 6202 OTHER AND 02-17-2011 GIANCARLO Love UNSPECIFIED ANURADHA DOE OVARIAN CYST 91331 TUBAL 02-17-2011 PATHOLOGY & CYTOLOGY WITHOUT LAB INTRAUTERIN E 20875 UNSPEC 02-16-2011 [place] ECTOPIC PG MEDICAL WITHOUT IMAGING ASS INTRAUTERIN E PG 632 MISSED 02-11-2011 [facility] INC V7242 02-08-2011 [facility] EXAMINATION HEALTH OR TEST CENTER POSITIVE RESULT 6269 UNS D/O 05-31-2009 ABHIJIT MENSTRUATIO EMERGENCY N&OTH ABN SERVICES BLEED FE ASSOCIATES GNT TRACT 27368 UNSPECIFIED 05-21-2009 [facility] DENTAL [facility] CARIES INC 5259 UNSPECIFIED 05-21-2009 ABHIJIT DISORDER EMERGENCY TEETH&SUPPO SERVICES RTING ASSOCIATES STRUCTURES 6238 OTHER 04-27-2009 [place] SPECIFIED MEDICAL NONINFLAMMA IMAGING TORY ASSOCIATES DISORDER VAGINA Medications Na ND Rx Da Fi Fi Am Da Di Ph RX Ph St me C No te ll ll ou ys ag ar # ys at rm s nt no ma ic us Or Da si cy ia de te s n re d VE 00 09 10 18 17 00 NC Ac NT 17 -2 -2 .0 00 L- ti OL 30 9- 7- 00 07 MA ve IN 68 20 20 51 RT 22 17 17 27 HF 0 83 PH A AR 90 MA CY MC G #5 IN 91 GUNN LE R ME 59 09 10 21 6 00 NC Ac TH 74 -2 -2 .0 00 L- ti YL 60 9- 7- 00 07 MA ve MD 00 20 20 51 RT ED 10 17 17 27 NI 3 81 PH SO AR LO MA NE CY 4 #5 MG 91 DO SE PK AZ 50 09 10 6. 5 00 NC Ac IT 11 -2 -2 00 00 L- ti HR 10 9- 7- 0 07 MA ve OM 78 20 20 51 RT YC 75 17 17 27 IN 1 82 PH AR 25 MA 0 CY MG #5 TA 91 BL ET OF 50 09 10 5. 4 00 NC Ac LO 38 -2 -2 00 00 L- ti XA 30 4- 0- 0 07 MA ve CI 02 20 20 51 RT N 50 17 17 15 0. 5 68 PH 3% AR MA EA CY R DR #5 OP 91 S AZ 59 07 08 6. 5 00 WA Ac IT 76 -2 -1 00 00 L- ti HR 23 2- 8- 0 07 MA ve OM 06 20 20 50 RT YC 00 17 17 01 IN 1 49 PH AR 25 MA 0 CY MG #5 TA 91 BL ET FL 60 07 08 16 30 00 NC Ac UT 43 -2 -1 .0 00 L- ti IC 20 2- 8- 00 07 MA ve 26 20 20 50 RT ON 41 17 17 01 E 5 50 PH MD AR OP MA CY 50 #5 MC 91 G SP RA Y ME 59 07 08 21 6 00 WA Ac TH 74 -0 -0 .0 00 L- ti YL 60 8- 4- 00 07 MA ve MD 00 20 20 49 RT ED 10 17 17 64 NI 3 22 PH SO AR LO MA NE CY 4 #5 MG 91 DO SE PK CL 63 04 05 40 10 00 WA Ac IN 30 -2 -1 .0 00 L- ti DA 40 6- 9- 00 07 MA ve MY 69 20 20 48 RT CI 30 17 17 47 N 1 07 PH HC AR L MA 30 CY 0 MG #5 91 CA PS UL E IB 68 04 05 15 5 00 WA Ac UP 64 -2 -1 .0 00 L- ti RO 50 6- 9- 00 07 MA ve FE 53 20 20 48 RT N 15 17 17 47 80 4 08 PH 0 AR MG MA CY TA BL #5 ET 91 ME 59 03 03 21 6 00 WA Ac TH 74 -0 -3 .0 00 L- ti YL 60 7- 1- 00 07 MA ve MD 00 20 20 47 RT ED 10 17 17 49 NI 3 95 PH SO AR LO MA NE CY 4 #5 MG 91 DO SE PK AZ 59 03 03 6. 5 00 WA Ac IT 76 -0 -3 00 00 L- ti HR 23 7- 1- 0 07 MA ve OM 06 20 20 47 RT YC 00 17 17 49 IN 1 96 PH AR 25 MA 0 CY MG #5 TA 91 BL ET ME 59 01 02 15 5 00 WA Ac CL 74 -2 -1 .0 00 L- ti IZ 60 1- 7- 00 07 MA ve IN 12 20 20 46 RT E 10 17 17 60 25 6 80 PH AR MG MA CY TA BL #5 ET 91 MD 68 01 02 14 4 00 WA Ac OM 38 -2 -1 .0 00 L- ti ET 20 1- 7- 00 07 MA ve GUNN 04 20 20 46 RT ZI 10 17 17 60 NE 1 82 PH AR 25 MA CY MG #5 TA 91 BL ET ME 00 02 02 00 [...] Procedures Procedure DOS Code Location Performer Comment [facility] 741 [facility] CERVICAL 3 [facility] SECTION ASPIRATIO 6952 [facility] N [facility] FOLLOW[facility] DELIVERY/ Encounters Encounter Start End Date Code Location Performer Type Date [facility] 7 7 [facility] 7 7 [facility] 7 [facility] 6 6 [facility] 6 6 [facility] 6 [facility] 6 6 [facility] 5 5 [facility] 5 [facility] - 5 5 [facility] 5 5 [facility] 5 5 [facility] 5 5 [facility] 5 [facility] - 5 5 [facility] 5 5 [facility] - 5 5 [facility] - 5 5 [facility] - 5 5 [facility] - 5 5 [facility] - 5 5 [facility] - 5 5 [facility] - 5 5 [facility] 5 5 [facility] 5 5 [facility] - 5 5 [facility] 5 5 [facility] - 5 5 [facility] - 3 3 [facility] - 3 3 [facility] - 3 3 [facility] - 3 3 [facility] - 3 3 [facility] - 3 3 [facility] 3 3 [facility] 3 3 [facility] 1 1 [facility] 1 1 [facility] - 1 1 [facility] - 1 1 [facility] - 1 1 [facility] - 0 0 [facility] - 0 0 [facility] - 9 9 [facility] [place]
--- OUTSIDE RECORDS SUMMARY | 2017-02-18 20:34 | External Medical Summary Rpt | CCD ---
Demographics Preferred Language [place] Islander Marital Status Unknown Orthodoxy Affiliation Unknown Race Unknown Ethnic Group Unknown Author Author , MARC TRAN Address Unknown Phone Immunization Unable to retrieve immunization data due to connection failure with Immunization Registry. Please try again later.
--- OUTSIDE RECORDS SUMMARY | 2017-02-18 20:34 | External Medical Summary Rpt ---
Author Author [employer], [place] Production Organization [employer] Address Unknown Phone Unavailable Results Streptococcus pyogenes Ag [Presence] in Unspecified specimen Observa Value Referen Units Interpr Notes Date tion ce etation Range Strepto NOT NOTDETE No No LOT # Dec 24 coccus DETECTE CTED informa informa N/A EXP 2017 pyogene D tion in tion in DATE 3:10 PM s Ag source source N/A [Presen data data ce] in Unspeci fied specime n Streptococcus pyogenes Ag [Presence] in Unspecified specimen Observa Value Referen Units Interpr Notes Date tion ce etation Range Strepto NOT NOTDETE No No LOT # Nov 04 coccus DETECTE CTED informa informa N/A EXP 2016 pyogene D tion in tion in DATE 2:30 PM s Ag source source N/A [Presen data data ce] in Unspeci fied specime n Choriogonadotropin.beta subunit [Units] in 24 hour Urine Observa Value Referen Units Interpr Notes Date tion ce etation Range Choriogon NEG No No Oct 18 adotropin informati informati 2016 .beta on in on in 11:15 PM subunit source source [Units] data data in 24 hour Urine
--- OUTSIDE RECORDS SUMMARY | 2017-02-18 20:34 | External Medical Summary Rpt | CCD ---
Demographics Preferred Language [place] Zealander Marital Status Unknown Episcopal Affiliation Unknown Race Unknown Ethnic Group Unknown Author Author , MARC TRAN Address Unknown Phone Immunization Unable to retrieve immunization data due to connection failure with Immunization Registry. Please try again later.
--- OUTSIDE RECORDS SUMMARY | 2017-02-18 20:34 | External Medical Summary Rpt | CCD ---
Author Author , MARC Mackey MARC Address Unknown Phone [email or web address] Care Team Providers Care Grid Operator Name Role Phone A Mariama LONG MD [facility], Lori Unavailable Unavailable Mariama LONG MD PSC ALFARIS MOH, ALFARIS Unavailable Unavailable [facility] Unavailable Unavailable [facility]ORATOR[facility], [facility] Unavailable Unavailable SERVICE, [facility] [place] VEL, LANGSTON Unavailable Unavailable [facility] Unavailable Unavailable THE [facility], [facility], Unavailable Unavailable [facility] СЕРГЕЙ LEVY, Unavailable Unavailable [facility] ROBBINS MARIPOSA, ANTONIO Unavailable Unavailable MARIPOSA ISABELA ALVAREZ, Unavailable Unavailable ISABELA ALVAREZ MD, Unavailable Unavailable ANURADHA VILLANUEVA MD Unavailable Unavailable [facility] Unavailable Unavailable CENTER, [facility] Unavailable Unavailable INC, [facility], Unavailable Unavailable [facility] Unavailable Unavailable [facility], [facility] Un[facility], [facility] Unavailable Unavailable SERVICES, [facility] RANDY RACHEL, RANDY RACHEL Unavailable Unavailable [facility], Unavailable Unavailable [facility], [facility] Unavailable Unavailable LAB, [id number], Unavailable Unavailable [id number] CHRISTEN STORM Unavailable Unavailable [facility], Unavailable Unavailable [facility] Unavailable Unavailable #591, [id number] DOREEN BARCLAY III, Unavailable Unavailable [...] 06-20-2016 [facility] UNSPECIFIED [id number] OTHER 05-05-2016 [facility], [facility] UNSPECIFIED EAR R51 HEADACHE 05-05-2016 [facility], [facility] J209 ACUTE 03-28-2016 [facility] BRONCH[facility]IS [facility] UNSPECIFIED INC K529 NONINFECTIV 03-28-2016 [facility] E [facility] GASTROENTER INC ITIS & COLITIS UNS N920 EXCESS & 12-27-2015 [facility] FREQUENT PHYSICIANS MENSTRUATIO GROUP N W/REGULAR CYCLE Z309 ENCOUNTER 12-27-2015 [facility] FOR PHYSICIANS CONTRACEPTI GROUP VE MANAGEMENT UNS B86 SCABIES 09-23-2015 [facility], [facility] N761 SUBACUTE 07-23-2015 GIANC[facility]LO Love AND CHRONIC ANURADHA DOE VAGINITIS G71408 ATYP SQ 07-23-2015 GIANCARLO Love CELLS UNDET ANURADHA DOE SIGNIFICANC E CYTOL SMER CERV B373 CANDIDIASIS 07-06-2015 GIANCARLO Love OF VULVA ANURADHA DOE AND VAGINA S40353 ENCOUNTER 06-29-2015 GIANCARLO Love INITIAL ANURADHA DOE PRESCRIPTIO N OTH CONTRACEPTI VE B977 PAPILLOMAVI 06-18-2015 [facility] CAUSE REFERNCE OF DZ LABORATORIE CLASSIFIED S ELSEWHERE [id number] CERV HIGH 06-18-2015 [facility] RSK HUMAN REFERNCE [...] [facility], PAIN PLLC R109 UNSPECIFIED 06-09-2015 [facility] ABDOMINAL AMBULANCE PAIN SERVICE R112 NAUSEA WITH 06-09-2015 [facility] VOMITING [facility], UNSPECIFIED PLLC R945 ABNORMAL 06-01-2015 [facility] RESULTS OF [facility] LIVER INC FUNCTION STUDIES [id number] UNSPECIFIED 05-27-2015 [facility] ASTHMA [facility] UNCOMPLICAT INC ED O3421 MATERNAL 04-21-2015 [facility] CARE SCAR PHYSICIANS PREVIOUS GROUP DELIVERY O7582 ONSET SPNT 04-21-2015 [facility] LAB[facility] 37 WK PHYSICIANS GEST <39 WK GROUP DEL C SECTION Z370 SINGLE LIVE 04-21-2015 [facility] GROUP Z3A00 WEEKS OF 04-21-2015 [facility] AN[facility] OF OF THE BLUE NOT SPECIFIED I22872 OTHER SPEC 04-15-2015 [facility] RELATED INC COND 3RD TRIMESTER Z3480 ENC 04-15-2015 GIANC[facility]LO Love SUPERVISION ANURADHA DOE OT NORMAL PREG UNS TRIMESTER Z3A36 36 WEEKS 04-15-2015 [facility] OF INC I10 ESSENTIAL 04-02-2015 [facility] HYPERTENSIO FOUNDATION N Q44725 SUP PREG 04-02-2015 [facility] W/OTH POOR SERV REPRODUCTIV FOUNDATION E/OB HX THIRD TRI Q23317 UNS 04-02-2015 [facility] G HTN COMP PREG THIRD TRIMESTER Z36 ENCOUNTER 04-02-2015 [facility] SCREENING OF MOTHER Z3A34 34 WEEKS 04-02-2015 [facility] OF O6002 03-29-2015 GIANCARLO LING MD WITHOUT DELIVERY SECOND TRIMESTER Z3483 ENC 03-22-2015 GIANCARLO Love SUPERVISION ANURADHA DOE OT NORMAL 3 TRIMESTER W78506 OTHER SPEC 03-13-2015 [facility] RELATED [facility] COND UNS TRIMESTER O471 FALSE LABOR 03-13-2015 GIANCARLO Love AT/AFTER ANURADHA DOE 37 COMPLETED WEEKS GEST O1490 UNSPECIFIED 03-09-2015 GIANCARLO LING MD PRE-ECLAMPS IA UNSPECIFIED TRIMESTER O1492 UNSPECIFIED 03-09-2015 [facility] PRE-ECLAMPS INC IA SECOND TRIMESTER O133 GESTATIONAL 03-05-2015 [facility] SIG PROTEINURIA THIRD TRI Z3A30 30 WEEKS 03-05-2015 [facility] OF Z3490 ENC 03-01-2015 [facility] MEDICAL NORMAL IMAGING ASS PREG UNS UNS TRIMESTER Y37252 DISEASES 02-19-2015 [facility] DIGESTIVE [facility] COMP INC 3RD TRI Z131 ENCOUNTER 01-27-2015 [facility] FOR [facility] SCREENING INC FOR DIABETES MELLITUS N760 ACUTE 01-22-2015 GIANCARLO Love VAGINITIS ANURADHA DOE O2602 EXCESSIVE 01-22-2015 GIANCARLO Love WEIGHT GAIN ANURADHA DOE SECOND TRIMESTER Z3482 ENC 01-22-2015 GIANCARLO Love SUPERVISION ANURADHA DOE OT NORMAL 2 TRIMESTER W25654 OTHER SPEC 01-17-2015 [facility] RELATED INC COND 2ND TRIMESTER Z3A25 25 WEEKS 01-17-2015 [facility]ATION [facility] OF INC 29343 CALCU 12-25-2014 [facility] W/O MENTION IMAGING ASS CHOLECYST/O BST 92609 CHOLECYSTIT 12-25-2014 ANURADHA CATES MD UNSPECIFIED 32586 OT CURRENT 12-25-2014 [facility] MAT CONDS [facility] CLASSIFIABL INC E ELSW ANTPRTM 65464 DECR 12-25-2014 [facility] MOVMNTS [facility] MGMT MOTH INC ANTPRTM COND/COMP 21677 FEVER 12-25-2014 [facility] UNSPECIFIED [facility] INC 71283 NAUSEA WITH 12-25-2014 [facility] VOMITING [facility] INC 33486 ABDOMINAL 12-25-2014 [place] PAIN RIGHT MEDICAL UPPER IMAGING ASS QUADRANT V221 SUPERVISION 12-25-2014 GIANCARLO LING MD NORMAL V222 12-25-2014 [facility], MEDICAL INCIDENTAL IMAGING ASS 26942 OTHER 11-30-2014 [facility] SPECIFED PHYSICIANS, COMPLICATIO PLLC N ANTEPARTUM V2389 SUPERVISION 09-29-2014 GIANCARLO LING MD HIGH-RISK 35804 CALCU BD 09-28-2014 [facility] WITHOUT PHYSICIANS MENTION GROUP CHOLECYST/O BSTRUCTION 16229 ABDOMINAL 09-28-2014 [facility] PAIN, [facility] UNSPECIFIED INC SITE 5759 UNSPECIFIED 09-25-2014 [facility] DISORDER PHYSICIANS, OF PLLC GALLBLADDER 5990 URINARY 09-23-2014 [facility] TRACT [facility]YS[facility], INFECTION PLLC SITE NOT SPECIFIED 81541 INFECTIONS 09-23-2014 [facility] OF PHYSICIANS, GENITOURINA PLLC RY TRACT ANTEPARTUM 5768 OTHER 09-05-2014 [place] [facility] SPECIFIED SERV DISORDERS [facility]OUNDATION OF BILIARY TRACT 63741 TOB USE D/O 09-05-2014 [facility] COMP PG [facility] /PP INC ANTEPARTM COND/COMP 36219 UNSPEC 09-04-2014 [facility] EARLY IMAGING ASS ANTEPARTUM 84096 ABDOMINAL 09-04-2014 [place] PAIN, LEFT MEDICAL UPPER IMAGING ASS QUADRANT V140 PERSONAL 09-04-2014 [facility] ALLERGY TO PENICILLIN 18054 THREATENED 09-03-2014 GIANCARLO Lvoe , ANURADHA DOE ANTEPARTUM 69146 ABDOMINAL 09-03-2014 [facility] PAIN OTHER PHYSICIANS, SPECIFIED PLLC SITE 6268 OTH D/O 09-01-2014 GIANACRLO Love MENSTRUATIO ANURADHA DOE N&OTH ABN BLEED [...] AND 01-20-2013 RANDY RACHEL STRAIN OF RIBS 72055 OTHER ACUTE 01-15-2013 ANTONIO MARIPOSA PAIN V242 ROUTINE 11-15-2012 [facility] FOLLOW-UP 49430 SEVERE 10-13-2012 [facility] PRE-ECLAMPS IA, WITH DELIVERY 36664 ABNORM 10-13-2012 [facility] HEART RATE/RHYTHM ANTPRTM COND/COMP 87894 C/S DELIV 10-13-2012 [facility] W/O INDICAT DELIV W/WO ANTPRTM COND V270 OUTCOME OF 10-13-2012 [facility] DELIVERY SINGLE LIVEBORN 43751 MILD OR 10-11-2012 CHRISTEN PRESCOTT UNSPECIFIED PRE-ECLAMPS IA WITH DELIVERY 26685 ABN FETL 10-11-2012 [facility]ST[facility] PRESCOTT HRT RATE/RHYTHM DELIV W/WO ANTPRTM COND 66989 UNSPEC 10-08-2012 [facility] HYPERTENSIO N COND/COMPL 7245 UNSPECIFIED 09-17-2012 [facility] 54155 ABDOMINAL 09-17-2012 [facility] TENDERNESS[facility] GENERALIZED 45661 HEAD 09-17-2012 [facility], AMBULANCE UNSPECIFIED SERVICE E8809 ACCIDENTAL 09-17-2012 ABHIJIT FALL ON OR EMERGENCY FROM OTHER SERVICES STAIRS OR STEPS E8889 UNSPECIFIED 09-17-2012 [facility] V286 SCREENING 09-13-2012 [facility] OF [facility] [place] [address] THREATENED 08-30-2012 [facility] ANTEPARTUM 81906 UNSPECIFIED 07-29-2012 [facility] VAGINITIS AND VULVOVAGINI TIS V771 SCREENING 07-18-2012 [facility] FOR [facility] DIABETES INC MELLITUS 5589 OTH&UNSPEC 06-09-2012 [facility] NONINFECTIO [facility]ERGENCY US SERVICES GASTROENTER ITIS&COLITI S 22565 OTH CURRENT 06-09-2012 [facility] MATERNAL EMERGENCY CCE-COMPL SERVICES PG CB/PP-UNS EOC 39812 UNSPEC 03-16-2012 ANTONIO MONGE HEMORR EARLY PG UNSPEC EPIS CARE V2881 ENCOUNTER 03-01-2012 [facility] FOR ANATOMIC SURVEY V704 EXAMINATION 03-01-2012 [facility] FOR MEDICOLEGAL REASON 37673 TRICHOMONAL 08-28-2011 [facility] VULVOVAGINI TIS V745 SCREENING 08-17-2011 [facility] EXAMINATION FOR VENEREAL DISEASE 6262 EXCESSIVE 08-07-2011 [facility] OR FREQUENT MENSTRUATIO N 7840 HEADACHE 05-24-2011 Lori LONG MD PSC 7614 FETUS/NEWBO 03-03-2011 GIANCARLO Love RN AFFECTED ANURADHA DOE ECTOPIC MOTHER V2502 GENERAL 03-03-2011 GIANCARLO Love CNSL ANURADHA DOE INITIATION OTH CONTRACEPT MEASURES 6202 OTHER AND 02-17-2011 GIANCARLO Love UNSPECIFIED ANURADHA DOE OVARIAN CYST 17184 TUBAL 02-17-2011 PATHOLOGY & CYTOLOGY WITHOUT LAB INTRAUTERIN E 17422 UNSPEC 02-16-2011 [place] ECTOPIC PG MEDICAL WITHOUT IMAGING ASS INTRAUTERIN E PG 632 MISSED 02-11-2011 [facility] INC V7242 02-08-2011 [facility] EXAMINATION HEALTH OR TEST CENTER POSITIVE RESULT 6269 UNS D/O 05-31-2009 ABHIJIT MENSTRUATIO EMERGENCY N&OTH ABN SERVICES BLEED FE ASSOCIATES GNT TRACT 52788 UNSPECIFIED 05-21-2009 [facility] DENTAL [facility] CARIES INC 5259 UNSPECIFIED 05-21-2009 [facility] DISORDER EMERGENCY TEETH&SUPPO SERVICES RTING ASSOCIATES STRUCTURES 6238 OTHER 04-27-2009 [place] SPECIFIED MEDICAL NONINFLAMMA IMAGING TORY ASSOCIATES DISORDER VAGINA Medications Na ND Rx Da Fi Fi Am Da Di Ph RX Ph St me C No te ll ll ou ys ag ar # ys at rm s nt no ma ic us Or Da si cy ia de te s n re d VE 00 09 10 18 17 00 UT Ac NT 17 -2 -2 .0 00 L- ti OL 30 9- 7- 00 07 MA ve IN 68 20 20 51 RT 22 17 17 27 HF 0 83 PH A AR 90 MA CY MC G #5 IN 91 GUNN LE R ME 59 09 10 21 6 00 UT Ac TH 74 -2 -2 .0 00 L- ti YL 60 9- 7- 00 07 MA ve IN 00 20 20 51 RT ED 10 17 17 27 NI 3 81 PH SO AR LO MA NE CY 4 #5 MG 91 DO SE PK AZ 50 09 10 6. 5 00 UT Ac IT 11 -2 -2 00 00 L- ti HR 10 9- 7- 0 07 MA ve OM 78 20 20 51 RT YC 75 17 17 27 IN 1 82 PH AR 25 MA 0 CY MG #5 TA 91 BL ET OF 50 09 10 5. 4 00 UT Ac LO 38 -2 -2 00 00 [...] FL 60 07 08 16 30 00 UT Ac UT 43 -2 -1 .0 00 L- ti IC 20 2- 8- 00 07 MA ve 26 20 20 50 RT ON 41 17 17 01 E 5 50 PH IN AR OP MA CY 50 #5 MC 91 G SP RA Y ME 59 07 08 21 6 00 WA Ac TH 74 -0 -0 .0 00 L- ti YL 60 8- 4- 00 07 MA ve IN 00 20 20 49 RT ED 10 [...] 60 7- 1- 00 07 MA ve IN 00 20 20 47 RT ED 10 [...] MA CY TA BL #5 ET 91 IN 68 01 02 14 4 00 WA [...] Procedures Procedure DOS Code Location Performer Comment [facility] 741 [facility] ORE[facility] CERVICAL 3 [facility] SECTION ASPIRATIO 6952 [facility] OREILLY N 0 [facility] CURETTAGE [facility] FOLLOWING DELIVERY/ Encounters Encounter Start End Date Code Location Performer Type Date [facility] - 7 7 [facility] - 7 7 [facility] - 7 7 [facility] 7 7 [facility] 7 7 [facility] 7 7 [facility] - 6 6 [facility] - 6 6 [facility] - 6 6 [facility] - 6 6 [facility] 6 [facility] 6 6 [facility] 6 6 [facility] 5 5 [facility] 5 5 [facility] - 5 5 [facility] - 5 5 [facility] - 5 5 [facility] - 5 5 [facility] - 5 5 [facility] - 5 5 [facility] - 5 5 [facility] - 5 5 [facility] - 5 5 [facility] 5 5 [facility] 5 5 [facility] - 5 5 [facility] 5 5 [facility] 5 5 [facility] - 5 5 [facility] - 5 5 [facility] - 5 5 [facility]PAT[facility]ERS[facility] - 5 5 [facility] - 5 5 [facility] - 3 3 [facility]PAT[facility] - 3 3 [facility]PAT[facility] - 3 3 [facility]PAT[facility] - 3 3 [facility] - 3 3 [facility] - 3 3 [facility] - 3 3 [facility] - 3 3 [facility] 2 2 [facility] 2 2 [facility] - 1 1 [facility] - 1 1 [facility] - 1 1 [facility] - 1 1 [facility] - 1 1 [facility] - 0 0 [facility] - 0 0 [facility] 0 0 [facility] 0 0 [facility] 0 0 [facility] 9 9 [facility] 9 9 [facility]
[2017-02-18] MEDS ORDERED: BACTRIM DS 8001 TA1 PO (20:56)
--- NOTE | 2017-02-18 20:58 | Urgent Treatment Center Report ---
History of Present Issue Date/Time Seen by Provider 02/18/172056 Visit Reason Pt arrived:Walked Presenting Problem:PT ADVISES THAT SHE LANCED A BOIL TO THE RT OF VAGINA HERSELF AT 0130 THIS AM AND HAS SINCE BEEN NAUSEAS AND FEELS SICK Location if Accident: Onset of symptoms date/time:/ or onset unknown for:MEDICAL HX UNKNOWN Have you (or family members/close friends) recently traveled outside the [place]? N If Yes, where/when: Have you had exposure to infectious disease within the past month? TB? Other? Specify: Patient state that she noticed that she had a boil in her right groin area last night State that she lanced the area herself at home. State that it has been draining all day and she noticed that it felt sore and made her sick when she tried to clean it and her family told her she needed to come in and get an antibiotic ALLERGIES Coded Allergies: Penicillins (Mild, 01/12/17) Home Medications Active Scripts Azithromycin (Zithromax) 250 MG PO DAILY #6 TAB Prov: 11/04/16 Fluticasone Propionate (Flonase Allergy Relief) 9.9 ML NS DAILY 14 Days Prov: 11/04/16 Azithromycin (Zithromycin (Z-CHU) 250MG Tab) 250 MG PO DAILY #6 TAB Prov: 01/12/17 Methylprednisolone (Medrol Dose Chu) 4 MG PO UD #1 CHU Prov: 01/12/17 Albuterol (Albuterol-Hfa Inhaler) 1-2 PUFFS IH Q4HP PRN SHORTNESS OF BREATH #1 INH Prov: 01/12/17 OFLOXACIN (Floxin 0.3% Otic Solution 5ML) 10 DROP OT BID #1 BOT Prov: 01/07/17 History Medical History General CAD? No Angina: No [place]: No Hypertension? No Hyperlipidemia? No CHF? No DVT? No PE? No COPD? No Asthma? Yes Anemia? No GERD? No Gastric ulcers? No GI Bleed? No Hernia? No Thyroid Problems? No Hypothyroidism? No CVA? No Seizures? No Diabetes? No Insulin Pump: No Home FSBS? No Renal Insuffiency? No UTI? Yes Stones? No BPH? No GB Disease: Yes Nephritic Syndrome? No Asplenia? No Hepatitis? No Sickle Cell Disease? No Arthritis? No Migraines? Yes Cataracts? No Glaucoma? No MRSA? No HIV? No TB? No Anxiety? No Depression? No Cancer? No More? No Immunization HX DT/Tetanus 1-4 Years Ago Flu Refused Pneumonia Refuses Surgical Hx Previous Surgery?Y D & C RT FALLOPIAN TUBE Cholecystectomy TUBAL Family History Family HX Diabetes Yes CAD No Hypertension Yes Hyperlipidemia No Cancer Yes TB No Social History Smoking Hx Smoker: Current Every Day Smoker Tobacco: Yes Type Cigarettes Packs/day 1 1/2 - 2 Packs Alcohol Alcohol: No Review of Systems All Other Systems Reviewed and Negative Skin other Physical Exam Vital Signs Vital Signs Date Time Temp Pulse Resp B/P Pulse O2 O2 Flow FiO2 Ox Delivery Rate 02/19 2024 98.0 101 18 136/81 98 General Appearance normal appearance, WD/WN, no apparent distress Respiratory Status Yes: trachea midline, chest symmetrical, non tender chest. No: respiratory distress. Cardiovascular normal exam, regular rate/rhythm, no peripheral edema Pelvic small raised red area in right crease of leg with small opening and white matter sticking out from area, removed with tweezers and culture obtained and sent to lab Neurologic alert, normal exam, oriented x 3 Medical Decision Making LABS/Meds/Orders Pt receiving controlled substance in ED? No Results/Orders Current Medication Orders Sig/Rickey Start time Last Medication Dose Route Stop Time Status Admin Trimethoprim/ 1 TABLET ONCE ONE 02/18 2100 [facility] Sulfamethoxazole PO 02/18 2101 Trimethoprim/ 0 .STK-MED ONE 02/18 2054 DC Sulfamethoxazole PO Orders Procedure Date/time Status CULTURE, WOUND 02/18 2057 Active Procedures Incision and Drainage Incision and Drainage Risks/benefits discussed with pt/guardian? Yes Problem type boil like area right groin that she opened last night with tweezers Location right crease of leg beside vagina Size cm 2.0 I & D Procedure Simple, betadine prep, sterile drapes applied, Pus small amount, Cultured, Irrigation ml-. no: Needle aspiration, Scalpel incision cm-, Pus large amount, Dissection, Mult. loculations broken , gauze wick placed, Packed. Progress Patient had opened area last night at home, hole was clogged with white matter, area cleaned and matter removed with tweezers and culture obtained and sent to lab left open to drain Departure Departure Time of Disposition 2052 Disposition DC Home or Self Care(routine) Clinical Impression Primary Impression: Abscess Condition STABLE Referrals Berry Cage MD (Family): Tomorrow-Call Office SEBASTIEN DOE,MARGO Sinclair Patient Instructions Boil, DI for Boils Additional Instructions Warm compresses to area to help with swelling and keep area draining Follow up with family doctor if no improvement or worsening of symptoms You was given the name of surgeon for further treatment if further I&D needed done to drain abcess Take medication as prescribed Over the counter Motrin or Tylenol as needed for pain or fever Discharge Counseling Counseled pt/family regarding diagnosis, medications/RX, home care, follow up needs Prescriptions Current Visit Scripts SULFAMETHOXAZOLE W/TRIMETHOPRI (Bactrim Ds Tab) 1 TABLET PO BID #20 TAB at 2103
[2017-02-18 21:01] VITALS: BP 136/81
== END 2017-02-18 21:01 | disposition home or self-care (01) ==
LOC: UTC 20:17
PROC: 0H9HXZZ Drainage of Right Upper Leg Skin, External Approach (ICD-10-PCS; principal; 2017-02-18)
DX: L02.415 Cutaneous abscess of right lower limb (principal); J45.909 Unspecified asthma, uncomplicated; Z88.0 Allergy status to penicillin